=== PATIENT | female | born 1930 | race Caucasian/White ===

== ENCOUNTER 2016-05-21 10:40 | Inpatient (IN) | payer OTHER ==
--- NOTE | 2016-05-21 10:45 | PDOC ---
History of Present Illness <Sam Yarbrough - Last Filed: 05/21/16 15:16> - General History Source: Patient, Longterm Records, Old Records Exam Limitations: No Limitations - History of Present Illness Initial Comments: 05/21/16 11:40 The patient is a 86 year old female with a significant past medical history of Penny's syndrome, dementia, diabetes, congestive heart failure, atrial fibrillation, aortic stenosis, right BKA, anemia, COPD, who presents to the emergency department today from her [facility], for further evaluation of a distended abdomen. The patient states that she does not feel any abdominal pain with or without palpation. The HPI is limited due to the patient's dementia. <Mingo Whitney - Last Filed: 05/21/16 16:09> - General Chief Complaint: Pain Stated Complaint: ABD PAIN Time Seen by Provider: 05/21/16 10:44 Past History - Past Medical History Anemia: Yes Cardiac Disorders: Yes (a-fib, chf, aortic valve disorder) COPD: Yes CHF: Yes Dementia: Yes Diabetes: Yes GI Disorders: Yes (Penny Syndrome) Thyroid Disease: Yes (Hypothyroid) - Surgical History Orthopedic Surgery: Yes - Psycho/Social/Smoking Cessation Hx Anxiety: No Suicidal Ideation: No Smoking History: Unknown if ever smoked Hx Alcohol Use: No Drug/Substance Use Hx: No Substance Use Type: None <Sam Yarbrough - Last Filed: 05/21/16 15:16> <Mingo Whitney - Last Filed: 05/21/16 16:09> - Past Medical History Allergies/Adverse Reactions: Allergies Allergy/AdvReac Type Severity Reaction Status Date / Time gluten Allergy Severe Verified 09/24/15 18:33 Penicillins Allergy Verified 09/19/15 17:40 vancomycin Allergy Verified 09/19/15 17:40 Home Medications: Ambulatory Orders Aspirin [ASA -] 81 mg PO DAILY 09/19/15 Carvedilol 3.125 mg PO BID 09/19/15 Cholecalciferol (Vitamin D3) [Vitamin D3] 1,000 unit PO DAILY 09/19/15 Clopidogrel Bisulfate [Clopidogrel] 75 mg PO DAILY 09/19/15 Docusate Sodium [Colace -] 300 mg PO HS 09/19/15 Furosemide [Lasix -] 40 mg PO DAILY 09/19/15 Insulin Aspart [Novolog Flexpen] 0 unit SQ ASDIR 09/19/15 Insulin Glargine,Hum.rec.anlog [Lantus Solostar PEN -] 20 units SQ DAILY Levothyroxine [Synthroid -] 100 mcg PO DAILY 09/19/15 Magnesium Hydrox 2400MG/30Ml [Milk of Magnesia -] 30 ml PO Q2D 09/19/15 Multivitamins [Multivit ([facility] Formulary)] 1 tab PO DAILY 09/19/15 Polyethylene Glycol 3350 [Gavilax] 17 gm PO DAILY 09/19/15 Sennosides [Senna] 2 tab PO HS 09/19/15 Potassium Chloride [K-Dur -] 20 meq PO DAILY #30 tablet.er 09/24/15 Lactulose 20 gm PO ASDIR 05/21/16 Review of Systems - Review of Systems Able to Perform ROS?: No Comments:: 05/21/16 11:41 Limited due to patient's dementia. Dr. Lebron called and notes that he had the patient on Cipro and Flagyl with no alleviation of symptoms. He wants the patient admitted. Wants patient to receive a GI consult. <Mingo Whitney - Last Filed: 05/21/16 16:09> *Physical Exam - Vital Signs Last Vital Signs Temp Pulse Resp BP Pulse Ox 98.4 F 62 18 155/63 95 05/21/16 10:53 05/21/16 10:53 05/21/16 10:53 05/21/16 10:53 05/21/16 10:53 - Physical Exam Comments: 05/21/16 11:45 GENERAL: A&O x1 in no acute distress HEAD: No signs of trauma EYES: PERRLA, EOMI, sclera anicteric, conjunctiva clear ENT: Auricles normal inspection, hearing grossly normal, nares patent, oropharynx clear without exudates. Moist mucosa NECK: Normal ROM, supple, no lymphadenopathy, JVD, or masses LUNGS: Breath sounds equal, clear to auscultation bilaterally. No wheezes, and no crackles HEART: Regular rate and rhythm, normal S1 and S2, no murmurs, rubs or gallops ABDOMEN: (+) Distended taut abdomen nonpainful to palpation, Soft, nontender, normoactive bowel sounds. No guarding, no rebound. EXTREMITIES: (+) Right AKA amputation. Normal range of motion, no edema. No clubbing or cyanosis. No cords, erythema, or tenderness NEUROLOGICAL: Cranial nerves II through XII grossly intact. Normal speech, normal gait SKIN: Warm, Dry, normal turgor, no rashes or lesions noted. <Mingo Whitney - Last Filed: 05/21/16 16:09> Heart Score/ECG Review - ECG Impressions Comment:: 05/21/16 11:52 ECG Impression: Sinus bradycardia with occasional premature ventricular complexes. Nonspecific intraventricular block. Inferior infarct, age undetermined. Abnormal ECG. <Mingo Whitney - Last Filed: 05/21/16 16:09> ED Treatment Course - LABORATORY CBC & Chemistry Diagram: 05/21/16 11:30 05/21/16 11:30 <Sam Yarbrough - Last Filed: 05/21/16 15:16> - LABORATORY CBC & Chemistry Diagram: 05/21/16 11:30 05/21/16 11:30 <Mingo Whitney - Last Filed: 05/21/16 16:09> Medical Decision Making - Medical Decision Making 05/21/16 14:47 Dr. Katelin Whitaker was paged. 05/21/16 15:07 Dr. Sam Sullivan called back. Case discussed. Agreed to admit. <Mingo Whitney - Last Filed: 05/21/16 16:09> *DC/Admit/Observation/Transfer - Discharge Dispostion Admit: Yes - Attestations Physician Attestion: 05/21/16 10:45 I, Dr. Sam Yarbrough, attest that this document has been prepared under my direction and personally reviewed by me in its entirety. I further attest, that it accurately reflects all work, treatment, procedures and medical decision -making performed by me. <Sam Yarbrough - Last Filed: 05/21/16 15:16> - Attestations Scribe Attestion: 05/21/16 11:47 Documentation prepared by Mingo Whitney, acting as medical billing instructor for Sam Yarbrough MD. <Mingo Whitney - Last Filed: 05/21/16 16:09> Diagnosis at time of Disposition: Pseudoobstruction of colon CHF (congestive heart failure) Qualifiers: Congestive heart failure type: unspecified congestive heart failure type - Discharge Dispostion Condition at time of disposition: Improved
[2016-05-21 11:44] LABS: BASOPHIL 0.8 % (0-2.0); MCH 30.9 pg (25.7-33.7); MCHC 32.7 g/dl (32.0-36.0); MEAN CELL VOLUME 94.4 fl (80-96); MEAN PLT VOLUME 11.1 fl (7.5-11.1); PLATELET COUNT 160 K/MM3 (134-434); RDW 14.4 % (11.6-15.6); WHITE BLOOD COUNT 8.3 K/mm3 (4.0-10.0)
[2016-05-21 11:48] LABS: INR 1.12 (0.82-1.09); PROTHROMBIN TIME (PATIENT) 12.4 SEC (9.98-11.88)
[2016-05-21 12:05] LABS: URINE APPEARANCE CLEAR; URINE BILIRUBIN NEGATIVE (NEGATIVE); URINE BLOOD NEGATIVE (NEGATIVE); URINE COLOR STRAW; URINE GLUCOSE (UA) NEGATIVE (NEGATIVE); URINE KETONE NEGATIVE (NEGATIVE); URINE NITRITE POSITIVE (NEGATIVE); URINE PROTEIN NEGATIVE (NEGATIVE); URINE UROBILINOGEN NEGATIVE E.U./dl (0.2-1.0)
[2016-05-21 12:06] LABS: URINE LEUK ESTERASE TRACE (NEGATIVE)
[2016-05-21 12:06] LABS: ALBUMIN 3.3 g/dl (3.4-5.0); BILIRUBIN,TOTAL 0.3 mg/dL (0.2-1.0); CALCIUM 9.3 mg/dL (8.5-10.1); TOT PROT 6.7 g/dl (6.4-8.2)
[2016-05-21 12:09] LABS: TROPONIN I 0.02 ng/ml (0.00-0.05)
[2016-05-21 12:09] LABS: URINE BACTERIA MODERATE /hpf (NONE SEEN); URINE MUCUS RARE; URINE WBC 3 /hpf (3-5)
--- NOTE | 2016-05-21 12:27 | HP ---
Admitting History and Physical - Primary Care Physician PCP: Ebenezer Farris - Admission Chief Complaint: abd distension History of Present Illness: ER HISTORY - History of Present Illness Initial Comments: 05/21/16 11:40 The patient is a 86 year old female with a significant past medical history of Penny's syndrome, dementia, diabetes, congestive heart failure, atrial fibrillation, aortic stenosis, right BKA, anemia, COPD, who [facility] for further evaluation of a distended abdomen. The patient states that she does not feel any abdominal pain with or without palpation. The HPI is limited due to the patient's dementia. Pt seen by me in the ER Spoke to Dr Farris from [facility] who is her PMD there. For last week, her abdomen had worsening distension - no nausea, pain , vomiting or diarrhea or constipation. She was started on PO Cipro and Flagyl there in [place]-pt was frequently turned and rectal tubes ere placed in the past at the [place] as per PMD. 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) Endocrine: Yes: Diabetes Mellitus - Smoking History Smoking history: Never smoked - Alcohol/Substance Use Hx Alcohol Use: No - Social History ADL: Support Services History of Recent Travel: No Home Medications - Allergies Allergies/Adverse Reactions: Allergies Allergy/AdvReac Type Severity Reaction Status Date / Time gluten Allergy Severe Verified 09/24/15 18:33 Penicillins Allergy Verified 09/19/15 17:40 vancomycin Allergy Verified 09/19/15 17:40 - Home Medications Home Medications: Ambulatory Orders Aspirin [ASA -] 81 mg PO DAILY 09/19/15 Carvedilol 3.125 mg PO BID 09/19/15 Cholecalciferol (Vitamin D3) [Vitamin D3] 1,000 unit PO DAILY 09/19/15 Clopidogrel Bisulfate [Clopidogrel] 75 mg PO DAILY 09/19/15 Docusate Sodium [Colace -] 300 mg PO HS 09/19/15 Furosemide [Lasix -] 40 mg PO DAILY 09/19/15 Insulin Aspart [Novolog Flexpen] 0 unit SQ ASDIR 06/02/16 Insulin Glargine,Hum.rec.anlog [Lantus Solostar PEN -] 20 units SQ DAILY Levothyroxine [Synthroid -] 100 mcg PO DAILY 09/19/15 Magnesium Hydrox 2400MG/30Ml [Milk of Magnesia -] 30 ml PO Q2D 09/19/15 Multivitamins [Multivit ([facility] Formulary)] 1 tab PO DAILY 09/19/15 Polyethylene Glycol 3350 [Gavilax] 17 gm PO DAILY 09/19/15 Sennosides [Senna] 2 tab PO HS 09/19/15 Potassium Chloride [K-Dur -] 20 meq PO DAILY #30 tablet.er 09/24/15 Lactulose 20 gm PO ASDIR 05/21/16 Review of Systems - Review of Systems Constitutional: denies: Chills, Lethargy, Loss of Appetite, Weakness Cardiovascular: denies: Chest Pain, Edema, Palpitations, Shortness of Breath Respiratory: denies: Cough Gastrointestinal: denies: Abdominal Pain, Bloating, Constipation, Diarrhea, Dysphagia, Indigestion, Nausea, Vomiting Physical Examination Vital Signs: Vital Signs Temperature 98.4 F 05/21/16 10:53 Pulse Rate 62 05/21/16 10:53 Respiratory Rate 18 05/21/16 10:53 Blood Pressure 155/63 05/21/16 10:53 O2 Sat by Pulse Oximetry (%) 95 05/21/16 10:53 Constitutional: Yes: No Distress, Calm Cardiovascular: Yes: Regular Rate and Rhythm Respiratory: Yes: Diminished Gastrointestinal: Yes: Normal Bowel Sounds, Soft, Distention (largely distended abdomen, tympanic +). No: Tenderness Extremities: Yes: Other (right BKA) Edema: Yes Edema: LLE: 1+ Psychiatric: Yes: Alert Labs: CBC, BMP 05/21/16 11:30 05/21/16 11:30 Imaging - Results Chest X-ray: Image Reviewed (no infiltrate) Cat Scan: Pending EKG: Pending Problem List - Problems (1) Abdominal distention Code(s): R14.0 - ABDOMINAL DISTENSION (GASEOUS) (2) Adynamic ileus Code(s): K56.0 - PARALYTIC ILEUS (3) CAD (coronary artery disease) Code(s): I25.10 - ATHSCL HEART DISEASE OF [place] CORONARY ARTERY W/O ANG PCTRS Qualifiers: Coronary Disease-Associated Artery/Lesion type: [place] artery [place] vs. transplanted heart: [place] heart Associated angina: without angina Qualified Code(s): I25.10 - Atherosclerotic heart disease of [place] coronary artery without angina pectoris (4) Dementia Code(s): F03.90 - UNSPECIFIED DEMENTIA WITHOUT BEHAVIORAL DISTURBANCE Qualifiers: Dementia type: Alzheimer's disease Alzheimer's disease onset: late- onset Dementia behavioral disturbance: without behavioral disturbance Qualified Code(s): G30.1 - Alzheimer's disease with late onset; F02.81 - Dementia in other diseases classified elsewhere with behavioral disturbance (5) Afib Code(s): I48.91 - UNSPECIFIED ATRIAL FIBRILLATION Qualifiers: Atrial fibrillation type: paroxysmal Qualified Code(s): I48.0 - Paroxysmal atrial fibrillation (6) IDDM (insulin dependent diabetes mellitus) Code(s): E11.9 - TYPE 2 DIABETES MELLITUS WITHOUT COMPLICATIONS Z79.4 - LEACH TANK TENDER (CURRENT) USE OF INSULIN (7) [place]'s syndrome Code(s): K59.8 - OTHER SPECIFIED FUNCTIONAL INTESTINAL DISORDERS Assessment/Plan PLAN -- for Ct abd -- NPO -- IV fluids gentle -- GI evaluation - Dr Sullivan-- per Dr Farris's request -- will need rectal tube for decompression -- will resume PO if ok with GI
--- NOTE | 2016-05-21 15:18 | PN ---
Progress Note (short form) - Note Progress Note: called to evaluate patient however per Dr. Yarbrough, Dr. Farris specifically wanted Dr. Sullivan. He said that he would be calling Dr. Sullivan for consult and cancelling consult to my group
[2016-05-21] MEDS ORDERED: FUROSEMIDE 40 MG/4 ML INJECTABLE VIAL IVPUSH ONE (15:19)
[2016-05-21] MEDS ORDERED: FUROSEMIDE 40 MG/4 ML INJECTABLE VIAL ONE (15:39)
--- NOTE | 2016-05-21 17:06 | EKG ---
Test Reason : Blood Pressure : / mmHG Vent. Rate : 058 BPM Atrial Rate : 058 BPM P-R Int : 194 ms QRS Dur : 144 ms QT Int : 456 ms P-R-T Axes : 086 -17 075 degrees QTc Int : 447 ms SINUS BRADYCARDIA WITH OCCASIONAL PREMATURE VENTRICULAR COMPLEXES NON-SPECIFIC INTRA-VENTRICULAR CONDUCTION BLOCK INFERIOR INFARCT , AGE UNDETERMINED ABNORMAL ECG WHEN COMPARED WITH ECG OF 19-SEP-2015 17:39, NONSPECIFIC T WAVE ABNORMALITY NO LONGER EVIDENT IN ANTERIOR LEADS QT HAS SHORTENED Confirmed by ARUL BAUTISTA MD ([id number]) on 05/21/2016 5:06:30 PM Referred By: Confirmed By:RAUL BAUTISTA MD
[2016-05-21 19:00] VITALS: BMI 37.3
--- NOTE | 2016-05-21 19:18 | CON.GI ---
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) Hepatobiliary: No: Cirrhosis, Cholelithiasis, Cholecystitis, Choledocholithiasis , Hepatitis A, Hepatitis B, Hepatitis C, Other Renal/: No: Renal Failure, Renal Inusuff, BPH, Cancer, Hematuria, Hemodialysis , Neurogenic Bladder, Renal Calculi, UTI, Other Reproductive: No: Ectopic , Endometriosis, Fibroids, PID, Polycystic Ovary Syndrome, Postmenopausal, Other ...: No Infectious Disease: No: AIDS, C-Diff, Herpes Zoster, HIV, MRSA, STD's, Tuberculosis, VREF, Other Musculoskeletal: No: Bursitis, Chronic low back pain, Hemiparesis, Hemiplegia, Osteoarthritis, Paraplegia, Other Rheumatology: No: Fibromyalgia, Gout, Lupus, Rheumatoid Arthritis, Sarcoidosis, Vasculitis, Other Endocrine: Yes: Diabetes Mellitus Additional Medical History: peripheral vascular disease culminating in right AKA. morbid obesity - Alcohol/Substance Use Hx Alcohol Use: No - Smoking History Smoking history: Never smoked - Social History Usual Living Arrangement: Senior Living ADL: Support Services History of Recent Travel: No Home Medications - Allergies Allergies/Adverse Reactions: Allergies Allergy/AdvReac Type Severity Reaction Status Date / Time gluten Allergy Severe Verified 09/24/15 18:33 Penicillins Allergy Verified 09/19/15 17:40 vancomycin Allergy Verified 09/19/15 17:40 - Home Medications Home Medications: Ambulatory Orders Aspirin [ASA -] 81 mg PO DAILY 09/19/15 Carvedilol 3.125 mg PO BID 09/19/15 Cholecalciferol (Vitamin D3) [Vitamin D3] 1,000 unit PO DAILY 09/19/15 Clopidogrel Bisulfate [Clopidogrel] 75 mg PO DAILY 09/19/15 Docusate Sodium [Colace -] 300 mg PO HS 09/19/15 Furosemide [Lasix -] 40 mg PO DAILY 09/19/15 Insulin Aspart [Novolog Flexpen] 0 unit SQ ASDIR 09/19/15 Insulin Glargine,Hum.rec.anlog [Lantus Solostar PEN -] 20 units SQ DAILY Levothyroxine [Synthroid -] 100 mcg PO DAILY 09/19/15 Magnesium Hydrox 2400MG/30Ml [Milk of Magnesia -] 30 ml PO Q2D 09/19/15 Multivitamins [Multivit ([facility] Formulary)] 1 tab PO DAILY 09/19/15 Polyethylene Glycol 3350 [Gavilax] 17 gm PO DAILY 09/19/15 Sennosides [Senna] 2 tab PO HS 09/19/15 Potassium Chloride [K-Dur -] 20 meq PO DAILY #30 tablet.er 09/24/15 Lactulose 20 gm PO ASDIR 05/21/16 Family Disease History - Family Disease History Family History: Unable to Obtain Review of Systems - Review of Systems Constitutional: reports: No Symptoms Eyes: reports: No Symptoms HENT: reports: No Symptoms Neck: reports: No Symptoms Cardiovascular: reports: No Symptoms Gastrointestinal: reports: Abdominal Pain, Bloating, Constipation, Diarrhea, Other (ATR RESIDENTIAL WAS GETTING ENEMAS TWO TO THREE TIMES A WEEK) Genitourinary: reports: No Symptoms Musculoskeletal: reports: No Symptoms Neurological: reports: No Symptoms Physical Exam-GI Vital Signs: Vital Signs Temperature 97.7 F 05/21/16 18:48 Pulse Rate 64 05/21/16 18:48 Respiratory Rate 14 05/21/16 18:48 Blood Pressure 128/60 05/21/16 18:48 O2 Sat by Pulse Oximetry (%) 97 05/21/16 18:48 Constitutional: Yes: No Distress Eyes: Yes: Conjunctiva Clear HENT: Yes: Normocephalic Neck: Yes: Supple Cardiovascular: Yes: Regular Rate and Rhythm Respiratory: Yes: WNL Gastrointestinal Inspection: Yes: Distention ...Auscultate: Yes: Hyperactive Bowel Sounds, Other (HIGH PITCHED) ...Palpate: Yes: Other (NONTENDER FULL) ...Rectal Exam: Yes: Guaiac Negative, Other (MUDDY YELLOW STOOL) Extremities: Yes: Amputation Labs: INR, PTT INR 1.12 (0.82-1.09) 05/21/16 11:30 Laboratory Tests 05/21/16 05/21/16 05/21/16 11:30 11:30 11:30 WBC 8.3 RBC 4.12 Hgb 12.7 Hct 38.9 MCV 94.4 MCHC 32.7 RDW 14.4 Plt Count 160 MPV 11.1 Neutrophils % 70.0 Lymphocytes % 19.8 Monocytes % 7.4 Eosinophils % 2.0 Basophils % 0.8 INR 1.12 Sodium 140 Potassium 4.2 Chloride 105 Carbon Dioxide 25 Anion Gap 10 BUN 41 H D Creatinine 1.0 D Creat Clearance w eGFR 52.69 Random Glucose 184 H D Calcium 9.3 Total Bilirubin 0.3 D AST 9 L ALT 12 Alkaline Phosphatase 95 Creatine Kinase 46 B-Natriuretic Peptide 1963.79 H Total Protein 6.7 Albumin 3.3 L Lipase 104 Urine Nitrite Ur Leukocyte Esterase Urine WBC Urine Bacteria 05/21/16 11:43 WBC RBC Hgb Hct MCV MCHC RDW Plt Count MPV Neutrophils % Lymphocytes % Monocytes % Eosinophils % Basophils % INR Sodium Potassium Chloride Carbon Dioxide Anion Gap BUN Creatinine Creat Clearance w eGFR Random Glucose Calcium Total Bilirubin AST ALT Alkaline Phosphatase Creatine Kinase B-Natriuretic Peptide Total Protein Albumin Lipase Urine Nitrite Positive Ur Leukocyte Esterase Trace H Urine WBC 3 Urine Bacteria Moderate Imaging - Results Cat Scan: Image Reviewed Problem List - Problems (1) Penny's syndrome Assessment/Plan: PATIENT HAS A HISTORY OF A FEW ADMISSIONS FOR THE SAME. THE LAST TIME SHE DID WELL WITH RECTAL TUBE DECOMPRESSION. WITH THE FAMILY'S PERMISSION I INSERTED A RED RECTAL TUBE AND THIS PRODUCED A GUSH OF AIR AND STOOL AND IMMEDIATE RELIEF OF THE SEVERE DISTENSION. SHE CAN HAVE A FULL LIQUID DIET. I WILL KEEP THE TUBE IN AT LEAST OVERNIGHT IF NOT MORE. I WILL GIVE ONE EMEMA VIA THE RECTAL TUBE TONIGHT AND THEN LET IT DRAIN OVER NIGHT IN A KEANE BAG. I WILL EXAMINE HER TOMORROW. IF SHE STARTS GETTING DISTENDED AGAIN THE USE OF IV ERYTHROMICIN HAS BEEN SHOWN TO BE HELPFUL AND THE USE OF NEOSTIGMINE HAS BEEN THE STANDARD OF CARE BUT WITH HER CARDIAC ISSUE THIS MAY BE A PROBLEM. DESPITE THE ABOVE A FLEXIBLE SIGMOIDOSCOPY COULD BE DONE TO REMOVE AIR AND STOOL. SO FAR THE PASSAGE OF THE TUBE SEEMS TO HAVE MADE A BIG DIFFERENCE. WILL FOLLOW. Code(s): K59.8 - OTHER SPECIFIED FUNCTIONAL INTESTINAL DISORDERS (2) CHF (congestive heart failure) Code(s): I50.9 - HEART FAILURE, UNSPECIFIED Qualifiers: Congestive heart failure type: unspecified congestive heart failure type (3) CAD (coronary artery disease) Code(s): I25.10 - ATHSCL HEART DISEASE OF [place] CORONARY ARTERY W/O ANG PCTRS Qualifiers: Coronary Disease-Associated Artery/Lesion type: [place] artery [place] vs. transplanted heart: [place] heart Associated angina: without angina Qualified Code(s): I25.10 - Atherosclerotic heart disease of [place] coronary artery without angina pectoris (4) Chronic atrial fibrillation Code(s): I48.2 - CHRONIC ATRIAL FIBRILLATION (5) IDDM (insulin dependent diabetes mellitus) Code(s): E11.9 - TYPE 2 DIABETES MELLITUS WITHOUT COMPLICATIONS Z79.4 - ALF (CURRENT) USE OF INSULIN (6) Morbid obesity with BMI of 40.0-44.9, adult Code(s): Z68.41 - BODY MASS INDEX (BMI) 40.0-44.9, ADULT (7) Urinary tract infection Code(s): N39.0 - URINARY TRACT INFECTION, SITE NOT SPECIFIED
[2016-05-21] MEDS ORDERED: SODIUM PHOSPHATE/NA BIPHOS 133 ML ENEMA PR ONE (20:25)
[2016-05-21] MEDS: CARVEDILOL 3.125 MG TABLET (FP) PO SCH (22:31)
[2016-05-22] MEDS: INSULIN SLIDING SCALE (NOVOLOG) 1 VIAL SQ SCH ×3 (06:18→16:32)
[2016-05-22] MEDS: LEVOTHYROXINE NA 100 MCG TABLET (FP) PO SCH (06:18)
[2016-05-22] MEDS ORDERED: INSULIN (NOVOLOG) ASPART 100 UNITS/ML 10ML VIAL ONE ×3 (06:39→16:24)
[2016-05-22 07:45] LABS: BASOPHIL 0.9 % (0-2.0); EOSINOPHIL 2.6 % (0-4.5); MCH 31.5 pg (25.7-33.7); MEAN CELL VOLUME 95.5 fl (80-96); NEUTROPHILS 52.9 % (42.8-82.8); PLATELET COUNT 153 K/MM3 (134-434); RDW 14.3 % (11.6-15.6); WHITE BLOOD COUNT 6.8 K/mm3 (4.0-10.0)
[2016-05-22 08:04] LABS: CALCIUM 8.7 mg/dL (8.5-10.1)
[2016-05-22 08:06] LABS: BILIRUBIN,TOTAL 0.3 mg/dL (0.2-1.0); CREATININE 0.9 mg/dL (0.55-1.02); TOT PROT 5.8 g/dl (6.4-8.2)
[2016-05-22 08:26] LABS: THYROID STIMULATING HORMONE 2.79 uIU/ml (0.358-3.74)
--- NOTE | 2016-05-22 08:42 | PN ---
Progress Note (short form) - Note Progress Note: SUBJECTIVE: Patient seen and examined. Chart reviewed. Comfortable. Denies pain. OBJECTIVE: Vital Signs 05/22/16 06:51 Temperature 97.5 F L Pulse Rate 56 L Respiratory 16 Rate Blood Pressure 142/58 Intake & Output 05/21/16 05/22/16 05/22/16 23:59 07:59 15:59 Intake Total 300 Output Total 2300 700 Balance -2000 -700 Weight 101.786 kg 104.099 kg Intake: Oral 300 Output: Urine 2300 700 Hand 2300 700 Other: Voiding Method Indwelling Catheter Indwelling Catheter Bowel Movement No Height 5 ft 5 in Body Mass Index (BMI) 37.3 Weight Measurement Method Built in [facility] Active Medications Aspirin (Asa -) 81 mg PO DAILY [facility] Carvedilol (Coreg -) 3.125 mg PO BID [facility] Last Admin: 05/21/16 22:31 Dose: 3.125 mg Clopidogrel Bisulfate (Plavix -) 75 mg PO DAILY [facility] Furosemide (Lasix -) 40 mg PO DAILY [facility] Insulin Aspart (Novolog Vial Sliding Scale -) 1 vial SQ TIDAC [facility] PRN Reason: Protocol Last Admin: 05/22/16 06:18 Dose: Not Given Levothyroxine Sodium (Synthroid -) 100 mcg PO DAILY@0700 [facility] Last Admin: 05/22/16 06:18 Dose: 100 mcg Potassium Chloride (K-Dur -) 20 meq PO DAILY [facility] CBC, BMP 05/22/16 06:15 05/22/16 06:15 Laboratory Results - last 24 hr 05/21/16 05/21/16 05/21/16 11:30 11:30 11:30 WBC 8.3 RBC 4.12 Hgb 12.7 Hct 38.9 MCV 94.4 MCHC 32.7 RDW 14.4 Plt Count 160 MPV 11.1 Neutrophils % 70.0 Lymphocytes % 19.8 Monocytes % 7.4 Eosinophils % 2.0 Basophils % 0.8 INR 1.12 Sodium 140 Potassium 4.2 Chloride 105 Carbon Dioxide 25 Anion Gap 10 BUN 41 H D Creatinine 1.0 D Creat Clearance w eGFR 52.69 POC Glucometer Random Glucose 184 H D Calcium 9.3 Total Bilirubin 0.3 D AST 9 L ALT 12 Alkaline Phosphatase 95 Creatine Kinase 46 Troponin I 0.02 B-Natriuretic Peptide 1963.79 H Total Protein 6.7 Albumin 3.3 L Lipase 104 TSH Urine Color Urine Appearance Urine pH Ur Specific [place] Urine Protein Urine Glucose (UA) Urine Ketones Urine Blood Urine Nitrite Urine Bilirubin Urine Urobilinogen Ur Leukocyte Esterase Urine RBC Urine WBC Urine Bacteria Urine Mucus 05/21/16 05/22/16 05/22/16 11:43 06:14 06:15 WBC RBC Hgb Hct MCV MCHC RDW Plt Count MPV Neutrophils % Lymphocytes % Monocytes % Eosinophils % Basophils % INR Sodium 141 Potassium 4.5 Chloride 104 Carbon Dioxide 27 Anion Gap 10 BUN 44 H Creatinine 0.9 Creat Clearance w eGFR 59.51 POC Glucometer 110 Random Glucose 113 H D Calcium 8.7 Total Bilirubin 0.3 AST 6 L D ALT 9 L D Alkaline Phosphatase 75 D Creatine Kinase Troponin I B-Natriuretic Peptide Total Protein 5.8 L Albumin 3.0 L Lipase TSH 2.79 Urine Color Straw Urine Appearance Clear Urine pH 5.0 Ur Specific [place] 1.006 Urine Protein Negative Urine Glucose (UA) Negative Urine Ketones Negative Urine Blood Negative Urine Nitrite Positive Urine Bilirubin Negative Urine Urobilinogen Negative Ur Leukocyte Esterase Trace H Urine RBC None Urine WBC 3 Urine Bacteria Moderate Urine Mucus Rare 05/22/16 06:15 WBC 6.8 RBC 3.71 Hgb 11.7 Hct 35.4 MCV 95.5 MCHC 33.0 RDW 14.3 Plt Count 153 MPV 11.0 Neutrophils % 52.9 D Lymphocytes % 35.1 D Monocytes % 8.5 Eosinophils % 2.6 Basophils % 0.9 INR Sodium Potassium Chloride Carbon Dioxide Anion Gap BUN Creatinine Creat Clearance w eGFR POC Glucometer Random Glucose Calcium Total Bilirubin AST ALT Alkaline Phosphatase Creatine Kinase Troponin I B-Natriuretic Peptide Total Protein Albumin Lipase TSH Urine Color Urine Appearance Urine pH Ur Specific [place] Urine Protein Urine Glucose (UA) Urine Ketones Urine Blood Urine Nitrite Urine Bilirubin Urine Urobilinogen Ur Leukocyte Esterase Urine RBC Urine WBC Urine Bacteria Urine Mucus Microbiology 05/21/16 11:43 Urine Culture - Preliminary Urine - Urine Clean Catch Non Lactose Fermenting Gnb PHYSICAL EXAMINATION: Constitutional: Yes: No Distress, Calm Cardiovascular: Yes: Regular Rate and Rhythm Respiratory: Yes: Diminished Gastrointestinal: Yes: Normal Bowel Sounds, Soft No: Tenderness. Extremities: Yes: Other (right BKA) Edema: Yes Edema: LLE: 1+ Psychiatric: Yes: Alert. Rectal and Hand tube in place. ASSESSMENT & PLAN: - Much better with rectal tube. - Continue present care. - Urine culture showing gram negative bacili. - Patient denies any urinary burning. She is asymptomatic. - Will not treat. - Also she is recently treated with antibiotics in the [facility]. - Daily out of bed to chair. - GI to folllow. - Will follow. Problem List - Problems (1) Abdominal distention Code(s): R14.0 - ABDOMINAL DISTENSION (GASEOUS) (2) Adynamic ileus Code(s): K56.0 - PARALYTIC ILEUS (3) CAD (coronary artery disease) Code(s): I25.10 - ATHSCL HEART DISEASE OF [place] CORONARY ARTERY W/O ANG PCTRS Qualifiers: Coronary Disease-Associated Artery/Lesion type: [place] artery [place] vs. transplanted heart: [place] heart Associated angina: without angina Qualified Code(s): I25.10 - Atherosclerotic heart disease of [place] coronary artery without angina pectoris (4) Dementia Code(s): F03.90 - UNSPECIFIED DEMENTIA WITHOUT BEHAVIORAL DISTURBANCE Qualifiers: Dementia type: Alzheimer's disease Alzheimer's disease onset: late- onset Dementia behavioral disturbance: without behavioral disturbance Qualified Code(s): G30.1 - Alzheimer's disease with late onset; F02.81 - Dementia in other diseases classified elsewhere with behavioral disturbance (5) Afib Code(s): I48.91 - UNSPECIFIED ATRIAL FIBRILLATION Qualifiers: Atrial fibrillation type: paroxysmal Qualified Code(s): I48.0 - Paroxysmal atrial fibrillation (6) IDDM (insulin dependent diabetes mellitus) Code(s): E11.9 - TYPE 2 DIABETES MELLITUS WITHOUT COMPLICATIONS 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
[2016-05-22] MEDS: CARVEDILOL 3.125 MG TABLET (FP) PO SCH ×2 (10:04→22:01)
[2016-05-22] MEDS: ASPIRIN 81 MG CHEWABLE TABLETS PO SCH (10:04)
[2016-05-22] MEDS: CLOPIDOGREL BISULFATE 75 MG TABLET (FP) PO SCH (10:05)
[2016-05-22] MEDS: POTASSIUM CHLORIDE TABS 20 MEQ TABLET.ER (FP) PO SCH (10:05)
[2016-05-22] MEDS: FUROSEMIDE 40 MG TABLET (FP) PO SCH (10:05)
--- NOTE | 2016-05-22 16:56 | PN ---
GI Progress Note Subjective: GASTROENTEROLOGY TOLERATES DIET, RECTAL TUBE STILL IN PLACE , NO ABDOMINAL PAIN, MUCH LESS ABDOMINAL DISTENSION TODAY - Objective Vital Signs: Vital Signs Temperature 98.2 F 05/22/16 14:00 Pulse Rate 83 05/22/16 14:00 Respiratory Rate 18 05/22/16 14:00 Blood Pressure 125/63 05/22/16 14:00 O2 Sat by Pulse Oximetry (%) 97 05/21/16 21:00 Constitutional: No Distress Eyes: Yes: Conjunctiva Clear HENT: Yes: Normocephalic Cardiovascular: Yes: Regular Rate and Rhythm Respiratory: Yes: Regular Gastrointestinal Inspection: Yes: Other (OBESE, MUCH LESS DISTENSION TODAY) ...Auscultate: Yes: Normoactive Bowel Sounds ...Palpate: Yes: Soft Extremities: Yes: Amputation Labs: CBC, BMP 05/22/16 06:15 05/22/16 06:15 INR, PTT INR 1.12 (0.82-1.09) 05/21/16 11:30 Laboratory Tests 05/22/16 05/22/16 06:15 06:15 WBC 6.8 RBC 3.71 Hgb 11.7 Hct 35.4 MCV 95.5 MCHC 33.0 RDW 14.3 Plt Count 153 MPV 11.0 Neutrophils % 52.9 D Lymphocytes % 35.1 D Monocytes % 8.5 Eosinophils % 2.6 Basophils % 0.9 Sodium 141 Potassium 4.5 Chloride 104 Carbon Dioxide 27 Anion Gap 10 BUN 44 H Random Glucose 113 H D Calcium 8.7 Total Bilirubin 0.3 AST 6 L D ALT 9 L D Alkaline Phosphatase 75 D Total Protein 5.8 L Albumin 3.0 L TSH 2.79 Problem List - Problems (1) Penny's syndrome Assessment/Plan: GOOD IMPROVEMENT IN ABDOMINAL DISTENSION, RECTAL TUBE REMOVED, FLEET ENEMA WILL BE GIVEN, HIGH FIBER DIET, AXR IN AM, GENTLE HYDRATION. Code(s): K59.8 - OTHER SPECIFIED FUNCTIONAL INTESTINAL DISORDERS (2) CHF (congestive heart failure) Code(s): I50.9 - HEART FAILURE, UNSPECIFIED Qualifiers: Congestive heart failure type: unspecified congestive heart failure type (3) CAD (coronary artery disease) Code(s): I25.10 - ATHSCL HEART DISEASE OF [place] CORONARY ARTERY W/O ANG PCTRS Qualifiers: Coronary Disease-Associated Artery/Lesion type: [place] artery [place] vs. 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
[2016-05-22] MEDS ORDERED: SODIUM PHOSPHATE/NA BIPHOS 133 ML ENEMA PR ONE (16:57)
[2016-05-23] MEDS: LEVOTHYROXINE NA 100 MCG TABLET (FP) PO SCH (06:26)
[2016-05-23] MEDS: INSULIN SLIDING SCALE (NOVOLOG) 1 VIAL SQ SCH ×3 (06:26→18:01)
[2016-05-23] MEDS: ASPIRIN 81 MG CHEWABLE TABLETS PO SCH (10:35)
[2016-05-23] MEDS: CLOPIDOGREL BISULFATE 75 MG TABLET (FP) PO SCH (10:35)
[2016-05-23] MEDS: FUROSEMIDE 40 MG TABLET (FP) PO SCH (10:35)
[2016-05-23] MEDS: CARVEDILOL 3.125 MG TABLET (FP) PO SCH ×2 (10:36→21:12)
[2016-05-23] MEDS: POTASSIUM CHLORIDE TABS 20 MEQ TABLET.ER (FP) PO SCH (10:36)
--- NOTE | 2016-05-23 12:39 | PN ---
Progress Note, Physician Chief Complaint: no distress no abd pain tolerating diet - Current Medication List Current Medications: Active Medications Aspirin (Asa -) 81 mg PO DAILY [facility] Last Admin: 05/23/16 10:35 Dose: 81 mg Carvedilol (Coreg -) 3.125 mg PO BID [facility] Last Admin: 05/23/16 10:36 Dose: 3.125 mg Clopidogrel Bisulfate (Plavix -) 75 mg PO DAILY [facility] Last Admin: 05/23/16 10:35 Dose: 75 mg Furosemide (Lasix -) 40 mg PO DAILY [facility] Last Admin: 05/23/16 10:35 Dose: 40 mg Insulin Aspart (Novolog Vial Sliding Scale -) 1 vial SQ TIDAC [facility] PRN Reason: Protocol Last Admin: 05/23/16 12:37 Dose: Not Given Levothyroxine Sodium (Synthroid -) 100 mcg PO DAILY@0700 [facility] Last Admin: 05/23/16 06:26 Dose: 100 mcg Potassium Chloride (K-Dur -) 20 meq PO DAILY [facility] Last Admin: 05/23/16 10:36 Dose: 20 meq - Objective Vital Signs: Vital Signs Temperature 97.7 F 05/23/16 06:06 Pulse Rate 65 05/23/16 06:06 Respiratory Rate 18 05/23/16 06:06 Blood Pressure 107/46 05/23/16 06:06 O2 Sat by Pulse Oximetry (%) 97 05/22/16 21:00 Constitutional: Yes: No Distress Cardiovascular: Yes: Regular Rate and Rhythm Respiratory: Yes: CTA Bilaterally Gastrointestinal: Yes: Normal Bowel Sounds, Soft, Distention. No: Tenderness Edema: No Labs: CBC, BMP 05/22/16 06:15 05/22/16 06:15 INR, PTT INR 1.12 (0.82-1.09) 05/21/16 11:30 Problem List - Problems (1) Abdominal distention Code(s): R14.0 - ABDOMINAL DISTENSION (GASEOUS) (2) Adynamic ileus Code(s): K56.0 - PARALYTIC ILEUS (3) CAD (coronary artery disease) Code(s): I25.10 - ATHSCL HEART DISEASE OF [place] CORONARY ARTERY W/O ANG PCTRS Qualifiers: Coronary Disease-Associated Artery/Lesion type: [place] artery [place] vs. transplanted heart: [place] heart Associated angina: without angina Qualified Code(s): I25.10 - Atherosclerotic heart disease of [place] coronary artery without angina pectoris (4) Dementia Code(s): F03.90 - UNSPECIFIED DEMENTIA WITHOUT BEHAVIORAL DISTURBANCE Qualifiers: Dementia type: Alzheimer's disease Alzheimer's disease onset: late- onset Dementia behavioral disturbance: without behavioral disturbance Qualified Code(s): G30.1 - Alzheimer's disease with late onset; F02.81 - Dementia in other diseases classified elsewhere with behavioral disturbance (5) Afib Code(s): I48.91 - UNSPECIFIED ATRIAL FIBRILLATION Qualifiers: Atrial fibrillation type: paroxysmal Qualified Code(s): I48.0 - Paroxysmal atrial fibrillation (6) IDDM (insulin dependent diabetes mellitus) Code(s): E11.9 - TYPE 2 DIABETES MELLITUS WITHOUT COMPLICATIONS 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
--- NOTE | 2016-05-23 12:45 | PN ---
GI Progress Note Subjective: GI NOte( covering for Dr Sullivan) : Had large BM today. Eating solid food lunch. Denies abdominal pain or nausea. 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 FUA still pending. Continue Miralax
[2016-05-23] MEDS: POLYETHYLENE GLYCOL 3350 119 GM BTL PO SCH ×2 (15:00→21:12)
[2016-05-24] MEDS: INSULIN SLIDING SCALE (NOVOLOG) 1 VIAL SQ SCH ×3 (06:06→17:46)
[2016-05-24] MEDS: LEVOTHYROXINE NA 100 MCG TABLET (FP) PO SCH (06:07)
--- NOTE | 2016-05-24 09:19 | PN ---
Progress Note, Physician Chief Complaint: no distress no abd pain tolerating diet has bm - Current Medication List Current Medications: Active Medications Aspirin (Asa -) 81 mg PO DAILY [facility] Last Admin: 05/23/16 10:35 Dose: 81 mg Carvedilol (Coreg -) 3.125 mg PO BID [facility] Last Admin: 05/23/16 21:12 Dose: 3.125 mg Clopidogrel Bisulfate (Plavix -) 75 mg PO DAILY [facility] Last Admin: 05/23/16 10:35 Dose: 75 mg Furosemide (Lasix -) 40 mg PO DAILY [facility] Last Admin: 05/23/16 10:35 Dose: 40 mg Insulin Aspart (Novolog Vial Sliding Scale -) 1 vial SQ TIDAC [facility] PRN Reason: Protocol Last Admin: 05/24/16 06:06 Dose: Not Given Levothyroxine Sodium (Synthroid -) 100 mcg PO DAILY@0700 [facility] Last Admin: 05/24/16 06:07 Dose: 100 mcg Polyethylene Glycol (Miralax (For Daily Use) -) 17 gm PO BID [facility] Last Admin: 05/23/16 21:12 Dose: Not Given Potassium Chloride (K-Dur -) 20 meq PO DAILY [facility] Last Admin: 05/23/16 10:36 Dose: 20 meq - Objective Vital Signs: Vital Signs Temperature 97.6 F 05/24/16 06:54 Pulse Rate 66 05/24/16 06:54 Respiratory Rate 20 05/24/16 06:54 Blood Pressure 132/68 05/24/16 06:54 O2 Sat by Pulse Oximetry (%) 97 05/23/16 21:00 Constitutional: Yes: No Distress Cardiovascular: Yes: Regular Rate and Rhythm Respiratory: Yes: Diminished Gastrointestinal: Yes: Normal Bowel Sounds, Soft, Distention. No: Tenderness Edema: No Labs: CBC, BMP 05/22/16 06:15 05/22/16 06:15 INR, PTT INR 1.12 (0.82-1.09) 05/21/16 11:30 Problem List - Problems (1) Abdominal distention Code(s): R14.0 - ABDOMINAL DISTENSION (GASEOUS) (2) Adynamic ileus Code(s): K56.0 - PARALYTIC ILEUS (3) CAD (coronary artery disease) Code(s): I25.10 - ATHSCL HEART DISEASE OF [place] CORONARY ARTERY W/O ANG PCTRS Qualifiers: Coronary Disease-Associated Artery/Lesion type: [place] artery [place] vs. transplanted heart: [place] heart Associated angina: without angina Qualified Code(s): I25.10 - Atherosclerotic heart disease of [place] coronary artery without angina pectoris (4) Dementia Code(s): F03.90 - UNSPECIFIED DEMENTIA WITHOUT BEHAVIORAL DISTURBANCE Qualifiers: Dementia type: Alzheimer's disease Alzheimer's disease onset: late- onset Dementia behavioral disturbance: without behavioral disturbance Qualified Code(s): G30.1 - Alzheimer's disease with late onset; F02.81 - Dementia in other diseases classified elsewhere with behavioral disturbance (5) Afib Code(s): I48.91 - UNSPECIFIED ATRIAL FIBRILLATION Qualifiers: Atrial fibrillation type: paroxysmal Qualified Code(s): I48.0 - Paroxysmal atrial fibrillation (6) IDDM (insulin dependent diabetes mellitus) Code(s): E11.9 - TYPE 2 DIABETES MELLITUS WITHOUT COMPLICATIONS 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
[2016-05-24] MEDS: CLOPIDOGREL BISULFATE 75 MG TABLET (FP) PO SCH (10:11)
[2016-05-24] MEDS: CARVEDILOL 3.125 MG TABLET (FP) PO SCH ×2 (10:11→22:30)
[2016-05-24] MEDS: POTASSIUM CHLORIDE TABS 20 MEQ TABLET.ER (FP) PO SCH (10:12)
[2016-05-24] MEDS: POLYETHYLENE GLYCOL 3350 119 GM BTL PO SCH ×2 (10:12→22:31)
[2016-05-24] MEDS: FUROSEMIDE 40 MG TABLET (FP) PO SCH (10:12)
[2016-05-24] MEDS: ASPIRIN 81 MG CHEWABLE TABLETS PO SCH (10:12)
--- NOTE | 2016-05-24 15:19 | PN ---
GI Progress Note Subjective: GI NOte ( for Dr Sullivan): Had BM and passed a good amount of flatus when turned onto her right side to be cleaned today. Eating with vigor and denies abdominal pain. - Objective Vital Signs: Vital Signs Temperature 98.0 F 05/24/16 14:46 Pulse Rate 64 05/24/16 14:46 Respiratory Rate 18 05/24/16 14:46 Blood Pressure 125/55 05/24/16 14:46 O2 Sat by Pulse Oximetry (%) 97 05/24/16 09:00 CBC,CMP WBC 6.8 K/mm3 (4.0-10.0) 05/22/16 06:15 RBC 3.71 M/mm3 (3.60-5.2) 05/22/16 06:15 Hgb 11.7 GM/dL (10.7-15.3) 05/22/16 06:15 Hct 35.4 % (32.4-45.2) 05/22/16 06:15 MCV 95.5 fl (80-96) 05/22/16 06:15 MCHC 33.0 g/dl (32.0-36.0) 05/22/16 06:15 RDW 14.3 % (11.6-15.6) 05/22/16 06:15 Plt Count 153 K/MM3 (134-434) 05/22/16 06:15 MPV 11.0 fl (7.5-11.1) 05/22/16 06:15 Neutrophils % 52.9 % (42.8-82.8) D 05/22/16 06:15 Lymphocytes % 35.1 % (8-40) D 05/22/16 06:15 Monocytes % 8.5 % (3.8-10.2) 05/22/16 06:15 Eosinophils % 2.6 % (0-4.5) 05/22/16 06:15 Basophils % 0.9 % (0-2.0) 05/22/16 06:15 Sodium 141 mmol/L (136-145) 05/22/16 06:15 Potassium 4.5 mmol/L (3.5-5.1) 05/22/16 06:15 Chloride 104 mmol/L (98-107) 05/22/16 06:15 Carbon Dioxide 27 mmol/L (21-32) 05/22/16 06:15 Anion Gap 10 (8-16) 05/22/16 06:15 BUN 44 mg/dL (7-18) H 05/22/16 06:15 Creatinine 0.9 mg/dL (0.55-1.02) 05/22/16 06:15 Creat Clearance w eGFR 59.51 (>60) 05/22/16 06:15 POC Glucometer 231 UNITS (()) 05/24/16 11:36 Random Glucose 113 mg/dL (74-106) H D 05/22/16 06:15 Calcium 8.7 mg/dL (8.5-10.1) 05/22/16 06:15 Total Bilirubin 0.3 mg/dL (0.2-1.0) 05/22/16 06:15 AST 6 U/L (15-37) L D 05/22/16 06:15 ALT 9 U/L (12-78) L D 05/22/16 06:15 Alkaline Phosphatase 75 U/L (45-117) D 05/22/16 06:15 Creatine Kinase 46 IU/L (26-192) 05/21/16 11:30 Troponin I 0.02 ng/ml (0.00-0.05) 05/21/16 11:30 B-Natriuretic Peptide 1963.79 pg/ml (5-450) H 05/21/16 11:30 Total Protein 5.8 g/dl (6.4-8.2) L 05/22/16 06:15 Albumin 3.0 g/dl (3.4-5.0) L 05/22/16 06:15 Lipase 104 U/L (73-393) 05/21/16 11:30 TSH 2.79 uIU/ml (0.358-3.74) 05/22/16 06:15 Constitutional: Calm Gastrointestinal Inspection: Yes: Distention ...Auscultate: Yes: Normoactive Bowel Sounds (tinkles) ...Palpate: Yes: Soft, Other (nontender) ...Percussion: Yes: Tympanitic Labs: CBC, BMP 05/22/16 06:15 05/22/16 06:15 INR, PTT INR 1.12 (0.82-1.09) 05/21/16 11:30 Assessment/Plan 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 Continue Miralax. Dr Sullivan will return tomorrow
[2016-05-25] MEDS: NITROFURANTOIN MACROCRYSTAL 50 MG CAPSULE (FP) PO SCH ×3 (00:06→12:03)
[2016-05-25] MEDS: LEVOTHYROXINE NA 100 MCG TABLET (FP) PO SCH (06:21)
[2016-05-25] MEDS: INSULIN SLIDING SCALE (NOVOLOG) 1 VIAL SQ SCH ×2 (06:54→11:31)
--- NOTE | 2016-05-25 08:16 | PN ---
Progress Note (short form) - Note Progress Note: SUBJECTIVE: Patient seen and examined. Chart reviewed. Comfortable. Having bowel movements. Denies pain. OBJECTIVE: Vital Signs 05/25/16 04:49 Temperature 97.8 F Pulse Rate 60 Respiratory 20 Rate Blood Pressure 135/58 Intake & Output 05/24/16 05/25/16 05/25/16 23:59 07:59 15:59 Intake Total 300 Balance 300 Intake: Oral 300 Other: Voiding Method Incontinent # Unmeasured Voids Void 1 3 Bowel Movement Yes Yes # Bowel Movements 1 Active Medications Aspirin (Asa -) 81 mg PO DAILY [facility] Last Admin: 05/24/16 10:12 Dose: 81 mg Carvedilol (Coreg -) 3.125 mg PO BID [facility] Last Admin: 05/24/16 22:30 Dose: 3.125 mg Clopidogrel Bisulfate (Plavix -) 75 mg PO DAILY [facility] Last Admin: 05/24/16 10:11 Dose: 75 mg Furosemide (Lasix -) 40 mg PO DAILY [facility] Last Admin: 05/24/16 10:12 Dose: 40 mg Insulin Aspart (Novolog Vial Sliding Scale -) 1 vial SQ TIDAC [facility] PRN Reason: Protocol Last Admin: 05/25/16 06:54 Dose: Not Given Levothyroxine Sodium (Synthroid -) 100 mcg PO DAILY@0700 [facility] Last Admin: 05/25/16 06:21 Dose: 100 mcg Nitrofurantoin Macrocrystals (Macrodantin -) 50 mg PO Q6HPO [facility] Last Admin: 05/25/16 06:22 Dose: 50 mg Polyethylene Glycol (Miralax (For Daily Use) -) 17 gm PO BID [facility] Last Admin: 05/24/16 22:31 Dose: Not Given Potassium Chloride (K-Dur -) 20 meq PO DAILY [facility] Last Admin: 05/24/16 10:12 Dose: 20 meq CBC, BMP 05/22/16 06:15 05/22/16 06:15 Laboratory Results - last 24 hr 05/24/16 05/24/16 05/25/16 11:36 17:43 05:52 POC Glucometer 231 156 143 Microbiology 05/21/16 11:43 Urine Culture - Final Urine - Urine Clean Catch Escherichia Coli 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 Edema: No ASSESSMENT & PLAN: - Clinically much better. - Resolving pseudo-obstruction. - Rectal tube out. - GI to follow. - Discharge planning. - Likely today if cleared by GI. Problem List - Problems (1) Abdominal distention Code(s): R14.0 - ABDOMINAL DISTENSION (GASEOUS) (2) Adynamic ileus Code(s): K56.0 - PARALYTIC ILEUS (3) CAD (coronary artery disease) Code(s): I25.10 - ATHSCL HEART DISEASE OF [place] CORONARY ARTERY W/O ANG PCTRS Qualifiers: Coronary Disease-Associated Artery/Lesion type: [place] artery [place] vs. transplanted heart: [place] heart Associated angina: without angina Qualified Code(s): I25.10 - Atherosclerotic heart disease of [place] coronary artery without angina pectoris (4) Dementia Code(s): F03.90 - UNSPECIFIED DEMENTIA WITHOUT BEHAVIORAL DISTURBANCE Qualifiers: Dementia type: Alzheimer's disease Alzheimer's disease onset: late- onset Dementia behavioral disturbance: without behavioral disturbance Qualified Code(s): G30.1 - Alzheimer's disease with late onset; F02.81 - Dementia in other diseases classified elsewhere with behavioral disturbance (5) Afib Code(s): I48.91 - UNSPECIFIED ATRIAL FIBRILLATION Qualifiers: Atrial fibrillation type: paroxysmal Qualified Code(s): I48.0 - Paroxysmal atrial fibrillation (6) IDDM (insulin dependent diabetes mellitus) Code(s): E11.9 - TYPE 2 DIABETES MELLITUS WITHOUT COMPLICATIONS 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
[2016-05-25] MEDS: CLOPIDOGREL BISULFATE 75 MG TABLET (FP) PO SCH (10:12)
[2016-05-25] MEDS: CARVEDILOL 3.125 MG TABLET (FP) PO SCH (10:12)
[2016-05-25] MEDS: FUROSEMIDE 40 MG TABLET (FP) PO SCH (10:12)
[2016-05-25] MEDS: ASPIRIN 81 MG CHEWABLE TABLETS PO SCH (10:12)
[2016-05-25] MEDS: POLYETHYLENE GLYCOL 3350 119 GM BTL PO SCH (10:13)
[2016-05-25] MEDS: POTASSIUM CHLORIDE TABS 20 MEQ TABLET.ER (FP) PO SCH (10:13)
[2016-05-25 10:50] VITALS: TEMP 98.2
[2016-05-25] MEDS ORDERED: INSULIN (NOVOLOG) ASPART 100 UNITS/ML 10ML VIAL ONE (11:28)
--- NOTE | 2016-05-25 12:33 | DS ---
Physical Examination Vital Signs: Vital Signs Temperature 98.2 F 05/25/16 09:00 Pulse Rate 60 05/25/16 09:00 Respiratory Rate 18 05/25/16 09:00 Blood Pressure 116/62 05/25/16 09:00 O2 Sat by Pulse Oximetry (%) 97 05/25/16 09:00 Findings/Remarks: see today progress note Labs: CBC, BMP 05/22/16 06:15 05/22/16 06:15 Discharge Summary Reason For Visit: CHF; ABDOMINAL DISTENTION; DEMENTIA Current Active Problems CHF (congestive heart failure) (Acute) Pseudoobstruction of colon (Acute) Hospital Course: admitted for sbo Pt has pseudo obs. Resolved with Rectal tube GI followed pt also has e coli - esbl in urine - being treated with Macrobid Stable for d/c meds updated/ reconciled Need frequent change of positioning. Discussed with nursing staff. Condition: Improved - Instructions Disposition: LONG-TERM FACILITY - Home Medications Comprehensive Discharge Medication List: Ambulatory Orders Aspirin [ASA -] 81 mg PO DAILY 09/19/15 Carvedilol 3.125 mg PO BID 09/19/15 Cholecalciferol (Vitamin D3) [Vitamin D3] 1,000 unit PO DAILY 09/19/15 Clopidogrel Bisulfate [Clopidogrel] 75 mg PO DAILY 09/19/15 Docusate Sodium [Colace -] 300 mg PO HS 09/19/15 Furosemide [Lasix -] 40 mg PO DAILY 09/19/15 Insulin Aspart [Novolog Flexpen] 0 unit SQ ASDIR 09/19/15 Insulin Glargine,Hum.rec.anlog [Lantus Solostar PEN -] 20 units SQ DAILY Levothyroxine [Synthroid -] 100 mcg PO DAILY 09/19/15 Magnesium Hydrox 2400MG/30Ml [Milk of Magnesia -] 30 ml PO Q2D 09/19/15 Multivitamins [Multivit ([facility] Formulary)] 1 tab PO DAILY 09/19/15 Polyethylene Glycol 3350 [Gavilax] 17 gm PO DAILY 09/19/15 Sennosides [Senna] 2 tab PO HS 09/19/15 Potassium Chloride [K-Dur -] 20 meq PO DAILY #30 tablet.er 09/24/15 Lactulose 20 gm PO ASDIR 05/21/16 Nitrofurantoin Macrocrystal [Macrodantin -] 50 mg PO Q6HPO #24 capsule 05/25/16
[2016-05-25 15:01] VITALS: BP 100/60; PULSE 59
== END 2016-05-25 15:58 | DRG 392 ==
LOC: JER 10:40 → JERBED 15:24 → J8W 16:59
PROVIDERS: ADMIT Internal Medicine; ATTEND Internal Medicine
DX: K59.8 Other specified functional intestinal disorders (principal); K56.0 Paralytic ileus; N39.0 Urinary tract infection, site not specified; F03.90 Unspecified dementia, unspecified severity, without behavioral disturbance, psychotic disturbance, mood disturbance, and anxiety; I48.91 Unspecified atrial fibrillation; I35.0 Nonrheumatic aortic (valve) stenosis; Z89.511 Acquired absence of right leg below knee; D64.9 Anemia, unspecified; J44.9 Chronic obstructive pulmonary disease, unspecified; E11.40 Type 2 diabetes mellitus with diabetic neuropathy, unspecified; Z79.4 Long term (current) use of insulin; I25.10 Atherosclerotic heart disease of native coronary artery without angina pectoris; I48.0 Paroxysmal atrial fibrillation; E66.01 Morbid (severe) obesity due to excess calories; Z68.38 Body mass index [BMI] 38.0-38.9, adult; B96.20 Unspecified Escherichia coli [E. coli] as the cause of diseases classified elsewhere
CPT/HCPCS: 36415; 71010-TC; 74000-TC; 74176-TC; 80053; 81003; 81015; 82550; 83690; 83880; 84443; 84484; 85025; 85610; 87086; 87186; 93005; 93010; 99283-25

== ENCOUNTER 2016-10-14 23:26 | Inpatient (IN) | payer OTHER ==
[2016-10-15] MEDS ORDERED: SODIUM CHLORIDE 1,000 ML IV STA (00:26)
--- NOTE | 2016-10-15 00:30 | PDOC ---
History of Present Illness - General History Source: Detention Records Exam Limitations: Dementia - History of Present Illness Initial Comments: 10/15/16 00:39 The patient is a 86 year old female with significant past medical history of [place]'s syndrome, dementia, diabetes, hypertension, congestive heart failure, afib, aortic stenosis, right BKA, anemia, COPD who presents to the ED BIBA from [facility] for abnormal labs. Pt is a DNR as per [place] records. According to [place] notes, patient had her labs drawn on 10/13 and was noted that her BUN increasing , Hgb is 7.6, BNP 97, and creatine 1. Allergies: penicillin, vancomycin, gluten Social History: No alcohol, tobacco, or drug use reported. Past Surgical History: s/p right BKA PCP: Dr. Ebenezer Farris <Jazmine Morales - Last Filed: 10/15/16 02:52> - General History Source: Patient <Ghassan Miranda - Last Filed: 10/15/16 02:54> - General Chief Complaint: Revisit, Lab Variance Stated Complaint: ABNORMAL LABS Time Seen by Provider: 10/14/16 23:50 Past History <Jazmine Morales - Last Filed: 10/15/16 02:52> - Past Medical History Anemia: Yes Cardiac Disorders: Yes (a-fib, chf, aortic valve disorder) COPD: Yes CHF: Yes Dementia: Yes Diabetes: Yes GI Disorders: Yes ([place] Syndrome) Thyroid Disease: Yes (Hypothyroid) - Surgical History Orthopedic Surgery: Yes (RT BKA) - Psycho/Social/Smoking Cessation Hx Anxiety: No Suicidal Ideation: No Smoking History: Never smoked Have you smoked in the past 12 months: No Information on smoking cessation initiated: No Hx Alcohol Use: No Drug/Substance Use Hx: No Substance Use Type: None Hx Substance Use Treatment: No <Ghassan Miranda - Last Filed: 10/15/16 02:54> - Past Medical History Allergies/Adverse Reactions: Allergies Allergy/AdvReac Type Severity Reaction Status Date / Time gluten Allergy Severe Verified 09/24/15 18:33 Penicillins Allergy Verified 09/19/15 17:40 vancomycin Allergy Verified 09/19/15 17:40 Home Medications: Ambulatory Orders Aspirin [ASA -] 81 mg PO DAILY 09/19/15 Carvedilol 3.125 mg PO BID 09/19/15 Cholecalciferol (Vitamin D3) [Vitamin D3] 1,000 unit PO DAILY 09/19/15 Clopidogrel Bisulfate [Clopidogrel] 75 mg PO DAILY 09/19/15 Docusate Sodium [Colace -] 300 mg PO HS 09/19/15 Furosemide [Lasix -] 40 mg PO DAILY 09/19/15 Insulin Aspart [Novolog Flexpen] 0 unit SQ ASDIR 09/19/15 Insulin Glargine,Hum.rec.anlog [Lantus Solostar PEN -] 20 units SQ DAILY Levothyroxine [Synthroid -] 100 mcg PO DAILY 09/19/15 Magnesium Hydrox 2400MG/30Ml [Milk of Magnesia -] 30 ml PO Q2D 09/19/15 Multivitamins [Multivit ([facility] Formulary)] 1 tab PO DAILY 09/19/15 Polyethylene Glycol 3350 [Gavilax] 17 gm PO DAILY 09/19/15 Sennosides [Senna] 2 tab PO HS 09/19/15 Potassium Chloride [K-Dur -] 20 meq PO DAILY #30 tablet.er 09/24/15 Lactulose 20 gm PO ASDIR 05/21/16 Nitrofurantoin Macrocrystal [Macrodantin -] 50 mg PO Q6HPO #24 capsule 05/25/16 Review of Systems - Review of Systems Able to Perform ROS?: No Comments:: 10/15/16 00:39 Unable to obtain due to clinical condition <Jazmine Morales - Last Filed: 10/15/16 02:52> *Physical Exam - Vital Signs Last Vital Signs Temp Pulse Resp BP Pulse Ox 97.6 F 63 14 123/54 100 10/14/16 23:46 10/14/16 23:46 10/14/16 23:46 10/14/16 23:46 10/14/16 23:46 - Physical Exam Comments: 10/15/16 00:39 GENERAL: Groaning. Well developed, well nourished. No acute distress. HEENT: Normocephalic, atraumatic. PERRLA, EOMI. No conjunctival pallor. Sclera are non- icteric. Moist mucous membranes. Oropharynx is clear. NECK: Supple. Full ROM. No JVD. Carotid pulses 2+ and symmetric, without bruits. No thyromegaly. No lymphadenopathy. CARDIOVASCULAR: Regular rate and rhythm. No murmurs, rubs, or gallops. Distal pulses are 2+ and symmetric. PULMONARY: No evidence of respiratory distress. Lungs clear to auscultation bilaterally. No wheezing, rales or rhonchi. ABDOMINAL: Soft. Moderately distended. No rebound or guarding. Normoactive bowel sounds. MUSCULOSKELETAL Normal range of motion at all joints. No bony deformities. EXTREMITIES: Right BKA. No cyanosis. No clubbing. No edema.. SKIN: Warm and dry. Normal capillary refill. No rashes. No jaundice. NEUROLOGICAL: Pt has dementia as per baseline <Jazmine Morales - Last Filed: 10/15/16 02:52> - Vital Signs Last Vital Signs Temp Pulse Resp BP Pulse Ox 97.6 F 63 14 123/54 100 10/14/16 23:46 10/14/16 23:46 10/14/16 23:46 10/14/16 23:46 10/14/16 23:46 <Ghassan Miranda - Last Filed: 10/15/16 02:54> Heart Score/ECG Review - ECG Impressions Comment:: 10/15/16 00:45 Sinus rhythm with premature atrial complexes @62bpm LBBB Abnormal ECG <Jazmine Morales - Last Filed: 10/15/16 02:52> ED Treatment Course - LABORATORY CBC & Chemistry Diagram: 10/15/16 00:40 10/15/16 00:40 - RADIOLOGY Radiograph Interpretation: 10/15/16 02:18 EXAM: CT abdomen and pelvis without contrast Reviewed by Imaging tongue carrier: FINDINGS: Lung bases are clear. The visualized cardiac chambers are normal size and configuration. No change in small pericardial effusion. No change in 15 mm splenic hypodensity, likely a solid lesion which can be followed up with CT or MRI. Gallbladder sludge is noted without pericholecystic inflammation. Normal unenhanced liver, pancreas, adrenal glands and kidneys. There is no change in diffuse severe colonic distention, with air and liquid stool with the sigmoid colon measuring up to 12.1 cm. This extends to the distal rectum is suspicious for toxic megacolon. Patient is at risk for bowel perforation. No pneumatosis or free air. There is no aortic aneurysm. There is no significant retroperitoneal lymphadenopathy. There is no evidence of appendicitis although the appendix is not clearly visualized. The uterus is atrophic or removed. Urinary bladder is unremarkable. There is no pelvic free fluid. No discrete pelvic lymphadenopathy is identified. IMPRESSION: Persistent or repeat massive colonic distention suspicious for toxic megacolon, placing the patient at risk for bowel perforation. No change small pericardial effusion. No change in probable small solid slightly atypical for urgent CT or MRI as clinically indicated. <Jazmine Morales - Last Filed: 10/15/16 02:52> - LABORATORY CBC & Chemistry Diagram: 10/15/16 00:40 10/15/16 00:40 - RADIOLOGY Radiology Studies Ordered: Category Date Time Status CHEST X-RAY PORTABLE* [RAD] Stat Radiology 10/15/16 00:26 Ordered <Ghassan Miranda - Last Filed: 10/15/16 02:54> Medical Decision Making - Medical Decision Making 10/15/16 02:[address] Marianna Franks (via answering service) Awaiting call back 10/15/16 02:48 Second call placed to Dr. Franks (via answering service) Awaiting call back 10/15/16 02:51 Patient's case discussed with Dr. Franks <Jazmine Morales - Last Filed: 10/15/16 02:52> - Medical Decision Making 10/15/16 02:21 Dr. Miranda: The scribe's documentation has been prepared under my direction and personally reviewed by me in its entirery. I confirm that the note above accurately reflects all work, treatment, procedures, and medical decision making performed by me. <Ghassan Miranda - Last Filed: 10/15/16 02:54> *DC/Admit/Observation/Transfer - Attestations Scribe Attestion: 10/15/16 00:40 Documentation prepared by Jazmine Morales, acting as medical pathology teacher for Ghassan Miranda MD/. <Jazmine Morales - Last Filed: 10/15/16 02:52> - Discharge Dispostion Admit: Yes <Ghassan Miranda - Last Filed: 10/15/16 02:54> Diagnosis at time of Disposition: Toxic megacolon Anemia Qualifiers: Anemia type: unspecified type Qualified Code(s): D64.9 - Anemia, unspecified - Discharge Dispostion Condition at time of disposition: Stable - Referrals Referrals: Ebenezer Farris MD [Primary Care Provider] -
[2016-10-15 00:50] LABS: MCH 31.3 pg (25.7-33.7); MCHC 32.1 g/dl (32.0-36.0); MEAN CELL VOLUME 97.4 fl (80-96); MEAN PLT VOLUME 10.3 fl (7.5-11.1); PLATELET COUNT 204 K/MM3 (134-434); RDW 13.6 % (11.6-15.6)
[2016-10-15 01:53] LABS: ACETONE SERUM NEGATIVE (NEGATIVE)
[2016-10-15 01:59] LABS: ALBUMIN 2.8 g/dl (3.4-5.0); ANION GAP 10 (8-16); BILIRUBIN,TOTAL 0.2 mg/dL (0.2-1.0); CALCIUM 8.4 mg/dL (8.5-10.1); CO2 28 mmol/L (21-32); CREATININE 0.9 mg/dL (0.55-1.02); GLUCOSE,RANDOM 138 mg/dL (74-106); MAGNESIUM 2.2 mg/dL (1.8-2.4); SGOT/AST 11 U/L (15-37); SGPT/ALT 13 U/L (12-78); TOT PROT 5.6 g/dl (6.4-8.2)
[2016-10-15 02:14] LABS: ALK PHOS 79 U/L (45-117)
[2016-10-15 02:16] LABS: TROPONIN I 1.49 ng/ml (0.00-0.05)
[2016-10-15 02:33] LABS: PLATELET ESTIMATE ADEQUATE (NORMAL)
[2016-10-15] MEDS ORDERED: DEXTROSE 5%-0.45% SALINE 1,000 ML IV SCH (03:00)
[2016-10-15 07:52] VITALS: BMI 37.3
--- NOTE | 2016-10-15 10:26 | HP ---
Admitting History and Physical - Primary Care Physician PCP: Ebenezer Farris - Admission Chief Complaint: anemia History of Present Illness: ER history - History of Present Illness Initial Comments: 10/15/16 00:39 The patient is a 86 year old female with significant past medical history of [place]'s syndrome, dementia, diabetes, hypertension, congestive heart failure, afib, aortic stenosis, right BKA, anemia, COPD who presents to the ED BIBA from [facility] for abnormal labs. Pt is a DNR as per [place] records. According to [place] notes, patient had her labs drawn on 10/13 and was noted that her BUN increasing , Hgb is 7.6, BNP 97, and creatine 1. Allergies: penicillin, vancomycin, gluten Social History: No alcohol, tobacco, or drug use reported. Past Surgical History: s/p right BKA PCP: Dr. Ebenezer Farris Pt examined by me on the floors Spoke with GI and Cardiology Pt decompressed by GI, no distress No SOB , chest pain , abdominal pain Spoke with her PMD at [place]- Dr Garzon-- in [place] , nurses turn her and roll her constantly to decompress her. She never c/o pain . 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) Endocrine: Yes: Diabetes Mellitus - Advance Directives Advance Directives: Yes: DNR - Smoking History Smoking history: Never smoked Have you smoked in the past 12 months: No - Alcohol/Substance Use Hx Alcohol Use: No - Social History ADL: Support Services History of Recent Travel: No Home Medications - Allergies Allergies/Adverse Reactions: Allergies Allergy/AdvReac Type Severity Reaction Status Date / Time gluten Allergy Severe Verified 09/24/15 18:33 Penicillins Allergy Verified 09/19/15 17:40 vancomycin Allergy Verified 09/19/15 17:40 - Home Medications Home Medications: Ambulatory Orders Aspirin [ASA -] 81 mg PO DAILY 09/19/15 Carvedilol 3.125 mg PO BID 09/19/15 Cholecalciferol (Vitamin D3) [Vitamin D3] 1,000 unit PO DAILY 09/19/15 Clopidogrel Bisulfate [Clopidogrel] 75 mg PO DAILY 09/19/15 Docusate Sodium [Colace -] 300 mg PO HS 09/19/15 Furosemide [Lasix -] 40 mg PO DAILY 09/19/15 Insulin Aspart [Novolog Flexpen] 0 unit SQ ASDIR 09/19/15 Insulin Glargine,Hum.rec.anlog [Lantus Solostar PEN -] 20 units SQ DAILY Levothyroxine [Synthroid -] 100 mcg PO DAILY 09/19/15 Magnesium Hydrox 2400MG/30Ml [Milk of Magnesia -] 30 ml PO Q2D 09/19/15 Multivitamins [Multivit ([facility] Formulary)] 1 tab PO DAILY 09/19/15 Polyethylene Glycol 3350 [Gavilax] 17 gm PO DAILY 09/19/15 Sennosides [Senna] 2 tab PO HS 09/19/15 Potassium Chloride [K-Dur -] 20 meq PO DAILY #30 tablet.er 09/24/15 Lactulose 20 gm PO ASDIR 05/21/16 Nitrofurantoin Macrocrystal [Macrodantin -] 50 mg PO Q6HPO #24 capsule 05/25/16 Review of Systems - Review of Systems Constitutional: denies: Chills, Fever, Unintentional Wgt. Loss Cardiovascular: denies: Chest Pain, Edema, Palpitations, Shortness of Breath Respiratory: denies: SOB Gastrointestinal: denies: Abdominal Pain, Constipation, Rectal Bleeding Physical Examination Vital Signs: Vital Signs Temperature 97.5 F L 10/15/16 07:35 Pulse Rate 72 10/15/16 07:35 Respiratory Rate 18 10/15/16 07:35 Blood Pressure 142/63 10/15/16 07:35 O2 Sat by Pulse Oximetry (%) 96 10/15/16 07:35 Constitutional: Yes: No Distress, Calm Cardiovascular: Yes: Regular Rate and Rhythm Respiratory: Yes: Diminished, Rhonchi Gastrointestinal: Yes: Normal Bowel Sounds, Soft, Abdomen, Obese, Distention. No: Tenderness Edema: No Imaging - Results Cat Scan: Report Reviewed EKG: Image Reviewed (sinus, LBBB) Problem List - Problems (1) Anemia Code(s): D64.9 - ANEMIA, UNSPECIFIED Qualifiers: Anemia type: unspecified type Qualified Code(s): D64.9 - Anemia, unspecified (2) Abdominal distention Code(s): R14.0 - ABDOMINAL DISTENSION (GASEOUS) (3) Adynamic ileus Code(s): K56.0 - PARALYTIC ILEUS (4) Afib Code(s): I48.91 - UNSPECIFIED ATRIAL FIBRILLATION Qualifiers: Atrial fibrillation type: paroxysmal Qualified Code(s): I48.0 - Paroxysmal atrial fibrillation (5) CAD (coronary artery disease) Code(s): I25.10 - ATHSCL HEART DISEASE OF [place] CORONARY ARTERY W/O ANG PCTRS Qualifiers: Coronary Disease-Associated Artery/Lesion type: [place] artery [place] vs. transplanted heart: [place] heart Associated angina: without angina Qualified Code(s): I25.10 - Atherosclerotic heart disease of [place] coronary artery without angina pectoris (6) CHF (congestive heart failure) Code(s): I50.9 - HEART FAILURE, UNSPECIFIED Qualifiers: Congestive heart failure type: diastolic Congestive heart failure chronicity: chronic Qualified Code(s): I50.32 - Chronic diastolic ( congestive) heart failure (7) NSTEMI (non-ST elevated myocardial infarction) Code(s): I21.4 - NON-ST ELEVATION (NSTEMI) MYOCARDIAL INFARCTION Assessment/Plan PLAN Transfuse two units total and check CBC afterwards Check second set cardiac enzyme Cardiology eval Will order Echo Pt does not wish for colectomy- had previous conversations with her check stool guaic Protonix clear liquids hold off ASA and Plavix-- spoke with Dr garzon, she was on this for h/o NSTEMI that occurred many years ago . No known h/o stent placement. VTE-- SCD for left leg , Rt BKA Time spent 30 min
[2016-10-15] MEDS ORDERED: PANTOPRAZOLE SODIUM 40 MG in SODIUM CHLORIDE 100 ML IVPB ONE (10:28)
[2016-10-15] MEDS ORDERED: FUROSEMIDE 40 MG/4 ML INJECTABLE VIAL IVPB ONE (10:35)
--- NOTE | 2016-10-15 10:54 | PN ---
Progress Note (short form) - Note Progress Note: Consult dictated: 1. Anemia: Guaiac + on exam maintained on dual antiplatelet therapy. elevated BUN out of proportion to Cr. ? UGIB. Discused with her daughter. Discussed upper endoscopy to exclude upper GI pathology such as PUD once cleared by cardiology. Discussed risks/benefits. She would like to discuss things with her family. Hold Antiplatelets for now. Clear liquids, Protonix, cardio evaluation, echo, cardiac profile ordered, repeat EKG performed. ? lateral ischemia ? need for continued dial antiplateley therapy as an outpatient Should be maintained on GI prophylaxis as an outpatient 2. 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
--- NOTE | 2016-10-15 11:04 | EKG ---
Test Reason : Blood Pressure : / mmHG Vent. Rate : 077 BPM Atrial Rate : 077 BPM P-R Int : 192 ms QRS Dur : 110 ms QT Int : 414 ms P-R-T Axes : 075 -17 102 degrees QTc Int : 468 ms SINUS RHYTHM WITH OCCASIONAL PREMATURE VENTRICULAR COMPLEXES LOW VOLTAGE QRS LEFT BUNDLE BRANCH BLOCK ABNORMAL ECG Confirmed by LILY BARTON, RALU ([id number]) on 10/15/2016 11:04:21 AM Referred By: LEISA FRANK Confirmed By:RAUL BAUTISTA MD
--- NOTE | 2016-10-15 11:08 | EKG ---
Test Reason : Blood Pressure : / mmHG Vent. Rate : 062 BPM Atrial Rate : 062 BPM P-R Int : 172 ms QRS Dur : 146 ms QT Int : 452 ms P-R-T Axes : 088 -11 110 degrees QTc Int : 458 ms SINUS RHYTHM WITH PREMATURE ATRIAL COMPLEXES LEFT BUNDLE BRANCH BLOCK ABNORMAL ECG WHEN COMPARED WITH ECG OF 21-MAY-2016 11:44, PREMATURE VENTRICULAR COMPLEXES ARE NO LONGER PRESENT PREMATURE ATRIAL COMPLEXES ARE NOW PRESENT CRITERIA FOR INFERIOR INFARCT ARE NO LONGER PRESENT Confirmed by RAUL BAUTISTA MD ([id number]) on 10/15/2016 11:07:53 AM Referred By: Confirmed By:RAUL BAUTISTA MD
--- NOTE | 2016-10-15 11:14 | CON.CARD ---
Consult Consult Specialty:: Cardiology Referred by:: Dr. Ochoa/Dr. Ramos Reason for Consultation:: NSTEMI - History of Present Illness Chief Complaint: Anemia History of Present Illness: 86 year old woman with a history of HTN, HLD, DMII, PAD h/o RLE amputation, CAD with h/o reported NSTEMI years ago in [place] that was treated medically, h /o Pafib not on full AC, h/o mild aortic stenosis, chronic colonic pseudoobstruction, admitted for severe anemia and elevated BUN, incidentally noted to have an elevated troponin level. Pt. was seen and examined today in [facility]. currently receiving [facility]'s. She denies any current complaints. No chest pain, sob, palpitations, pnd, orthopnea, or LE edema. 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 morbid obesity - Alcohol/Substance Use Hx Alcohol Use: No - Smoking History Smoking history: Never smoked Have you smoked in the past 12 months: No - Social History Usual Living Arrangement: Retirement ADL: Support Services History of Recent Travel: No Home Medications - Allergies Allergies/Adverse Reactions: Allergies Allergy/AdvReac Type Severity Reaction Status Date / Time gluten Allergy Severe Verified 09/24/15 18:33 Penicillins Allergy Verified 09/19/15 17:40 vancomycin Allergy Verified 09/19/15 17:40 - Home Medications Home Medications: Ambulatory Orders Aspirin [ASA -] 81 mg PO DAILY 09/19/15 Carvedilol 3.125 mg PO BID 09/19/15 Cholecalciferol (Vitamin D3) [Vitamin D3] 1,000 unit PO DAILY 09/19/15 Clopidogrel Bisulfate [Clopidogrel] 75 mg PO DAILY 09/19/15 Docusate Sodium [Colace -] 300 mg PO HS 09/19/15 Furosemide [Lasix -] 40 mg PO DAILY 09/19/15 Insulin Aspart [Novolog Flexpen] 0 unit SQ ASDIR 09/19/15 Insulin Glargine,Hum.rec.anlog [Lantus Solostar PEN -] 20 units SQ DAILY Levothyroxine [Synthroid -] 100 mcg PO DAILY 09/19/15 Magnesium Hydrox 2400MG/30Ml [Milk of Magnesia -] 30 ml PO Q2D 09/19/15 Multivitamins [Multivit ([facility] Formulary)] 1 tab PO DAILY 09/19/15 Polyethylene Glycol 3350 [Gavilax] 17 gm PO DAILY 09/19/15 Sennosides [Senna] 2 tab PO HS 09/19/15 Potassium Chloride [K-Dur -] 20 meq PO DAILY #30 tablet.er 09/24/15 Lactulose 20 gm PO ASDIR 05/21/16 Nitrofurantoin Macrocrystal [Macrodantin -] 50 mg PO Q6HPO #24 capsule 05/25/16 Family Disease History - Family Disease History Family History: Denies Review of Systems - Review of Systems Constitutional: reports: Malaise, Weakness. denies: No Symptoms, Chills, Diaphoresis, Fever, Lethargy, Loss of Appetite, Night Sweats, Unintentional Wgt. Loss, Other Eyes: denies: No Symptoms, Blind Spots, Blurred Vision, Double Vision, Eye Pain , Floaters, Photophobia, Recent Change in Vision, Other HENT: denies: No Symptoms, Difficult Swallowing, Ear Discharge, Ear Pain, Epistaxis, Gingival Bleeding, Hearing Loss, Mouth Swelling, Nasal Congestion, Ocular Prosthesis, Throat Pain, Toothache, Ringing in Ears, Other Neck: denies: No Symptoms, Decreased ROM, Lumps, Pain on Movement, Stiffness, Swollen Glands, Tenderness, Other Cardiovascular: denies: No Symptoms, Chest Pain, Edema, Palpitations, Shortness of Breath, Other Respiratory: denies: No Symptoms, Cough, Exercise Intolerance, Hemoptysis, Orthopnea, PND, Snoring, SOB, SOB on Exertion, Wheezing, Other Gastrointestinal: reports: Bloating. denies: No Symptoms, Abdominal Pain, Constipation, Diarrhea, Dysphagia, Indigestion, Melena, Nausea, Rectal Bleeding , Vomiting, Vomiting Blood, Other Genitourinary: denies: No Symptoms, Burning, Discharge, Dysuria, Flank Pain, Frequency, Hematuria, Incontinence, Lesions, Menses, Pain, Testicular Mass, Testicular Pain, Testicular Swelling, Urgency, Vaginal Bleeding, Other Breasts: denies: No Symptoms Reported, See HPI, Breast Implants, Discharge from Nipple, Lumps, Pain, Skin Changes, Other Musculoskeletal: denies: No Symptoms, Back Pain, Crepitus, Decreased ROM, Extremity Pain, Joint Pain, Joint Swelling, Muscle Pain, Muscle Cramps, Muscle Weakness, Other Integumentary: denies: No Symptoms, Blister, Bruising, Change in Color, Eczema, Erythema, Incision, Lesions, Lump, Pallor, Pruritis, Rash, Wound, Other Neurological: denies: No Symptoms, Change in LOC, Change in Speech, Confusion, Dizziness, Headache, Incoordination, Numbness, Parasthesia, Pre-Existing Deficit , Seizure, Syncope, Tremors, Unsteady Gait, Weakness, Other Endocrine: denies: No Symptoms, Excessive Sweating, Flushing, Increased Hunger, Increased Thirst, Intolerance to Cold, Intolerance to Heat, Unexplained Weight Gain, Unexplained Weight Loss, Other Hematology/Lymphatic: denies: No Symptoms, Easily Bruised, Excessive Bleeding, Swollen Glands, Other Psychiatric: denies: No Symptoms, Altered Sleep Pattern, Anxiety, Depression, Hallucinations, Panic, Paranoia, Suicidal, Other - Risk Factors Known Risk Factors: Yes: Age, Hypercholesterolemia, Hypertension, Prior ME /Emb Stroke Vital Signs: Vital Signs Temperature 97.5 F L 10/15/16 07:35 Pulse Rate 72 10/15/16 07:35 Respiratory Rate 18 10/15/16 07:35 Blood Pressure 142/63 10/15/16 07:35 O2 Sat by Pulse Oximetry (%) 96 10/15/16 07:35 Constitutional: Yes: No Distress, Calm, Obese Eyes: Yes: WNL, Conjunctiva Clear, EOM Intact, PERRL HENT: Yes: WNL, Atraumatic, Normocephalic Neck: Yes: WNL, Supple, Trachea Midline Respiratory: Yes: WNL, Regular, CTA Bilaterally. No: Rales, Rhonchi, Wheezes Gastrointestinal: Yes: Normal Bowel Sounds, Distention. No: Tenderness Renal/: Yes: WNL Cardiovascular: Yes: Regular Rate and Rhythm. No: Bradycardia, Tachycardia, Pulse Irregular, Gallop, Rub, Varicosities JVD: No Carotid Bruit: No PMI: Non-Displaced Heart Sounds: Yes: S1, S2. No: Split S2, S3, S4, Clicks, Gallop, Rub, Bruit Murmur: Yes: Systolic Murmur. No: Diastolic Murmur Musculoskeletal: Yes: Muscle Weakness Extremities: Yes: WNL Edema: No Peripheral Pulses WNL: Yes Peripheral Pulses: 2+ Left Doralis Pedis, 2+ Right Dorsalis Pedis Integumentary: Yes: WNL Neurological: Yes: Alert, Oriented Psychiatric: Yes: Alert, Oriented - Other Data Labs, Other Data: INR, PTT INR 1.00 (0.82-1.09) 10/15/16 00:40 ekg-nsr 77bpm, incomplete LBBB, PVC, st depression V5, V6, I aVL, possible lateral ischemia Echo: Report Reviewed Imaging - Results Chest X-ray: Report Reviewed, Image Reviewed EKG: Report Reviewed, Image Reviewed Other: Report Reviewed, Image Reviewed Assessment/Plan 86 year old woman with a history of HTN, HLD, DMII, PAD h/o RLE amputation, CAD with h/o reported NSTEMI [place] ago in [place] that was treated medically, h /o Pafib not on full AC, h/o mild aortic stenosis, chronic colonic pseudoobstruction, admitted for severe anemia and elevated BUN, incidentally noted to have an elevated troponin level. Elevated troponin-NSTEMI likely type II ME, possible lateral ischemia on ekg, pt is asymptomatic -pt likely has underlying CAD given h/o NSTEMI treated medically in the past, presume her current elevated troponin with normal ck and mild ekg abnormalities is secondary to demand ischemia secondary to anemia -troponin trended down today -transfer to telemetry for observation -check echo to evaluate LV function -serial ekgs -d/w pt and her daughter, given pts overall condition, including advanced age, multiple co-morbidities, GI bleed, they would prefer to avoid invasive procedures for further evaluation of CAD -agree that it is likely best to proceed with conservative measures./medical management of CAD -hold ASA and plavix in setting of GI bleed, plan to resume ASA alone when safe to do so -cont Coreg -start statin if no contraindication Preop for endoscopy -given pts underlying CAD pt would be at least an intermediate to high risk for procedures -would not recc cardiac cath in this patient given gi bleed and anemia and she will be unlikely to tolerate the required dual anti-platelet therapy if a stent is placed -stress testing could be considered for further risk stratification before endoscopy but this would be unlikely to change coordinator as cardiac cath is not planned -would recc to follow with pt and family regarding their wishes for procedures and if they wish to pursue endoscopy would either proceed with knowledge of her risk or will consider stress testing preop further Aortic stenosis-mild to moderate in the past, exam more c/w moderate currently -f/up echo results today Pafib -NSR on admission -monitor on tele
--- NOTE | 2016-10-15 11:31 | CONS ---
GASTROENTEROLOGY CONSULTATION DATE OF CONSULTATION: 10/15/2016 REQUESTING PHYSICIAN: Katelin Ochoa MD The patient is an 86-year-old woman sent from the [facility] for evaluation of abdominal distention and anemia. She has a history of chronic colonic pseudo-obstruction, and she gets admitted multiple times for decompression of her colon via a rectal tube. Her daughter has, on multiple occasions, refused surgical option as part of treatment for this, and the patient has refused repeat colonoscopy. It is unclear if she has ever had a colonoscopy, but she has remotely had a colonoscopy; no cancer was detected at that time. It appears as though she was last admitted in September 2015, last evaluated by GI in May 2016. At that time, she was evaluated by Dr. Sam Sullivan for abdominal distention, and rectal tube had been placed with decompression. There has been no gross overt bleeding noted. Hemoglobin on admission was 6.8. She is being transfused 2 units of red blood cells and completed her first unit. She denies any abdominal pain or chest pain. Of note, troponins as well. PAST MEDICAL HISTORY: Includes diabetes mellitus, type 1; CHF; atrial fibrillation; aortic stenosis; status post right BKA; anemia; history of COPD (she is apparently on BiPAP at night per previous chart); dementia; history of chronic colon pseudo-obstruction. PAST SURGICAL HISTORY: Includes right BKA, and as above, her daughter believes that her mother also had a colonoscopy that was unremarkable in the past. SOCIAL HISTORY: She is a snf resident. No history of EtOH, tobacco, intravenous drug abuse, or illicit drugs. She was born in [facility]. ALLERGIES: She has a GLUTEN allergy as well as PENICILLIN and VANCOMYCIN per the chart. MEDICATIONS PRIOR TO ADMISSION: Include aspirin, Plavix, MiraLAX, Lantus, senna, Colace, lactulose, Lasix, and magnesium hydroxide. REVIEW OF SYSTEMS: She currently denies any chest pain. No shortness of breath. There has been no reported overt rectal bleeding or melena. PHYSICAL EXAMINATION: General: Patient is found lying comfortably in her hospital bed. She appeared to be in no apparent distress. Vital Signs: Temperature was 97.5, pulse 72, blood pressure 142/63. Eyes: Sclerae are anicteric. Neck: Supple. Heart: Regular rate and rhythm. She did have a 2/6 systolic ejection murmur heard best at the right sternal border. Lungs: Examination of the lungs revealed decreased breath sounds at the bases bilaterally. Abdomen: The abdomen was protuberant, and there were tympani. She had normoactive bowel sounds that were higher pitched. The abdomen was soft, and there was no tenderness elicited. Extremities: Examination of the lower extremities revealed a right BKA. Digital Rectal Examination: There was dark-brown stool in the rectal vault, which was trace guaiac positive. A rectal tube was inserted. It was flushed, and a significant amount of flatus was expelled through the tube with improvement of the abdominal distention. The patient was turned on her right side when I performed this. Then, she was turned on her left side with more flatus expelled via the rectal tube as well. LABORATORY EVALUATION: White blood count 11, hemoglobin 6.8, hematocrit 21.2, platelets of 204. INR of 1.00. Sodium 141, potassium 3.7, chloride 103, bicarbonate 28, BUN of 65, creatinine 0.9, glucose of 138. AST of 11, ALT of 13, alkaline phosphatase of 79, total bilirubin of 0.2, with an albumin of 2.8. Troponins of 1.49. Echocardiogram from July 2015, revealed normal size left ventricle, normal systolic LV function. No aortic regurgitation was noted, and there was mild aortic sclerosis. IMPRESSION: This is an 86-year-old, multiple medical problems on dual antiplatelet therapy with 2 current issues. One is her anemia which, in review of the [facility], is new from May 2016. Hemoglobin was 11.7. At least, in review of her home medication list provided, it does not appear that she is on gastrointestinal prophylaxis. I called the patient's daughter and discussed possible sources of bleeding such as peptic ulcer disease, bleeding blood vessels of the upper intestinal tract and explained upper endoscopy could be performed for further evaluation if they were willing to allow her mother to undergo this and if the patient herself was willing to undergo the procedure. Her daughter did ask the risks of the procedure, and I explained that there were risks like, but not limited to, bleeding, perforation requiring surgery to repair, infection, and sedation medication effects; all of which could be potentially life threatening. I also did explain that it appears as though there may have been some injury to the heart, possibly from the anemia. However, a factory worker will be evaluating her. She stated that she would like the factory worker to evaluate her and then make a decision with her family regarding the possibility of an upper endoscopy. I have started the patient on Protonix 40 mg p.o. b.i.d. for now, first dose to be given now and would maintain her n.p.o. except medications. I did explain that if they did want her mother to proceed with upper endoscopy and it was unrevealing, then the possibility of performing colonoscopy would then arise and that this should be discussed with her family as well. She stated that she would do so. She has finished her first unit of packed red blood cells and is to receive her second unit. Her hemoglobin and hematocrit are being monitored, and given the elevation of troponins, I advised her nurse to transfer her to a monitored setting, obtain a cardiology consultation. I ordered an echocardiogram and repeat EKG, and repeat troponins have been ordered as well. Her second issue is her chronic colonic pseudo-obstruction that is a persistent problem. She seems to decompress well with rectal tube decompression, and this can be performed at the snf as well if feasible. If not, then the possibility of a more definitive therapy would need to be considered from a surgical standpoint. This has been discussed in the past and will need to be discussed again with the patient's family. She has decompressed well with rectal tube and monitor clinically. Other recommendation pending the patient's clinical course. I thank you for this consultative opportunity. JANA FRANK DO [id number]
[2016-10-15 11:45] LABS: TROPONIN I 0.9 ng/ml (0.00-0.05)
[2016-10-15] MEDS: FUROSEMIDE 40 MG TABLET (FP) PO SCH (12:57)
[2016-10-15] MEDS: LEVOTHYROXINE NA 100 MCG TABLET (FP) PO SCH (12:57)
[2016-10-15] MEDS: CARVEDILOL 3.125 MG TABLET (FP) PO SCH ×2 (12:57→21:00)
[2016-10-15] MEDS: PANTOPRAZOLE 40 MG TABLET (FP) PO SCH ×2 (12:57→21:00)
[2016-10-15] MEDS: ALBUTEROL SO4 0.083% IH SOL 2.5 MG/3 ML VIAL.NEB. NEB PRN ×2 (13:20→21:05)
[2016-10-15] MEDS ORDERED: FUROSEMIDE 40 MG/4 ML INJECTABLE VIAL ONE (14:55)
[2016-10-15 16:43] LABS: MCHC 33.8 g/dl (32.0-36.0); MEAN CELL VOLUME 91.6 fl (80-96); MEAN PLT VOLUME 10.3 fl (7.5-11.1); PLATELET COUNT 202 K/MM3 (134-434); RDW 16.4 % (11.6-15.6); WHITE BLOOD COUNT 10.8 K/mm3 (4.0-10.0)
[2016-10-15] MEDS: ATORVASTATIN CA 40 MG TABLET (FP) PO SCH (21:00)
[2016-10-16] MEDS: LEVOTHYROXINE NA 100 MCG TABLET (FP) PO SCH (06:20)
[2016-10-16 06:45] LABS: BASOPHIL 0.7 % (0-2.0); MCH 31.6 pg (25.7-33.7); MCHC 34.9 g/dl (32.0-36.0); MEAN CELL VOLUME 90.6 fl (80-96); MEAN PLT VOLUME 9.9 fl (7.5-11.1); NEUTROPHILS 68.8 % (42.8-82.8); PLATELET COUNT 217 K/MM3 (134-434); RDW 16.5 % (11.6-15.6); WHITE BLOOD COUNT 10.6 K/mm3 (4.0-10.0)
[2016-10-16 07:47] LABS: ANION GAP 10 (8-16); CALCIUM 8.5 mg/dL (8.5-10.1); CO2 32 mmol/L (21-32); CREATININE 0.8 mg/dL (0.55-1.02); GLUCOSE,RANDOM 140 mg/dL (74-106)
--- NOTE | 2016-10-16 07:55 | PN ---
Progress Note (short form) - Note Progress Note: SUBJECTIVE: Patient seen and examined. Chart reviewed. Comfortable. Denies pain. OBJECTIVE: Vital Signs 10/16/16 10/16/16 02:00 06:00 Temperature 97.6 F 97.9 F Pulse Rate 66 73 Respiratory 20 18 Rate Blood Pressure 111/65 120/68 Intake & Output 10/15/16 10/16/16 10/16/16 23:59 07:59 15:59 Intake Total 10 Balance 10 Intake: IV 10 RH 20 10/15/2016 10 Other: Voiding Method Incontinent # Unmeasured Voids Void 3 2 Bowel Movement No Active Medications Albuterol Sulfate (Ventolin 0.083% Nebulizer Soln -) 1 amp NEB Q4H PRN PRN Reason: SHORT OF BREATH/WHEEZING Last Admin: 10/15/16 21:05 Dose: 1 amp Atorvastatin Calcium (Lipitor -) 40 mg PO HS [facility] Last Admin: 10/15/16 21:00 Dose: 40 mg Carvedilol (Coreg -) 3.125 mg PO BID [facility] Last Admin: 10/16/16 09:04 Dose: 3.125 mg Furosemide (Lasix -) 40 mg PO DAILY [facility] Last Admin: 10/16/16 09:04 Dose: 40 mg Levothyroxine Sodium (Synthroid -) 100 mcg PO DAILY@0700 [facility] Last Admin: 10/16/16 06:20 Dose: 100 mcg Pantoprazole Sodium (Protonix -) 40 mg PO BID [facility] Last Admin: 10/16/16 09:04 Dose: 40 mg CBC, BMP 10/16/16 05:58 10/16/16 05:58 Laboratory Results - last 24 hr 10/15/16 10/15/16 10/15/16 00:40 10:45 15:20 WBC 10.8 H RBC 3.28 L D Hgb 10.2 L D Hct 30.0 L D MCV 91.6 MCHC 33.8 RDW 16.4 H D Plt Count 202 MPV 10.3 Neutrophils % Lymphocytes % Monocytes % Eosinophils % Basophils % Sodium Potassium Chloride Carbon Dioxide Anion Gap BUN Creatinine Random Glucose Calcium Creatine Kinase 55 Troponin I 0.90 H* Blood Type AB POSITIVE Antibody Screen Negative Crossmatch See Detail 10/16/16 10/16/16 05:58 05:58 WBC 10.6 H RBC 3.45 L Hgb 10.9 Hct 31.2 L MCV 90.6 MCHC 34.9 RDW 16.5 H Plt Count 217 MPV 9.9 Neutrophils % 68.8 Lymphocytes % 20.6 D Monocytes % 6.9 Eosinophils % 3.0 Basophils % 0.7 Sodium 143 Potassium 3.6 Chloride 101 Carbon Dioxide 32 Anion Gap 10 BUN 38 H D Creatinine 0.8 Random Glucose 140 H Calcium 8.5 Creatine Kinase Troponin I Blood Type Antibody Screen Crossmatch Microbiology 10/15/16 00:40 Blood Culture - Preliminary Blood - Peripheral Venous NO GROWTH OBTAINED AFTER 24 HOURS, INCUBATION TO CONTINUE FOR 4 DAYS. 10/15/16 00:40 Blood Culture - Preliminary Blood - Peripheral Venous NO GROWTH OBTAINED AFTER 24 HOURS, INCUBATION TO CONTINUE FOR 4 DAYS. PHYSICAL EXAMINATION: Constitutional: Yes: No Distress, Calm Cardiovascular: Yes: Regular Rate and Rhythm Respiratory: Yes: Diminished at bases. Gastrointestinal: Yes: Normal Bowel Sounds, Soft, Abdomen, Obese, Distention. No: Tenderness Edema: No Problem List - Problems (1) Anemia Code(s): D64.9 - ANEMIA, UNSPECIFIED Qualifiers: Anemia type: unspecified type Qualified Code(s): D64.9 - Anemia, unspecified (2) Abdominal distention Code(s): R14.0 - ABDOMINAL DISTENSION (GASEOUS) (3) Adynamic ileus Code(s): K56.0 - PARALYTIC ILEUS (4) Afib Code(s): I48.91 - UNSPECIFIED ATRIAL FIBRILLATION Qualifiers: Atrial fibrillation type: paroxysmal Qualified Code(s): I48.0 - Paroxysmal atrial fibrillation (5) CAD (coronary artery disease) Code(s): I25.10 - ATHSCL HEART DISEASE OF [place] CORONARY ARTERY W/O ANG PCTRS Qualifiers: Coronary Disease-Associated Artery/Lesion type: [place] artery [place] vs. transplanted heart: [place] heart Associated angina: without angina Qualified Code(s): I25.10 - Atherosclerotic heart disease of [place] coronary artery without angina pectoris (6) CHF (congestive heart failure) Code(s): I50.9 - HEART FAILURE, UNSPECIFIED Qualifiers: Congestive heart failure type: diastolic Congestive heart failure chronicity: chronic Qualified Code(s): I50.32 - Chronic diastolic ( congestive) heart failure (7) NSTEMI (non-ST elevated myocardial infarction) Code(s): I21.4 - NON-ST ELEVATION (NSTEMI) MYOCARDIAL INFARCTION ASSESSMENT & PLAN: - Stable. - H/H stable. - No bleeding noted. - Monitor CBC. - Continue other medications. - No GI procedure planned for this time. - Echocardiogram noted. - If stable, [facility]. Documentation prepared by Belen Snell, acting as a director medical science for Marianna Franks MD.
[2016-10-16] MEDS: FUROSEMIDE 40 MG TABLET (FP) PO SCH (09:04)
[2016-10-16] MEDS: CARVEDILOL 3.125 MG TABLET (FP) PO SCH ×2 (09:04→21:49)
[2016-10-16] MEDS: PANTOPRAZOLE 40 MG TABLET (FP) PO SCH ×2 (09:04→21:49)
--- NOTE | 2016-10-16 09:13 | PN ---
Progress Note, Physician History of Present Illness: seen and examined today in [facility]. no overnight events. no new complaints. - Current Medication List Current Medications: Active Medications Albuterol Sulfate (Ventolin 0.083% Nebulizer Soln -) 1 amp NEB Q4H PRN PRN Reason: SHORT OF BREATH/WHEEZING Last Admin: 10/15/16 21:05 Dose: 1 amp Atorvastatin Calcium (Lipitor -) 40 mg PO HS [facility] Last Admin: 10/15/16 21:00 Dose: 40 mg Carvedilol (Coreg -) 3.125 mg PO BID [facility] Last Admin: 10/16/16 09:04 Dose: 3.125 mg Furosemide (Lasix -) 40 mg PO DAILY [facility] Last Admin: 10/16/16 09:04 Dose: 40 mg Levothyroxine Sodium (Synthroid -) 100 mcg PO DAILY@0700 [facility] Last Admin: 10/16/16 06:20 Dose: 100 mcg Pantoprazole Sodium (Protonix -) 40 mg PO BID [facility] Last Admin: 10/16/16 09:04 Dose: 40 mg - Objective Vital Signs: Vital Signs Temperature 97.9 F 10/16/16 06:00 Pulse Rate 73 10/16/16 06:00 Respiratory Rate 18 10/16/16 06:00 Blood Pressure 120/68 10/16/16 06:00 O2 Sat by Pulse Oximetry (%) 95 10/15/16 21:00 Constitutional: Yes: No Distress, Calm, Obese Eyes: Yes: Conjunctiva Clear, EOM Intact, PERRL HENT: Yes: Atraumatic, Normocephalic Neck: Yes: Supple, Trachea Midline Cardiovascular: Yes: Regular Rate and Rhythm, Murmur, S1, S2. No: Bradycardia, Tachycardia, Pulse Irregular, Bruit, JVD, Gallop, Rub, S3, S4, Varicosities Respiratory: Yes: Regular, Diminished. No: Rales, Rhonchi, SOB, Wheezes Gastrointestinal: Yes: Normal Bowel Sounds, Distention. No: Tenderness Musculoskeletal: Yes: Muscle Weakness Extremities: Yes: Amputation Edema: No Peripheral Pulses WNL: No Neurological: Yes: Alert, Oriented Psychiatric: Yes: Alert, Oriented Labs: CBC, BMP 10/16/16 05:58 10/16/16 05:58 INR, PTT INR 1.00 (0.82-1.09) 10/15/16 00:40 - ....Imaging Chest X-ray: Report Reviewed, Image Reviewed EKG: Report Reviewed, Image Reviewed Other: Report Reviewed, Image Reviewed (tele-nsr, frequent pvcs, ventricular couplets, no afib, no sig arrhythmia) Assessment/Plan 86 year old woman with a history of HTN, HLD, DMII, PAD h/o RLE amputation, CAD with h/o reported NSTEMI years ago in [place] that was treated medically, h /o Pafib not on full AC, h/o mild aortic stenosis, chronic colonic pseudoobstruction, admitted for severe anemia and elevated BUN, incidentally noted to have an elevated troponin level. Elevated troponin-NSTEMI likely type II [place], possible lateral ischemia on ekg, pt is asymptomatic -H/H improved appropriately s/p PRBCs -pt likely has underlying CAD given h/o NSTEMI treated medically in the past, presume her current elevated troponin with normal ck and mild ekg abnormalities is secondary to demand ischemia secondary to anemia -troponin trended down -telemetry showed no sig arrhythmias -echo showed normal LV systolic function, no sig , small to mod pericardial effusion that is stable -plan to continue with conservative/medical management of presumed underlying CAD -would prefer to start at least 1 anti-platelet, will discuss with GI if Plavix is preferable over ASA -cont Coreg -cont statin -no additional planned inpatient cardiac work up at this time, pt is acceptable from a cardiac standpoint for discharge Preop for endoscopy -as per staff pts family has opted against procedures Aortic stenosis-mild to moderate in the past -echo reported as no hemodynamic sig only aortic sclerosis -no further work up needed at this point Pafib -NSR on admission -has remained in nsr on tele
--- NOTE | 2016-10-16 10:43 | PN ---
GI Progress Note Subjective: No acute events No overt bleeding States feeling well and wants to go back to [place] - Objective Vital Signs: Vital Signs Temperature 97.9 F 10/16/16 06:00 Pulse Rate 73 10/16/16 06:00 Respiratory Rate 18 10/16/16 06:00 Blood Pressure 120/68 10/16/16 06:00 O2 Sat by Pulse Oximetry (%) 95 10/15/16 21:00 Constitutional: Calm Eyes: No: Sclera Icterus Cardiovascular: Yes: Regular Rate and Rhythm Respiratory: Yes: Diminished (at bases b/l) Gastrointestinal Inspection: Yes: Distention (soft, non tender + BS) ...Auscultate: Yes: Normoactive Bowel Sounds Labs: CBC, BMP 10/16/16 05:58 10/16/16 05:58 INR, PTT INR 1.00 (0.82-1.09) 10/15/16 00:40 Problem List - Problems (1) Anemia Assessment/Plan: H/H stable and BUN normalizing. ? if upper GI source I did ask patient regarding having upper endoscopy performed and she said no and spoke with family about this yesterday Would continue protonix 40mg PO BID for 1 week followed by once daily if she needs to remain of dual antiplatelet therapy and since endoscopic evaluation has not been performed Code(s): D64.9 - ANEMIA, UNSPECIFIED Qualifiers: Anemia type: unspecified type Qualified Code(s): D64.9 - Anemia, unspecified (2) Pseudoobstruction of colon Assessment/Plan: Needs frequent rectal tube decompression as surgery has not been agreed upon Avoid lactulose as part of bowel movement as this can help potentiate gaseous distention Code(s): K59.8 - OTHER SPECIFIED FUNCTIONAL INTESTINAL DISORDERS
[2016-10-16 14:26] LABS: URINE APPEARANCE CLEAR; URINE BILIRUBIN NEGATIVE (NEGATIVE); URINE BLOOD NEGATIVE (NEGATIVE); URINE COLOR LTYELLOW; URINE GLUCOSE (UA) NEGATIVE (NEGATIVE); URINE KETONE NEGATIVE (NEGATIVE); URINE NITRITE NEGATIVE (NEGATIVE); URINE PROTEIN NEGATIVE (NEGATIVE); URINE UROBILINOGEN NEGATIVE E.U./dl (0.2-1.0)
[2016-10-16 14:58] LABS: URINE LEUK ESTERASE 1+ (NEGATIVE)
[2016-10-16 15:07] LABS: URINE BACTERIA RARE /hpf (NONE SEEN); URINE HYALINE CAST 4 /lpf; URINE MUCUS RARE; URINE RBC <1 /hpf (0-3); URINE WBC 10 /hpf (3-5)
[2016-10-16] MEDS: ATORVASTATIN CA 40 MG TABLET (FP) PO SCH (21:49)
[2016-10-17] MEDS: LEVOTHYROXINE NA 100 MCG TABLET (FP) PO SCH (06:19)
[2016-10-17 07:57] LABS: BASOPHIL 0.6 % (0-2.0); EOSINOPHIL 2.6 % (0-4.5); MCHC 34.7 g/dl (32.0-36.0); MEAN CELL VOLUME 92.3 fl (80-96); NEUTROPHILS 62.7 % (42.8-82.8); PLATELET COUNT 227 K/MM3 (134-434); RDW 15.7 % (11.6-15.6); WHITE BLOOD COUNT 9.2 K/mm3 (4.0-10.0)
[2016-10-17] MEDS: PANTOPRAZOLE 40 MG TABLET (FP) PO SCH (10:57)
[2016-10-17] MEDS: CARVEDILOL 3.125 MG TABLET (FP) PO SCH (10:57)
[2016-10-17] MEDS: FUROSEMIDE 40 MG TABLET (FP) PO SCH (10:57)
--- NOTE | 2016-10-17 10:57 | DS ---
Physical Examination Vital Signs: Vital Signs Temperature 97.8 F 10/17/16 06:00 Pulse Rate 77 10/17/16 06:00 Respiratory Rate 18 10/17/16 06:00 Blood Pressure 127/69 10/17/16 06:00 O2 Sat by Pulse Oximetry (%) 96 10/16/16 21:00 Constitutional: Yes: No Distress, Calm Cardiovascular: Yes: Regular Rate and Rhythm Respiratory: Yes: Diminished Gastrointestinal: Yes: Normal Bowel Sounds, Soft, Abdomen, Obese, Distention. No: Tenderness Edema: No Labs: CBC, BMP 10/17/16 06:40 10/16/16 05:58 Discharge Summary Reason For Visit: TOXIC MEGACOLON ANEMIA Current Active Problems Anemia (Acute) NSTEMI (non-ST elevated myocardial infarction) (Acute) Toxic megacolon (Acute) Hospital Course: Admitted for anemia, NSTEMI found to have UTI seen by GI and Cardiology transfused 2 units PRBC ASA and Plavix discontinued Pt on Protonix BID She and her daughter does not want further interventions-- she is stable for dc to [place]-- recheck HCT - if no drop, may need to restart Plavix only. No ASA. Also Protonix 40mg BID x 7days and then decrease to once daily afterwards. pt is DNR Condition: Stable - Instructions Diet, Activity, Other Instructions: Protonix 40mg BID x 1 week and daily onwards. May start Plavix 75mg daily after one week after checking if HCT is stable. Do not start ASA Referrals: Ebenezer Farris MD [Primary Care Provider] - Disposition: [facility] - Home Medications Comprehensive Discharge Medication List: Ambulatory Orders Carvedilol 3.125 mg PO BID 09/19/15 Cholecalciferol (Vitamin D3) [Vitamin D3] 1,000 unit PO DAILY 09/19/15 Docusate Sodium [Colace -] 300 mg PO HS 09/19/15 Furosemide [Lasix -] 40 mg PO DAILY 09/19/15 Insulin Aspart [Novolog Flexpen] 0 unit SQ ASDIR 09/19/15 Insulin Glargine,Hum.rec.anlog [Lantus Solostar PEN -] 20 units SQ DAILY Levothyroxine [Synthroid -] 100 mcg PO DAILY 09/19/15 Magnesium Hydrox 2400MG/30Ml [Milk of Magnesia -] 30 ml PO Q2D 09/19/15 Multivitamins [Multivit ([facility] Formulary)] 1 tab PO DAILY 09/19/15 Polyethylene Glycol 3350 [Gavilax] 17 gm PO DAILY 09/19/15 Sennosides [Senna] 2 tab PO HS 09/19/15 Potassium Chloride [K-Dur -] 20 meq PO DAILY #30 tablet.er 09/24/15 Lactulose 20 gm PO ASDIR 05/21/16 Pantoprazole Sodium [Protonix -] 40 mg PO BID #60 tab 10/16/16
--- NOTE | 2016-10-17 11:09 | PN ---
Progress Note, Physician - Current Medication List Current Medications: Active Medications Albuterol Sulfate (Ventolin 0.083% Nebulizer Soln -) 1 amp NEB Q4H PRN PRN Reason: SHORT OF BREATH/WHEEZING Last Admin: 10/15/16 21:05 Dose: 1 amp Atorvastatin Calcium (Lipitor -) 40 mg PO HS [facility] Last Admin: 10/16/16 21:49 Dose: 40 mg Carvedilol (Coreg -) 3.125 mg PO BID [facility] Last Admin: 10/17/16 10:57 Dose: 3.125 mg Furosemide (Lasix -) 40 mg PO DAILY [facility] Last Admin: 10/17/16 10:57 Dose: 40 mg Levothyroxine Sodium (Synthroid -) 100 mcg PO DAILY@0700 [facility] Last Admin: 10/17/16 06:19 Dose: 100 mcg Pantoprazole Sodium (Protonix -) 40 mg PO BID [facility] Last Admin: 10/17/16 10:57 Dose: 40 mg - Objective Vital Signs: Vital Signs Temperature 97.8 F 10/17/16 06:00 Pulse Rate 77 10/17/16 06:00 Respiratory Rate 18 10/17/16 06:00 Blood Pressure 127/69 10/17/16 06:00 O2 Sat by Pulse Oximetry (%) 96 10/16/16 21:00 Eyes: Yes: WNL, Conjunctiva Clear, EOM Intact HENT: Yes: WNL, Atraumatic, Normocephalic Neck: Yes: WNL, Supple, Trachea Midline Cardiovascular: Yes: WNL, Regular Rate and Rhythm Respiratory: Yes: WNL, Regular, CTA Bilaterally Gastrointestinal: Yes: WNL, Normal Bowel Sounds Genitourinary: Yes: WNL Musculoskeletal: Yes: WNL Extremities: Yes: WNL Edema: No Integumentary: Yes: WNL Neurological: Yes: WNL, Alert, Oriented ...Motor Strength: WNL Psychiatric: Yes: WNL Labs: CBC, BMP 10/17/16 06:40 10/16/16 05:58 INR, PTT INR 1.00 (0.82-1.09) 10/15/16 00:40 Assessment/Plan 86 year old woman with a history of HTN, HLD, DMII, PAD h/o RLE amputation, CAD with h/o reported NSTEMI years ago in [place] that was treated medically, h /o Pafib not on full AC, h/o mild aortic stenosis, chronic colonic pseudoobstruction, admitted for severe anemia and elevated BUN, incidentally noted to have an elevated troponin level. Elevated troponin-NSTEMI likely type II [place], possible lateral ischemia on ekg, pt is asymptomatic -H/H improved appropriately s/p PRBCs -pt likely has underlying CAD given h/o NSTEMI treated medically in the past, presume her current elevated troponin with normal ck and mild ekg abnormalities is secondary to demand ischemia secondary to anemia -troponin trended down -telemetry showed no sig arrhythmias -echo showed normal LV systolic function, no sig , small to mod pericardial effusion that is stable -plan to continue with conservative/medical management of presumed underlying CAD -would prefer to start at least 1 anti-platelet, will discuss with GI if Plavix is preferable over ASA -cont Coreg -cont statin -no additional planned inpatient cardiac work up at this time, pt is acceptable from a cardiac standpoint for discharge Preop for endoscopy -as per staff pts family has opted against procedures Aortic stenosis-mild to moderate in the past -echo reported as no hemodynamic sig only aortic sclerosis -no further work up needed at this point Pafib -NSR on admission -has remained in nsr on tele
[2016-10-17] MEDS ORDERED: LEVOFLOXACIN 500 MG TABLET (FP) PO ONE (11:53)
[2016-10-17 13:46] VITALS: BP 107/56; PULSE 63; TEMP 98.2
== END 2016-10-17 15:35 | DRG 811 ==
LOC: JER 23:26 → JERBED 10-15 02:54 → UNDOADMIN 10-15 03:11 → JERBED 10-15 03:11 → J8W 10-15 06:13 → J4S 10-15 12:24
PROVIDERS: ADMIT Internal Medicine; ATTEND Internal Medicine
PROC: 30233N1 Transfusion of Nonautologous Red Blood Cells into Peripheral Vein, Percutaneous Approach (ICD-10-PCS; principal; 2016-10-15)
DX: D64.9 Anemia, unspecified (principal); I21.4 Non-ST elevation (NSTEMI) myocardial infarction; K59.31 Toxic megacolon; N39.0 Urinary tract infection, site not specified; I50.32 Chronic diastolic (congestive) heart failure; K56.0 Paralytic ileus; F03.90 Unspecified dementia, unspecified severity, without behavioral disturbance, psychotic disturbance, mood disturbance, and anxiety; J44.9 Chronic obstructive pulmonary disease, unspecified; I35.0 Nonrheumatic aortic (valve) stenosis; I11.0 Hypertensive heart disease with heart failure; E11.40 Type 2 diabetes mellitus with diabetic neuropathy, unspecified; I25.10 Atherosclerotic heart disease of native coronary artery without angina pectoris; I73.89 Other specified peripheral vascular diseases; E66.01 Morbid (severe) obesity due to excess calories; Z68.37 Body mass index [BMI] 37.0-37.9, adult; I48.0 Paroxysmal atrial fibrillation; K59.8 Other specified functional intestinal disorders; B96.20 Unspecified Escherichia coli [E. coli] as the cause of diseases classified elsewhere; Z66 Do not resuscitate; Z88.0 Allergy status to penicillin; Z89.511 Acquired absence of right leg below knee
CPT/HCPCS: 36415; 36430; 71010-TC; 74176-TC; 80048; 80053; 81003; 81015; 82009; 82272; 82550; 83605; 83690; 83735; 84484; 85025; 85027; 85610; 86850; 86900; 86901; 86922; 87040; 87086; 87186; 93005; 93010; 93306-TC; 94640; 99283-25; P9038; P9058

== ENCOUNTER 2016-11-10 19:00 | Inpatient (IN) | payer OTHER ==
--- NOTE | 2016-11-10 20:18 | PDOC ---
History of Present Illness - History of Present Illness Initial Comments: 11/10/16 20:30 Patient is a 86 year old female with significant medical hx of Willard's syndrome, DM, HTN, CHF, AFib, dementia, aortic stenosis, right BKA, anemia, and COPD , coming from [facility], who is presenting to the ED with chronic colonic pseudo obstruction. Patient was recently discharged on 10/17 after admission for the same complaint. The patient is supposed to be controlled at the [place] with rectal tube. She was evaluated by Dr. Sullivan and Dr. Benítez at the end of September when the patient was decompressed with rectal tube. Family did not want surgery at that time. The patient is presenting to the ED today with a significantly distended abdomen; [place] papers state the patient complains of abdominal discomfort and nausea. Her last BM was 10/17. Denies fever, chills, vomiting, or pain. Allergies: penicillin, vancomycin, gluten Social Hx: Denies alcohol, tobacco, or drug use. Surgical Hx: s/p right BKA PCP: Ebenezer Farris MD <Rola Kemp - Last Filed: 11/10/16 20:45> <Soraida De La Garza - Last Filed: 11/10/16 23:13> - General Chief Complaint: Pain Stated Complaint: ABDOMINAL PAIN Time Seen by Provider: 11/10/16 19:03 Past History <Rola Kemp - Last Filed: 11/10/16 20:45> - Past Medical History Anemia: Yes Cardiac Disorders: Yes (a-fib, chf, aortic valve disorder) COPD: Yes CHF: Yes Dementia: Yes Diabetes: Yes GI Disorders: Yes (Penny Syndrome) Thyroid Disease: Yes (Hypothyroid) - Surgical History Orthopedic Surgery: Yes (RT BKA) - Psycho/Social/Smoking Cessation Hx Anxiety: No Suicidal Ideation: No Smoking History: Former smoker Have you smoked in the past 12 months: No If you are a former smoker, when did you quit?: 30yrs Information on smoking cessation initiated: No Hx Alcohol Use: No Drug/Substance Use Hx: No Substance Use Type: None Hx Substance Use Treatment: No <Soraida De La Garza - Last Filed: 11/10/16 23:13> - Past Medical History Allergies/Adverse Reactions: Allergies Allergy/AdvReac Type Severity Reaction Status Date / Time gluten Allergy Severe Verified 11/10/16 19:15 Penicillins Allergy Verified 11/10/16 19:15 vancomycin Allergy Verified 11/10/16 19:15 Home Medications: Ambulatory Orders Carvedilol 3.125 mg PO BID 09/19/15 Cholecalciferol (Vitamin D3) [Vitamin D3] 1,000 unit PO DAILY 09/19/15 Docusate Sodium [Colace -] 300 mg PO HS 09/19/15 Furosemide [Lasix -] 40 mg PO DAILY 09/19/15 Insulin Aspart [Novolog Flexpen] 0 unit SQ ASDIR 09/19/15 Insulin Glargine,Hum.rec.anlog [Lantus Solostar PEN -] 20 units SQ DAILY Levothyroxine [Synthroid -] 100 mcg PO DAILY 09/19/15 Magnesium Hydrox 2400MG/30Ml [Milk of Magnesia -] 30 ml PO Q2D 09/19/15 Multivitamins [Multivit ([facility] Formulary)] 1 tab PO DAILY 09/19/15 Polyethylene Glycol 3350 [Gavilax] 17 gm PO DAILY 09/19/15 Sennosides [Senna] 2 tab PO HS 09/19/15 Potassium Chloride [K-Dur -] 20 meq PO DAILY #30 tablet.er 09/24/15 Lactulose 20 gm PO ASDIR 05/21/16 Pantoprazole Sodium [Protonix -] 40 mg PO BID #60 tab 10/16/16 Levofloxacin [Levaquin -] 500 mg PO DAILY #7 tablet 10/17/16 Review of Systems - Review of Systems Comments:: 11/10/16 20:40 CONSTITUTIONAL: Absent: fever, chills, diaphoresis, generalized weakness, malaise, loss of appetite HEENT: Absent: rhinorrhea, nasal congestion, throat pain, throat swelling, difficulty swallowing, mouth swelling, ear pain, eye pain, visual changes CARDIOVASCULAR: Absent: chest pain, syncope, palpitations, irregular heart rate, lightheadedness , peripheral edema RESPIRATORY: Absent: cough, shortness of breath, dyspnea with exertion, orthopnea, wheezing, stridor, hemoptysis GASTROINTESTINAL: Present: abdominal discomfort, nausea, abdominal distention, constipation Absent: vomiting, diarrhea, melena, hematochezia GENITOURINARY: Absent: dysuria, frequency, urgency, hesitancy, hematuria, flank pain, genital pain MUSCULOSKELETAL: Absent: myalgia, arthralgia, joint swelling SKIN: Absent: rash, itching, pallor HEMATOLOGIC/IMMUNOLOGIC: Absent: easy bleeding, easy bruising, lymphadenopathy, frequent infections ENDOCRINE: Absent: unexplained weight gain, unexplained weight loss, heat intolerance, cold intolerance NEUROLOGIC: Absent: headache, focal weakness or paresthesia, dizziness, unsteady gait, seizure, mental status changes, bladder or bowel incontinence. PSYCHIATRIC: Absent: anxiety, depression, suicidal or homicidal ideation, hallucinations <Rola Kemp - Last Filed: 11/10/16 20:45> *Physical Exam - Vital Signs Last Vital Signs Temp Pulse Resp BP Pulse Ox 98 F 78 16 138/83 97 11/10/16 19:09 11/10/16 19:09 11/10/16 19:09 11/10/16 19:09 11/10/16 19:09 - Physical Exam Comments: 11/10/16 20:42 GENERAL: Well developed, well nourished. Awake and alert. No acute distress. HEENT: Normocephalic, atraumatic. PERRLA, EOMI. No conjunctival pallor. Sclera are non- icteric. Moist mucous membranes. Oropharynx is clear. NECK: Supple. Full ROM. No JVD. Carotid pulses 2+ and symmetric, without bruits. No thyromegaly. No lymphadenopathy. CARDIOVASCULAR: Regular rate and rhythm. No murmurs, rubs, or gallops. Distal pulses are 2+ and symmetric. PULMONARY: No evidence of respiratory distress. Lungs clear to auscultation bilaterally. No wheezing, rales or rhonchi. ABDOMINAL: Soft. Non-tender. Severely distended abdomen. No rebound or guarding. No organomegaly. Normoactive bowel sounds. MUSCULOSKELETAL: Normal range of motion at all joints. No bony deformities or tenderness. No CVA tenderness. EXTREMITIES: Right BKA. No cyanosis. No clubbing. No edema. No calf tenderness. SKIN: Warm and dry. Normal capillary refill. No rashes. No jaundice. NEUROLOGICAL: Alert, awake, conversant. Cranial nerves 2-12 intact. Normal speech. PSYCHIATRIC: Cooperative. Good eye contact. Appropriate mood and affect. <Rola Kemp - Last Filed: 11/10/16 20:45> - Vital Signs Last Vital Signs Temp Pulse Resp BP Pulse Ox 98 F 78 16 138/83 97 11/10/16 19:09 11/10/16 19:09 11/10/16 19:09 11/10/16 19:09 11/10/16 19:09 <Soraida De La Garza - Last Filed: 11/10/16 23:13> ED Treatment Course - LABORATORY CBC & Chemistry Diagram: 11/10/16 21:26 11/10/16 21:26 <Soraida De La Garza - Last Filed: 11/10/16 23:13> *DC/Admit/Observation/Transfer - Attestations Scribe Attestion: 11/10/16 20:44 Documentation prepared by Rola Kemp, acting as registered medical transcriptionist for Soraida De La Garza MD. <Rola Kemp - Last Filed: 11/10/16 20:45> - Discharge Dispostion Admit: Yes <Soraida De La Garza - Last Filed: 11/10/16 23:13> Diagnosis at time of Disposition: Morbid obesity with BMI of 40.0-44.9, adult, Pseudoobstruction of colon - Discharge Dispostion Condition at time of disposition: Good - Referrals Referrals: Ebenezer Farris MD [Primary Care Provider] -
--- NOTE | 2016-11-10 21:32 | PDOC ---
History of Present Illness - General History Source: Patient - History of Present Illness Travel History: No Initial Comments: 11/10/16 22:55 86F with pmh of Penny's syndrome, DM, HTN, CHF, AFib, dementia, aortic stenosis, right BKA, anemia, and COPD , coming from [facility], presenting to the ED with chronic colonic pseudo obstruction. Patient was discharged on 10/17 after admission for UTI and same complaint. The patient is supposed to be controlled at the [place] with rectal tube. She was evaluated by Dr. Sullivan and Dr. Benítez October 15 when the patient was decompressed with rectal tube by GI team. PAtient and daugter refused Surgery. PAtient DNR. The patient is presenting to the ED today with a significantly distended abdomen but non painful ; [place] papers state the patient complains of abdominal discomfort and nausea. Her last BM was 10/17 when decrompressed by GI. . Denies fever, chills, vomiting, or pain. <Collin Kessler - Last Filed: 11/10/16 22:55> <Soraida De La Garza - Last Filed: 11/10/16 23:10> - General Chief Complaint: Pain Stated Complaint: ABDOMINAL PAIN Time Seen by Provider: 11/10/16 19:03 Past History - Past Medical History Anemia: Yes Cardiac Disorders: Yes (a-fib, chf, aortic valve disorder) COPD: Yes CHF: Yes Dementia: Yes Diabetes: Yes GI Disorders: Yes ([place] Syndrome) Thyroid Disease: Yes (Hypothyroid) - Surgical History Orthopedic Surgery: Yes (RT BKA) - Psycho/Social/Smoking Cessation Hx Anxiety: No Suicidal Ideation: No Smoking History: Former smoker Have you smoked in the past 12 months: No If you are a former smoker, when did you quit?: 30yrs Information on smoking cessation initiated: No Hx Alcohol Use: No Drug/Substance Use Hx: No Substance Use Type: None Hx Substance Use Treatment: No <Collin Kessler - Last Filed: 11/10/16 22:55> <Soraida De La Garza - Last Filed: 11/10/16 23:10> - Past Medical History Allergies/Adverse Reactions: Allergies Allergy/AdvReac Type Severity Reaction Status Date / Time gluten Allergy Severe Verified 11/10/16 19:15 Penicillins Allergy Verified 11/10/16 19:15 vancomycin Allergy Verified 11/10/16 19:15 Home Medications: Ambulatory Orders Carvedilol 3.125 mg PO BID 09/19/15 Cholecalciferol (Vitamin D3) [Vitamin D3] 1,000 unit PO DAILY 09/19/15 Docusate Sodium [Colace -] 300 mg PO HS 09/19/15 Furosemide [Lasix -] 40 mg PO DAILY 09/19/15 Insulin Aspart [Novolog Flexpen] 0 unit SQ ASDIR 09/19/15 Insulin Glargine,Hum.rec.anlog [Lantus Solostar PEN -] 20 units SQ DAILY Levothyroxine [Synthroid -] 100 mcg PO DAILY 09/19/15 Magnesium Hydrox 2400MG/30Ml [Milk of Magnesia -] 30 ml PO Q2D 09/19/15 Multivitamins [Multivit ([facility] Formul[facility])] 1 tab PO DAILY 09/19/15 Polyethylene Glycol 3350 [Gavilax] 17 gm PO DAILY 09/19/15 Sennosides [Senna] 2 tab PO HS 09/19/15 Potassium Chloride [K-Dur -] 20 meq PO DAILY #30 tablet.er 09/24/15 Lactulose 20 gm PO ASDIR 05/21/16 Pantoprazole Sodium [Protonix -] 40 mg PO BID #60 tab 10/16/16 Levofloxacin [Levaquin -] 500 mg PO DAILY #7 tablet 10/17/16 Review of Systems - Review of Systems Constitutional: No: Symptoms Reported HEENTM: No: Symptoms Reported Respiratory: No: Symptoms reported Cardiac (ROS): No: Symptoms Reported ABD/GI: Yes: See HPI : No: Symptoms Reported Musculoskeletal: No: Symptoms Reported Integumentary: No: Symptoms Reported Neurological: No: Symptoms reported <Collin Kessler - Last Filed: 11/10/16 22:55> *Physical Exam - Vital Signs Last Vital Signs Temp Pulse Resp BP Pulse Ox 98 F 78 16 138/83 97 11/10/16 19:09 11/10/16 19:09 11/10/16 19:09 11/10/16 19:09 11/10/16 19:09 - Physical Exam General Appearance: Yes: Nourished, Obese HEENT: positive: EOMI, SOUTH Respiratory/Chest: positive: Normal Breath Sounds. negative: Respiratory Distress Cardiovascular: positive: Regular Rhythm, Regular Rate, S1, S2 Gastrointestinal/Abdominal: positive: Increased Bowel Sounds, Protuberent, Distended. negative: Tender, Soft, Guarding, Rebound, Tenderness Musculoskeletal: positive: Other (Right leg amputation below knee) Extremity: positive: Normal Capillary Refill <Collin Kessler - Last Filed: 11/10/16 22:55> - Vital Signs Last Vital Signs Temp Pulse Resp BP Pulse Ox 98 F 78 16 138/83 97 11/10/16 19:09 11/10/16 19:09 11/10/16 19:09 11/10/16 19:09 11/10/16 19:09 <Soraida De La Garza - Last Filed: 11/10/16 23:10> ED Treatment Course - LABORATORY CBC & Chemistry Diagram: 11/10/16 21:26 11/10/16 21:26 <Collin Kessler - Last Filed: 11/10/16 22:55> - LABORATORY CBC & Chemistry Diagram: 11/10/16 21:26 11/10/16 21:26 - ADDITIONAL ORDERS Additional order review: Laboratory Results 11/10/16 21:26 Sodium 137 Potassium 4.6 D Chloride 101 Carbon Dioxide 28 Anion Gap 8 BUN 37 H Creatinine 0.8 Creat Clearance w eGFR > 60 Random Glucose 174 H D Calcium 9.4 Total Bilirubin < 0.1 L D AST 16 D ALT 9 L D Alkaline Phosphatase 111 D Total Protein 6.4 Albumin 3.2 L 11/10/16 21:26 RBC 3.67 MCV 94.7 MCHC 32.8 RDW 14.7 MPV 10.8 Neutrophils % 76.6 D Lymphocytes % 14.4 D Monocytes % 6.4 Eosinophils % 1.7 Basophils % 0.9 <Soraida De La Garza - Last Filed: 11/10/16 23:10> *DC/Admit/Observation/Transfer <Collin Kessler - Last Filed: 11/10/16 22:55> - Discharge Dispostion Admit: Yes <Soraida De La Garza - Last Filed: 11/10/16 23:10> Diagnosis at time of Disposition: Morbid obesity with BMI of 40.0-44.9, adult, Pseudoobstruction of colon - Discharge Dispostion Condition at time of disposition: Good - Referrals Referrals: Ebenezer Farris MD [Primary Care Provider] - - Patient Instructions - Post Discharge Activity
[2016-11-10 21:43] LABS: BASOPHIL 0.9 % (0-2.0); EOSINOPHIL 1.7 % (0-4.5); MCH 31.1 pg (25.7-33.7); MCHC 32.8 g/dl (32.0-36.0); MEAN CELL VOLUME 94.7 fl (80-96); MEAN PLT VOLUME 10.8 fl (7.5-11.1); NEUTROPHILS 76.6 % (42.8-82.8); PLATELET COUNT 185 K/MM3 (134-434); RDW 14.7 % (11.6-15.6); WHITE BLOOD COUNT 9.8 K/mm3 (4.0-10.0)
[2016-11-10 22:03] LABS: ALBUMIN 3.2 g/dl (3.4-5.0); ALK PHOS 111 U/L (45-117); ANION GAP 8 (8-16); CALCIUM 9.4 mg/dL (8.5-10.1); CO2 28 mmol/L (21-32); CREATININE 0.8 mg/dL (0.55-1.02); GLUCOSE,RANDOM 174 mg/dL (74-106); SGPT/ALT 9 U/L (12-78); TOT PROT 6.4 g/dl (6.4-8.2)
[2016-11-10 22:09] LABS: BILIRUBIN,TOTAL < 0.1 mg/dL (0.2-1.0); SGOT/AST 16 U/L (15-37)
[2016-11-11 03:49] VITALS: BMI 38.2
[2016-11-11] MEDS ORDERED: ASPIRIN COATED 81 MG TABLET.EC PO SCH (10:00)
[2016-11-11] MEDS ORDERED: PANTOPRAZOLE 40 MG TABLET (FP) PO SCH (10:00)
[2016-11-11] MEDS ORDERED: PT OWN MED DRAWER 7, Y5N ONE (10:31)
[2016-11-11] MEDS: POTASSIUM CHLORIDE TABS 20 MEQ TABLET.ER (FP) PO SCH (10:38)
[2016-11-11] MEDS: MULTIVITAMINS (DAILY MVI) TABLET (FP) PO SCH (10:38)
[2016-11-11] MEDS: MAGNESIUM HYDROX 2400MG/30ML ORAL SUSPENSION 30 ML CUP PO SCH (10:38)
[2016-11-11] MEDS: CARVEDILOL 3.125 MG TABLET (FP) PO SCH ×2 (10:39→21:47)
[2016-11-11] MEDS: CLOPIDOGREL BISULFATE 75 MG TABLET (FP) PO SCH (10:39)
[2016-11-11] MEDS: LEVOTHYROXINE NA 100 MCG TABLET (FP) PO SCH (10:39)
[2016-11-11] MEDS: FUROSEMIDE 40 MG TABLET (FP) PO SCH (10:39)
[2016-11-11] MEDS: INSULIN (NOVOLOG) ASPART 100 UNITS/ML 10ML VIAL SQ SCH ×2 (11:31→18:32)
--- NOTE | 2016-11-11 11:37 | HP ---
Admitting History and Physical - Primary Care Physician PCP: Ebenezer Farris - Admission Chief Complaint: abd distension History of Present Illness: ER HISTORY - History of Present Illness Initial Comments: 11/10/16 20:30 Patient is a 86 year old female with significant medical hx of Penny's syndrome, DM, HTN, CHF, AFib, dementia, aortic stenosis, right BKA, anemia, and COPD , coming from [facility], who is presenting to the ED with chronic colonic pseudo obstruction. Patient was recently discharged on 10/17 after admission for the same complaint. The patient is supposed to be controlled at the [place] with rectal tube. She was evaluated by Dr. Sullivan and Dr. Benítez at the end of September when the patient was decompressed with rectal tube. Family did not want surgery at that time. The patient is presenting to the ED today with a significantly distended abdomen; [place] papers state the patient complains of abdominal discomfort and nausea. Her last BM was 10/17. Denies fever, chills, vomiting, or pain. Allergies: penicillin, vancomycin, gluten Social Hx: Denies alcohol, tobacco, or drug use. Surgical Hx: s/p right BKA PCP: Ebenezer Farris MD Pt examined by me in the floors She is well known to me from previous admissions. History from [place] notes, pt is a poor historian. She was sent here to hospital for evaluation of abdominal pain , distension. She has a small bm yesterday . Pt was c/o nausea and abd pain when her daughter came to visit her yesterday. Daughter requested that pt be sent to the hospital. Unable to contact [place] - PMD-- DR Ramos as he is in [facility] currently.Pt is supposed to have intermittent rectal tube placement at the [place] as well as frequent turning to decompress her bowel. She was recently admitted here for GI bleed, anemia, NSTEMI-- restarted on Plavix. 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 Cardiovascular: Yes: AFIB, Aortic Stenosis, CAD, CHF (left ventricular end diastolic dysfunction), HTN Pulmonary: Yes: COPD Gastrointestinal: Yes: Other (pseudoobstruction due to diabetic neuropathy) Endocrine: Yes: Diabetes Mellitus - Advance Directives Advance Directives: Yes: DNR - Smoking History Smoking history: Former smoker Have you smoked in the past 12 months: No If you are a former smoker, when did you quit?: 30yrs - Alcohol/Substance Use Hx Alcohol Use: No - Social History ADL: Support Services History of Recent Travel: No Home Medications - Allergies Allergies/Adverse Reactions: Allergies Allergy/AdvReac Type Severity Reaction Status Date / Time gluten Allergy Severe Verified 11/10/16 19:15 Penicillins Allergy Verified 11/10/16 19:15 vancomycin Allergy Verified 11/10/16 19:15 - Home Medications Home Medications: Ambulatory Orders Carvedilol 3.125 mg PO BID 09/19/15 Cholecalciferol (Vitamin D3) [Vitamin D3] 1,000 unit PO DAILY 09/19/15 Docusate Sodium [Colace -] 300 mg PO HS 09/19/15 Furosemide [Lasix -] 40 mg PO DAILY 09/19/15 Insulin Aspart [Novolog Flexpen] 0 unit SQ ASDIR 09/19/15 Insulin Glargine,Hum.rec.anlog [Lantus Solostar PEN -] 20 units SQ DAILY Levothyroxine [Synthroid -] 100 mcg PO DAILY 09/19/15 Magnesium Hydrox 2400MG/30Ml [Milk of Magnesia -] 30 ml PO Q2D 09/19/15 Multivitamins [Multivit ([facility] Formulary)] 1 tab PO DAILY 09/19/15 Sennosides [Senna] 2 tab PO HS 09/19/15 Potassium Chloride [K-Dur -] 20 meq PO DAILY #30 tablet.er 09/24/15 Lactulose 20 gm PO ASDIR 05/21/16 Pantoprazole Sodium [Protonix -] 40 mg PO BID #60 tab 10/16/16 Aspirin [Aspirin EC] 81 mg PO DAILY 11/11/16 Clopidogrel Bisulfate [Clopidogrel] 75 mg PO DAILY 11/11/16 Review of Systems - Review of Systems Constitutional: denies: Chills, Fever Gastrointestinal: denies: Abdominal Pain, Bloating, Constipation, Nausea Physical Examination Vital Signs: Vital Signs Temperature 97.0 F L 11/11/16 09:01 Pulse Rate 65 11/11/16 09:01 Respiratory Rate 18 11/11/16 09:01 Blood Pressure 134/47 11/11/16 09:01 O2 Sat by Pulse Oximetry (%) 100 07/26/17 02:51 Constitutional: Yes: No Distress, Moderate Distress Cardiovascular: Yes: Regular Rate and Rhythm Respiratory: Yes: CTA Bilaterally Gastrointestinal: Yes: Normal Bowel Sounds, Soft, Abdomen, Obese, Distention. No: Tenderness Edema: Yes Edema: LLE: 1+, RLE: 1+ Psychiatric: Yes: Alert Labs: Laboratory Results - last 24 hr 11/10/16 11/10/16 11/11/16 21:26 21:26 11:27 WBC 9.8 RBC 3.67 Hgb 11.4 Hct 34.8 D MCV 94.7 MCH 31.1 MCHC 32.8 RDW 14.7 Plt Count 185 MPV 10.8 Neutrophils % 76.6 D Lymphocytes % 14.4 D Monocytes % 6.4 Eosinophils % 1.7 Basophils % 0.9 Sodium 137 Potassium 4.6 D Chloride 101 Carbon Dioxide 28 Anion Gap 8 BUN 37 H Creatinine 0.8 Creat Clearance w eGFR > 60 POC Glucometer 97 Random Glucose 174 H D Calcium 9.4 Total Bilirubin < 0.1 L D AST 16 D ALT 9 L D Alkaline Phosphatase 111 D Total Protein 6.4 Albumin 3.2 L Imaging - Results Chest X-ray: Image Reviewed (no infiltrate) X-ray: Report Reviewed EKG: Image Reviewed (sinus) Problem List - Problems (1) Morbid obesity with BMI of 40.0-44.9, adult Code(s): Z68.41 - BODY MASS INDEX (BMI) 40.0-44.9, ADULT (2) Pseudoobstruction of colon Code(s): K59.8 - OTHER SPECIFIED FUNCTIONAL INTESTINAL DISORDERS (3) Abdominal distention Code(s): R14.0 - ABDOMINAL DISTENSION (GASEOUS) (4) Adynamic ileus Code(s): K56.0 - PARALYTIC ILEUS (5) CAD (coronary artery disease) Code(s): I25.10 - ATHSCL HEART DISEASE OF [place] CORONARY ARTERY W/O ANG PCTRS Qualifiers: Coronary Disease-Associated Artery/Lesion type: [place] artery [place] vs. transplanted heart: [place] heart Associated angina: without angina Qualified Code(s): I25.10 - Atherosclerotic heart disease of [place] coronary artery without angina pectoris (6) Dementia Code(s): F03.90 - UNSPECIFIED DEMENTIA WITHOUT BEHAVIORAL DISTURBANCE Qualifiers: Dementia type: Alzheimer's disease Alzheimer's disease onset: late- onset Dementia behavioral disturbance: without behavioral disturbance Qualified Code(s): G30.1 - Alzheimer's disease with late onset; F02.81 - Dementia in other diseases classified elsewhere with behavioral disturbance Assessment/Plan PLAN continue with plavix, H/HCT stable No signs of GI bleeding GI eval for decompression FUA noted-- no obstruction continue with meds Full liquid diet Protonix PO frequent turning DVT prophylaxis-- SCD Needs frequent rectal tube placements for decompression, will need to stress the NH for placing rectal tube.
--- NOTE | 2016-11-11 12:57 | EKG ---
Test Reason : Blood Pressure : / mmHG Vent. Rate : 073 BPM Atrial Rate : 073 BPM P-R Int : 200 ms QRS Dur : 136 ms QT Int : 460 ms P-R-T Axes : 083 -39 086 degrees QTc Int : 506 ms SINUS RHYTHM WITH OCCASIONAL PREMATURE VENTRICULAR COMPLEXES LEFT AXIS DEVIATION NON-SPECIFIC INTRA-VENTRICULAR CONDUCTION BLOCK INFERIOR INFARCT , AGE UNDETERMINED ABNORMAL ECG WHEN COMPARED WITH ECG OF 15-OCT-2016 09:54, NON-SPECIFIC INTRA-VENTRICULAR CONDUCTION BLOCK HAS REPLACED INCOMPLETE LEFT BUNDLE BRANCH BLOCK Confirmed by CHRISTOPHER BARTON, DILLON ([id number]) on 11/11/2016 12:56:42 PM Referred By: Confirmed By:DILLON WHITE MD
[2016-11-11] MEDS ORDERED: LACTULOSE 20 GM/30 ML UDC (FOR ORAL USE ONLY) PO SCH (14:00)
--- NOTE | 2016-11-11 15:13 | CON.GI ---
Consult Consult Specialty:: GI Referred by:: Dr. Katelin Whitaker Reason for Consultation:: Distended abdomen for rectal tube placement - History of Present Illness Chief Complaint: Marked gaseous distension and abdominal discomfort History of Present Illness: Patient is an 86 year old woman from [place] admitted through ER for evaluation of abdominal distention. She has history of chronic colonic pseudoobstruction that has been treated conservatively (patient and family has refused colonoscopy / surgical intervention consisting of possible venting colostomy) via rectal tube decompression on multiple occasions. There is no associated abdominal pain, nausea or vomiting, no fever or chills. Her last bowel movement was a day earlier. 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 As above , she presented in the ER yesterday for the abdominal distension. Her last admission was about 3 weeks ago for a similar presentation. She was also noted to have dark guaiac positive stool, was more anemic, was transfused and family/ patient refused upper endoscopy. 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 morbid obesity - Past Surgical History Past Surgical History: Yes: Amputation (right BKA), Hysterectomy - Alcohol/Substance Use Hx Alcohol Use: No - Smoking History Smoking history: Former smoker Have you smoked in the past 12 months: No If you are a former smoker, when did you quit?: 30yrs - Social History Usual Living Arrangement: Correction ADL: Support Services Place of : Other ([facility]) History of Recent Travel: No Home Medications - Allergies Allergies/Adverse Reactions: Allergies Allergy/AdvReac Type Severity Reaction Status Date / Time gluten Allergy Severe Verified 11/10/16 19:15 Penicillins Allergy Verified 11/10/16 19:15 vancomycin Allergy Verified 11/10/16 19:15 - Home Medications Home Medications: Ambulatory Orders Carvedilol 3.125 mg PO BID 09/19/15 Cholecalciferol (Vitamin D3) [Vitamin D3] 1,000 unit PO DAILY 09/19/15 Docusate Sodium [Colace -] 300 mg PO HS 09/19/15 Furosemide [Lasix -] 40 mg PO DAILY 09/19/15 Insulin Aspart [Novolog Flexpen] 0 unit SQ ASDIR 09/19/15 Insulin Glargine,Hum.rec.anlog [Lantus Solostar PEN -] 20 units SQ DAILY Levothyroxine [Synthroid -] 100 mcg PO DAILY 09/19/15 Magnesium Hydrox 2400MG/30Ml [Milk of Magnesia -] 30 ml PO Q2D 09/19/15 Multivitamins [Multivit ([facility] Formulary)] 1 tab PO DAILY 09/19/15 Sennosides [Senna] 2 tab PO HS 09/19/15 Potassium Chloride [K-Dur -] 20 meq PO DAILY #30 tablet.er 09/24/15 Lactulose 20 gm PO ASDIR 05/21/16 Pantoprazole Sodium [Protonix -] 40 mg PO BID #60 tab 10/16/16 Aspirin [Aspirin EC] 81 mg PO DAILY 11/11/16 Clopidogrel Bisulfate [Clopidogrel] 75 mg PO DAILY 11/11/16 Review of Systems - Review of Systems Gastrointestinal: reports: Bloating, Constipation. denies: Abdominal Pain, Diarrhea, Melena, Rectal Bleeding, Vomiting Physical Exam-GI Vital Signs: Vital Signs Temperature 97.0 F L 11/11/16 09:01 Pulse Rate 65 11/11/16 09:01 Respiratory Rate 18 11/11/16 09:01 Blood Pressure 134/47 11/11/16 09:01 O2 Sat by Pulse Oximetry (%) 90 L 11/11/16 09:00 Constitutional: Yes: Calm Eyes: No: Sclera Icterus Cardiovascular: Yes: Regular Rate and Rhythm, Murmur (2/6 systolic murmur at the RSB) Respiratory: Yes: Diminished (at bases b/l. poor inspiratory effort) Gastrointestinal Inspection: Yes: Distention ...Auscultate: Yes: Normoactive Bowel Sounds (higher pitched) ...Palpate: Yes: Firm/Rigid. No: Guarding, Hepatomegaly, Splenomegaly, Tenderness, Tenderness, Rebound ...Percussion: Yes: Tympanitic ...Rectal Exam: Yes: Other (brown ssoft sttol, no melena/gross blood. 24Fr. rectal tube placed without difficulty by Dr. Rocha, lavaged with 1 L NS. Large air somers noted with marked decompression of abdominal distention. Patient turned from left to right lateral decubitus position with continued passage of air and liquid stool) Extremities: Yes: Amputation Labs: CBC WBC 9.8 K/mm3 (4.0-10.0) 11/10/16 21: RBC 3.67 M/mm3 (3.60-5.2) 11/10/16 21: Hgb 11.4 GM/dL (10.7-15.3) 11/10/16 21: Hct 34.8 % (32.4-45.2) D 11/10/16 21: MCV 94.7 fl (80-96) 11/10/16 21: MCH 31.1 pg (25.7-33.7) 11/10/16: MCHC 32.8 g/dl (32.0-36.0) 11/10/16 21: RDW 14.7 % (11.6-15.6) 11/10/16 21: Plt Count 185 K/MM3 (134-434) 11/10/16 21: MPV 10.8 fl (7.5-11.1) 11/10/16 21: Neutrophils % 76.6 % (42.8-82.8) D 11/10/16 21: Lymphocytes % 14.4 % (8-40) D 11/10/16 21: Monocytes % 6.4 % (3.8-10.2) 11/10/16 21: Eosinophils % 1.7 % (0-4.5) 11/10/16 21: Basophils % 0.9 % (0-2.0) 11/10/16 21: CMP Sodium 137 mmol/L (136-145) 11/10/16 21: Potassium 4.6 mmol/L (3.5-5.1) D 11/10/16 21: Chloride 101 mmol/L (98-107) 11/10/16 21: Carbon Dioxide 28 mmol/L (21-32) 11/10/16 21: Anion Gap 8 (8-16) 11/10/16 21: BUN 37 mg/dL (7-18) H 11/10/16 21: Creatinine 0.8 mg/dL (0.55-1.02) 11/10/16 21: Creat Clearance w eGFR > 60 (>60) 11/10/16 21:26 POC Glucometer 97 UNITS (()) 11/11/16 11:27 Random Glucose 174 mg/dL (74-106) H D 11/10/16 21: Calcium 9.4 mg/dL (8.5-10.1) 11/10/16 21: Total Bilirubin < 0.1 mg/dL (0.2-1.0) L D 11/10/16 21: AST 16 U/L (15-37) D 11/10/16 21: ALT 9 U/L (12-78) L D 11/10/16 21: Alkaline Phosphatase 111 U/L (45-117) D 11/10/16 21: Total Protein 6.4 g/dl (6.4-8.2) 11/10/16 21: Albumin 3.2 g/dl (3.4-5.0) L 11/10/16 21:26 Problem List - Problems (1) Pseudoobstruction of colon Assessment/Plan: Assessment: Chronic in nature and patient decompresses markedly with placement of rectal tube. Conservative measures have been opted for by Ms. renae and her family Plan: Rectal tube kept in place. Advised nurse to flush rectal tube with water q 6 hours, rotate patient from left to right lateral decubitus position q 2 hours. Should have rectal tube placement in the halfway as needed with monitoring of abdominal exam Consider elimination of lactulose as part of her bowel regimen as this can contribute to gaseous distention of bowel Unclear need for continued BID PPI. Consider lowering dose to protonix 20mg daily for maintenance as previous history of ? melena/anemia remains unevaluated. Also she remains on dual antiplatelet therapy. She had been evaluated by cardiology on last admission and suggestede single agent therapy with plavix. This may need to be reevaluated. AXR in AM (ordered) Monitor abdominal exam ATTENDING PHYSICIAN STATEMENT I saw and evaluated the patient. I reviewed the resident's note and wrote it directly with her. Case was discussed with Dr. Rocha. I agree with the resident's findings and plan as documented. SUBJECTIVE: See above as the consult was directly written with the resident OBJECTIVE: See above as the consult was directly written with the resident ASSESSMENT AND PLAN: See above Leodan Benítez D.O. Code(s): K59.8 - OTHER SPECIFIED FUNCTIONAL INTESTINAL DISORDERS
[2016-11-11] MEDS: SENNOSIDES 8.6MG TABLET (FP) PO SCH (21:46)
[2016-11-11] MEDS: INSULIN DETEMIR 100 UNITS/ML MDV SQ SCH (21:47)
[2016-11-11] MEDS: DOCUSATE SODIUM 100 MG CAPSULE (FP) PO SCH (21:47)
[2016-11-11] MEDS ORDERED: HEPARIN NA (PORCINE) 5,000 UNITS/ML 1ML VIAL SQ SCH (22:00)
[2016-11-12] MEDS: LEVOTHYROXINE NA 100 MCG TABLET (FP) PO SCH (06:36)
[2016-11-12] MEDS: INSULIN (NOVOLOG) ASPART 100 UNITS/ML 10ML VIAL SQ SCH ×3 (06:37→16:16)
[2016-11-12] MEDS ORDERED: INSULIN DETEMIR 100 UNITS/ML MDV SQ ONE (08:29)
[2016-11-12] MEDS ORDERED: INSULIN (NOVOLOG) ASPART 100 UNITS/ML 10ML VIAL ONE (08:29)
[2016-11-12 08:59] LABS: ALBUMIN 2.8 g/dl (3.4-5.0); ANION GAP 8 (8-16); CALCIUM 8.8 mg/dL (8.5-10.1); CO2 28 mmol/L (21-32); GLUCOSE,RANDOM 56 mg/dL (74-106)
[2016-11-12 09:03] LABS: ALK PHOS 91 U/L (45-117); BILIRUBIN,TOTAL 0.1 mg/dL (0.2-1.0); CREATININE 0.7 mg/dL (0.55-1.02); SGOT/AST 12 U/L (15-37); SGPT/ALT 8 U/L (12-78); TOT PROT 5.7 g/dl (6.4-8.2)
[2016-11-12] MEDS: CARVEDILOL 3.125 MG TABLET (FP) PO SCH ×2 (09:17→22:09)
[2016-11-12] MEDS: PANTOPRAZOLE 20 MG TABLET (FP) PO SCH (09:17)
[2016-11-12] MEDS: MULTIVITAMINS (DAILY MVI) TABLET (FP) PO SCH (09:17)
[2016-11-12] MEDS: FUROSEMIDE 40 MG TABLET (FP) PO SCH (09:17)
[2016-11-12] MEDS: POLYETHYLENE GLYCOL 3350 119 GM BTL PO SCH (09:18)
[2016-11-12] MEDS: POTASSIUM CHLORIDE TABS 20 MEQ TABLET.ER (FP) PO SCH (09:18)
[2016-11-12] MEDS: CLOPIDOGREL BISULFATE 75 MG TABLET (FP) PO SCH (09:18)
[2016-11-12 09:42] LABS: MCH 31.4 pg (25.7-33.7); MCHC 32.9 g/dl (32.0-36.0); MEAN CELL VOLUME 95.6 fl (80-96); MEAN PLT VOLUME 10.2 fl (7.5-11.1); PLATELET COUNT 183 K/MM3 (134-434); RDW 15.1 % (11.6-15.6); WHITE BLOOD COUNT 9.4 K/mm3 (4.0-10.0)
--- NOTE | 2016-11-12 12:57 | PN ---
Progress Note, Physician Chief Complaint: pt examined No complaints feels hungry - Current Medication List Current Medications: Active Medications Carvedilol (Coreg -) 3.125 mg PO BID [facility] Last Admin: 11/12/16 09:17 Dose: 3.125 mg Clopidogrel Bisulfate (Plavix -) 75 mg PO DAILY [facility] Last Admin: 11/12/16 09:18 Dose: 75 mg Docusate Sodium (Colace -) 300 mg PO HS [facility] Last Admin: 11/11/16 21:47 Dose: 300 mg Furosemide (Lasix -) 40 mg PO DAILY [facility] Last Admin: 11/12/16 09:17 Dose: 40 mg Insulin Aspart (Novolog Vial) 1 units SQ TIDAC [facility] PRN Reason: Protocol Last Admin: 11/12/16 12:04 Dose: Not Given Insulin Detemir (Levemir Vial) 10 units SQ [facility] Last Admin: 11/11/16 21:47 Dose: 10 unit Levothyroxine Sodium (Synthroid -) 100 mcg PO ACBK [facility] Last Admin: 11/12/16 06:36 Dose: 100 mcg Magnesium Hydroxide (Milk Of Magnesia -) 30 ml PO Q2D@1000 [facility] Last Admin: 11/11/16 10:38 Dose: 30 ml Multivitamins/Minerals/Vitamin C (Tab-A-Vit -) 1 tab PO DAILY [facility] Last Admin: 11/12/16 09:17 Dose: 1 tab Pantoprazole Sodium (Protonix -) 20 mg PO DAILY [facility] Last Admin: 11/12/16 09:17 Dose: 20 mg Polyethylene Glycol (Miralax (For Daily Use) -) 17 gm PO DAILY [facility] Last Admin: 11/12/16 09:18 Dose: 17 gm Potassium Chloride (K-Dur -) 20 meq PO DAILY [facility] Last Admin: 11/12/16 09:18 Dose: 20 meq Senna (Senna -) 2 tab PO HS [facility] Last Admin: 11/11/16 21:46 Dose: 2 tab - Objective Vital Signs: Vital Signs Temperature 97.5 F L 11/12/16 06:43 Pulse Rate 64 11/12/16 06:43 Respiratory Rate 20 11/12/16 06:43 Blood Pressure 114/72 11/12/16 06:43 O2 Sat by Pulse Oximetry (%) 90 L 11/11/16 09:00 Constitutional: Yes: No Distress, Calm Cardiovascular: Yes: Regular Rate and Rhythm Respiratory: Yes: Diminished Gastrointestinal: Yes: Normal Bowel Sounds, Soft, Distention (decreased). No: Tenderness Edema: Yes Labs: CBC, BMP 11/12/16 06:00 11/12/16 06:00 Problem List - Problems (1) Morbid obesity with BMI of 40.0-44.9, adult Code(s): Z68.41 - BODY MASS INDEX (BMI) 40.0-44.9, ADULT (2) Pseudoobstruction of colon Code(s): K59.8 - OTHER SPECIFIED FUNCTIONAL INTESTINAL DISORDERS (3) Abdominal distention Code(s): R14.0 - ABDOMINAL DISTENSION (GASEOUS) (4) Adynamic ileus Code(s): K56.0 - PARALYTIC ILEUS (5) CAD (coronary artery disease) Code(s): I25.10 - ATHSCL HEART DISEASE OF [place] CORONARY ARTERY W/O ANG PCTRS Qualifiers: Coronary Disease-Associated Artery/Lesion type: [place] artery [place] vs. transplanted heart: [place] heart Associated angina: without angina Qualified Code(s): I25.10 - Atherosclerotic heart disease of [place] coronary artery without angina pectoris (6) Dementia Code(s): F03.90 - UNSPECIFIED DEMENTIA WITHOUT BEHAVIORAL DISTURBANCE Qualifiers: Dementia type: Alzheimer's disease Alzheimer's disease onset: late- onset Dementia behavioral disturbance: without behavioral disturbance Qualified Code(s): G30.1 - Alzheimer's disease with late onset; F02.81 - Dementia in other diseases classified elsewhere with behavioral disturbance Assessment/Plan PLAN continue with plavix, H/HCT stable No signs of GI bleeding GI eval for decompression-- appreciated rectal tube in place FUA noted-- no obstruction continue with meds advance diet Protonix PO frequent turning DVT prophylaxis-- SCD dc in AM , human services case manager to inquire if NH would be able to place rectal tubes or not
--- NOTE | 2016-11-12 14:13 | PN ---
GI Progress Note Subjective: Ms. Beckman without complaints AXR revealed distended transverse colon as well as rectosigmoid - Objective Vital Signs: Vital Signs Temperature 97.5 F L 11/12/16 06:43 Pulse Rate 64 11/12/16 06:43 Respiratory Rate 20 11/12/16 06:43 Blood Pressure 114/72 11/12/16 06:43 O2 Sat by Pulse Oximetry (%) 90 L 11/11/16 09:00 Constitutional: Calm Cardiovascular: Yes: Regular Rate and Rhythm, Murmur Respiratory: Yes: Diminished (at bases b/l) Gastrointestinal Inspection: Yes: Distention ...Auscultate: Yes: Normoactive Bowel Sounds ...Palpate: Yes: Soft ...Rectal Exam: Yes: Other (Rectal tube remains in place, patient turned to Left lateral decubitus position, flushed with [address] of water, liquid stool and copious air exprelled. Abdomen sft) Extremities: Yes: Amputation Labs: CBC, BMP 11/12/16 06:00 11/12/16 06:00 Problem List - Problems (1) Pseudoobstruction of colon Assessment/Plan: Chronic in nature with episodes of acute worsening Colonoscopic decompression been deferred and high likelihoof of recurrence For more terminal carman treatment, consider evaluation by surgeon to discuss options. This has been deferred by the patient and her family in the past as well. Otherwise, continue rectal tube decompression. This would likely need to be done periodically with the rectal tube being flushed as outlined in yesterday's notes. CT scan of the abdomen / pelvis without contrast Code(s): K59.8 - OTHER SPECIFIED FUNCTIONAL INTESTINAL DISORDERS
[2016-11-12] MEDS: SENNOSIDES 8.6MG TABLET (FP) PO SCH (22:08)
[2016-11-12] MEDS: DOCUSATE SODIUM 100 MG CAPSULE (FP) PO SCH (22:08)
[2016-11-12] MEDS: INSULIN DETEMIR 100 UNITS/ML MDV SQ SCH (22:09)
[2016-11-13 06:15] VITALS: TEMP 97.5
[2016-11-13] MEDS ORDERED: INSULIN DETEMIR 100 UNITS/ML MDV SQ ONE (06:38)
[2016-11-13] MEDS: LEVOTHYROXINE NA 100 MCG TABLET (FP) PO SCH (06:40)
[2016-11-13] MEDS: INSULIN (NOVOLOG) ASPART 100 UNITS/ML 10ML VIAL SQ SCH ×2 (06:41→11:47)
--- NOTE | 2016-11-13 10:25 | PN ---
GI Progress Note Subjective: No acute events No abdominal pain. States being hungry CT scan revealed decompressed distal colon - Objective Vital Signs: Vital Signs Temperature 97.5 F L 11/13/16 06:14 Pulse Rate 58 L 11/13/16 06:14 Respiratory Rate 20 11/13/16 06:14 Blood Pressure 142/72 11/13/16 06:14 O2 Sat by Pulse Oximetry (%) 90 L 11/12/16 21:00 Constitutional: Calm Cardiovascular: Yes: Regular Rate and Rhythm, Murmur Gastrointestinal Inspection: Yes: Distention ...Auscultate: Yes: Normoactive Bowel Sounds ...Palpate: Yes: Soft. No: Tenderness ...Percussion: Yes: Tympanitic ...Rectal Exam: Yes: Other (Rectal tube in place. It seemed as though there was stool in the tube. the tube was flushed with saline using bulb syringe. Stool was cleared and air expelled. Abdomen soft) Labs: CBC, BMP 11/12/16 06:00 11/12/16 06:00 - ....Imaging Cat Scan: Report Reviewed, Image Reviewed Problem List - Problems (1) Pseudoobstruction of colon Assessment/Plan: This is a chronic and recurrent problem Conservative measures have been opted for as she has responded to rectal tube decompression. Surgical options have been discussed in the past and declined by patient and her family. If they are willing to discuss this again consider surgical evaluation to discuss ? venting colostomy If rectal tube placement is feasible at the [place], then placement of rectal tube every other day with position change and flushing of the rectal tube to clear stool / allow for decompression could be performed for conservative measures. refer to previous notes regarding flusing and positioning of the patient. Avoid Lactulose as this can be gas forming and add to abdominal distention Miralax 17g daily Senna 2 tabs daily Advised nurse to take rectal tube out today as it has been in from wednesday Code(s): K59.8 - OTHER SPECIFIED FUNCTIONAL INTESTINAL DISORDERS
[2016-11-13] MEDS: POLYETHYLENE GLYCOL 3350 119 GM BTL PO SCH (10:41)
[2016-11-13] MEDS: CLOPIDOGREL BISULFATE 75 MG TABLET (FP) PO SCH (10:41)
[2016-11-13] MEDS: FUROSEMIDE 40 MG TABLET (FP) PO SCH (10:41)
[2016-11-13] MEDS: MULTIVITAMINS (DAILY MVI) TABLET (FP) PO SCH (10:41)
[2016-11-13] MEDS: MAGNESIUM HYDROX 2400MG/30ML ORAL SUSPENSION 30 ML CUP PO SCH (10:41)
[2016-11-13] MEDS: CARVEDILOL 3.125 MG TABLET (FP) PO SCH (10:41)
[2016-11-13] MEDS: POTASSIUM CHLORIDE TABS 20 MEQ TABLET.ER (FP) PO SCH (10:41)
[2016-11-13] MEDS: PANTOPRAZOLE 20 MG TABLET (FP) PO SCH (10:41)
--- NOTE | 2016-11-13 10:41 | DS ---
Physical Examination Vital Signs: Vital Signs Temperature 97.5 F L 11/13/16 06:14 Pulse Rate 58 L 11/13/16 06:14 Respiratory Rate 20 11/13/16 06:14 Blood Pressure 142/72 11/13/16 06:14 O2 Sat by Pulse Oximetry (%) 90 L 11/12/16 21:00 Findings/Remarks: pt seen/ examined. chart reviewed. comfortable no complains Constitutional: Yes: No Distress, Calm Neck: Yes: Supple Cardiovascular: Yes: Regular Rate and Rhythm Respiratory: Yes: CTA Bilaterally Gastrointestinal: Yes: Soft, Abdomen, Obese ...Rectal Exam: Yes: Other (rectal tube +) Edema: No Neurological: Yes: Alert Labs: CBC, BMP 11/12/16 06:00 11/12/16 06:00 Discharge Summary Reason For Visit: PSEUDOOBSTRUCTION OF COLON Current Active Problems Morbid obesity with BMI of 40.0-44.9, adult (Acute) Pseudoobstruction of colon (Acute) Hospital Course: admitted for psuudo - obstruction of colon. rectal tube placed better gi followed GI made following recommendations--Dr. Nunes--Discussed with him. (1) Pseudoobstruction of colon Assessment/Plan: This is a chronic and recurrent problem Conservative measures have been opted for as she has responded to rectal tube decompression. Surgical options have been discussed in the past and declined by patient and her family. If they are willing to discuss this again consider surgical evaluation to discuss ? venting colostomy If rectal tube placement is feasible at the [place], then placement of rectal tube every other day with position change and flushing of the rectal tube to clear stool / allow for decompression could be performed for conservative measures. refer to previous notes regarding flushing and positioning of the patient. Avoid Lactulose as this can be gas forming and add to abdominal distention Miralax 17g daily Senna 2 tabs daily Discussed with nursing staff. Meds reconciled will d/c to skilled nursing today D/c time 35 min in exam/ documenting and coordinating care. Condition: Good - Instructions Referrals: Ebenezer Farris MD [Primary Care Provider] - - Home Medications Comprehensive Discharge Medication List: Ambulatory Orders Carvedilol 3.125 mg PO BID 09/19/15 Cholecalciferol (Vitamin D3) [Vitamin D3] 1,000 unit PO DAILY 09/19/15 Docusate Sodium [Colace -] 300 mg PO HS 09/19/15 Furosemide [Lasix -] 40 mg PO DAILY 09/19/15 Insulin Aspart [Novolog Flexpen] 0 unit SQ ASDIR 09/19/15 Insulin Glargine,Hum.rec.anlog [Lantus Solostar PEN -] 20 units SQ DAILY Levothyroxine [Synthroid -] 100 mcg PO DAILY 09/19/15 Magnesium Hydrox 2400MG/30Ml [Milk of Magnesia -] 30 ml PO Q2D 09/19/15 Multivitamins [Multivit ([facility] Formulary)] 1 tab PO DAILY 09/19/15 Sennosides [Senna] 2 tab PO HS 09/19/15 Potassium Chloride [K-Dur -] 20 meq PO DAILY #30 tablet.er 09/24/15 Pantoprazole Sodium [Protonix -] 40 mg PO BID #60 tab 10/16/16 Aspirin [Aspirin EC] 81 mg PO DAILY 11/11/16 Clopidogrel Bisulfate [Clopidogrel] 75 mg PO DAILY 11/11/16 Heparin - 5,000 unit SQ BID vial 11/13/16 Polyethylene Glycol 3350 [Miralax 119 gm Btl -] 17 gm PO DAILY bottle 11/13/16
[2016-11-13 11:54] VITALS: BP 135/68; PULSE 60
[2016-11-13] MEDS ORDERED: INSULIN SLIDING SCALE (NOVOLOG) 1 VIAL SQ SCH (12:10)
== END 2016-11-13 14:17 | DRG 392 ==
LOC: JER 19:00 → JERBED 23:10 → J8W 11-11 02:30
PROVIDERS: ADMIT Internal Medicine; ATTEND Internal Medicine
DX: K59.8 Other specified functional intestinal disorders (principal); I50.32 Chronic diastolic (congestive) heart failure; I25.10 Atherosclerotic heart disease of native coronary artery without angina pectoris; F03.90 Unspecified dementia, unspecified severity, without behavioral disturbance, psychotic disturbance, mood disturbance, and anxiety; E66.01 Morbid (severe) obesity due to excess calories; Z68.38 Body mass index [BMI] 38.0-38.9, adult
CPT/HCPCS: 36415; 71010-TC; 74000-TC; 74176-TC; 80053; 85025; 85027; 93005; 93010; 99283-25

== ENCOUNTER 2017-03-13 17:09 | Inpatient (IN) | payer OTHER ==
[2017-03-13 18:29] VITALS: BMI 42.9
[2017-03-13] MEDS ORDERED: ONDANSETRON 4 MG/2 ML VIAL IVPB ONE (19:52)
[2017-03-13] MEDS ORDERED: SODIUM CHLORIDE 500 ML IV STA (19:52)
[2017-03-13] MEDS ORDERED: ONDANSETRON 4 MG/2 ML VIAL ONE (20:07)
[2017-03-13 20:41] LABS: BASOPHIL 0.8 % (0-2.0); EOSINOPHIL 1.2 % (0-4.5); MCH 31.7 pg (25.7-33.7); MEAN CELL VOLUME 95.8 fl (80-96); NEUTROPHILS 79.1 % (42.8-82.8); PLATELET COUNT 187 K/MM3 (134-434); RDW 14.2 % (11.6-15.6); WHITE BLOOD COUNT 10.7 K/mm3 (4.0-10.0)
[2017-03-13 20:53] LABS: INR 1.1 (0.82-1.09); PROTHROMBIN TIME (PATIENT) 12.4 SEC (9.98-11.88)
--- NOTE | 2017-03-13 21:09 | PDOC ---
History of Present Illness <Jazmín Jj - Last Filed: 03/14/17 01:56> - History of Present Illness Initial Comments: 03/13/17 21:06 "The patient is an 86 year old female with history of Penny's syndrome, hypertension, hyperlipidemia, DM, atrial fibrillation, CAD, R BKA, and dementia sent from [facility] for approximately 3 days of progressively worsening abdominal distention and LLQ pain. Her LLQ pain is sharp and intermittent, non- radiating. Pt currently denies any pain. Per the patient's daughter at bedside, the patient's abdomen was noted to be slighly distended 3 days ago, but it was still soft. Today her abdominal distention and abdominal pain were noted to be significantly worse, prompting the patient's ED visit. Pt endorses nausea with one episode of vomiting earlier today. She does not have normal bowel movements and requires enemas to pass stool. Her last enema was yesterday, and she reports passing a large amount of stool. 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 PCP: Dr. Ramos GI: Dr. Benítez" <Lewis Little - Last Filed: 03/14/17 03:56> - General Chief Complaint: Pain Stated Complaint: ABDOMINAL DISTENTION Time Seen by Provider: 03/13/17 19:15 Past History <Jazmín Jj - Last Filed: 03/14/17 01:56> - Past Medical History Anemia: Yes Cardiac Disorders: Yes (a-fib, chf, aortic valve disorder) COPD: No CHF: Yes Dementia: Yes Diabetes: Yes GI Disorders: Yes ([place] Syndrome) Thyroid Disease: Yes (Hypothyroid) - Surgical History Orthopedic Surgery: Yes (RT BKA) - Suicide/Smoking/Psychosocial Hx Smoking History: Never smoked Have you smoked in the past 12 months: No If you are a former smoker, when did you quit?: 30yrs Information on smoking cessation initiated: No Hx Alcohol Use: No Drug/Substance Use Hx: No Substance Use Type: None Hx Substance Use Treatment: No <Lewis Little - Last Filed: 03/14/17 03:56> - Past Medical History Allergies/Adverse Reactions: Allergies Allergy/AdvReac Type Severity Reaction Status Date / Time gluten Allergy Severe Verified 11/10/16 19:15 Penicillins Allergy Verified 11/10/16 19:15 vancomycin Allergy Verified 11/10/16 19:15 Home Medications: Ambulatory Orders Carvedilol 3.125 mg PO BID 09/19/15 Cholecalciferol (Vitamin D3) [Vitamin D3] 1,000 unit PO DAILY 09/19/15 Docusate Sodium [Colace -] 300 mg PO HS 09/19/15 Furosemide [Lasix -] 40 mg PO DAILY 09/19/15 Insulin Aspart [Novolog Flexpen] 0 unit SQ ASDIR 09/19/15 Insulin Glargine,Hum.rec.anlog [Lantus Solostar PEN -] 20 units SQ DAILY Levothyroxine [Synthroid -] 100 mcg PO DAILY 09/19/15 Magnesium Hydrox 2400MG/30Ml [Milk of Magnesia -] 30 ml PO Q2D 09/19/15 Multivitamins [Multivit ([facility] Formulary)] 1 tab PO DAILY 09/19/15 Sennosides [Senna] 2 tab PO HS 09/19/15 Potassium Chloride [K-Dur -] 20 meq PO DAILY #30 tablet.er 09/24/15 Pantoprazole Sodium [Protonix -] 40 mg PO BID #60 tab 10/16/16 Aspirin [Aspirin EC] 81 mg PO DAILY 11/11/16 Clopidogrel Bisulfate [Clopidogrel] 75 mg PO DAILY 11/11/16 Heparin - 5,000 unit SQ BID vial 11/13/16 Polyethylene Glycol 3350 [Miralax 119 gm Btl -] 17 gm PO DAILY bottle 11/13/16 Review of Systems - Review of Systems Comments:: 03/13/17 21:07 "GENERAL/CONSTITUTIONAL: No fever or chills. No weakness. HEAD, EYES, EARS, NOSE AND THROAT: No change in vision. No ear pain or discharge. No sore throat. CARDIOVASCULAR: No chest pain or shortness of breath. RESPIRATORY: No cough, wheezing, or hemoptysis. GASTROINTESTINAL: +nausea, abdominal distention, no abdominal pain GENITOURINARY: No dysuria, frequency, or change in urination. MUSCULOSKELETAL: No joint or muscle swelling or pain. No neck or back pain. SKIN: No rash NEUROLOGIC: No headache, vertigo, loss of consciousness, or change in strength/ sensation. ENDOCRINE: No increased thirst. No abnormal weight change. HEMATOLOGIC/LYMPHATIC: No anemia, easy bleeding, or history of blood clots. ALLERGIC/IMMUNOLOGIC: No hives or skin allergy. " <Lewis Little - Last Filed: 03/14/17 03:56> *Physical Exam - Vital Signs Last Vital Signs Temp Pulse Resp BP Pulse Ox 98.7 F 75 17 119/65 96 03/13/17 17:15 03/13/17 17:15 03/13/17 17:15 03/13/17 17:15 03/13/17 17:15 <Jazmín Jj - Last Filed: 03/14/17 01:56> - Vital Signs Last Vital Signs Temp Pulse Resp BP Pulse Ox 98.7 F 75 17 119/65 96 03/13/17 17:15 03/13/17 17:15 03/13/17 17:15 03/13/17 17:15 03/13/17 17:15 - Physical Exam Comments: 03/13/17 21:08 "GENERAL: Awake, alert. Oriented to self, but not time and place. No acute distress. HEAD: No signs of trauma EYES: PERRLA, EOMI, sclera anicteric, conjunctiva clear ENT: Auricles normal inspection, hearing grossly normal, nares patent, oropharynx clear without exudates. +Dry oral mucosa. NECK: Nontender, no stepoffs, Normal ROM, supple, no lymphadenopathy, JVD, or masses LUNGS: CTAB HEART: Regular rate and rhythm, normal S1 and S2, no murmurs, rubs or gallops ABDOMEN: +Abdomen is distended, firm, tympanic to percussion. No abdominal tenderness to palpation. No suprapubic tenderness to palpation. No CVA tenderness to palpation. EXTREMITIES: +R BKA All other extremities: Full ROM, no clubbing or cyanosis. No erythema or tenderness. NEUROLOGICAL: Cranial nerves II through XII intact. 5/5 strength and sensation in all extremities, Normal speech, gait deferred. SKIN: Warm, Dry, normal turgor, no rashes or lesions noted. " <Lewis Little - Last Filed: 03/14/17 03:56> ED Treatment Course - LABORATORY CBC & Chemistry Diagram: 03/13/17 20:30 03/13/17 21:14 - ADDITIONAL ORDERS Additional order review: Laboratory Results 03/13/17 03/13/17 03/13/17 Unknown 21:14 20:30 PT with INR INR PTT (Actin FS) Sodium 137 Potassium 4.4 Chloride 103 Carbon Dioxide 24 Anion Gap 10 BUN 41 H D Creatinine 1.2 H D Creat Clearance w eGFR 42.70 Random Glucose 184 H D Lactic Acid Calcium 9.0 Total Bilirubin 0.3 D AST 23 D ALT 48 D Alkaline Phosphatase 179 H D Total Protein 7.0 D Albumin 3.4 D Lipase 239 Stool Occult Blood Negative Blood Type AB POSITIVE Antibody Screen Negative 03/13/17 03/13/17 03/13/17 20:30 20:30 20:30 PT with INR 12.40 H INR 1.10 PTT (Actin FS) 33.2 Sodium Cancelled Potassium Cancelled Chloride Cancelled Carbon Dioxide Cancelled Anion Gap Cancelled BUN Cancelled Creatinine Cancelled Creat Clearance w eGFR Cancelled Random Glucose Cancelled Lactic Acid Calcium Cancelled Total Bilirubin Cancelled AST Cancelled ALT Cancelled Alkaline Phosphatase Cancelled Total Protein Cancelled Albumin Cancelled Lipase Cancelled Stool Occult Blood Blood Type Antibody Screen 03/13/17 20:24 PT with INR INR PTT (Actin FS) Sodium Potassium Chloride Carbon Dioxide Anion Gap BUN Creatinine Creat Clearance w eGFR Random Glucose Lactic Acid 1.0 Calcium Total Bilirubin AST ALT Alkaline Phosphatase Total Protein Albumin Lipase Stool Occult Blood Blood Type Antibody Screen 03/13/17 20:30 RBC 4.08 MCV 95.8 MCHC 33.0 RDW 14.2 MPV 11.0 Neutrophils % 79.1 Lymphocytes % 13.1 Monocytes % 5.8 Eosinophils % 1.2 Basophils % 0.8 - RADIOLOGY Radiograph Interpretation: 03/14/17 01:12 CT of abdomen and pelvis with contrast, reviewed and interpreted by Imaging Shearing Machine Operator. 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 The patient is at risk for colonic perforation. Bilateral adrenal nodule may be followed up with nonemergent MRI. Multiple splenic lesions maybe secondary to infection, granulomatous disease or metastasis. 12 mm thick pericardial effusion. Mild bilateral renal scarring without hydronephrosis. - Medications Given in the ED: ED Medications Discontinued Medications Generic Name Dose Route Start Last Admin Trade Name Freq PRN Reason Stop Dose Admin Sodium Chloride 500 mls @ 1,000 mls/hr 03/13/17 19:52 03/13/17 20:26 Normal Saline - IV 03/13/17 20:21 1,000 mls/hr ASDIR STA Administration Ondansetron HCl 4 mg 03/13/17 19:52 03/13/17 20:27 Zofran Injection IVPB 03/13/17 19:53 4 mg ONCE ONE Administration <Jazmín Jj - Last Filed: 03/14/17 01:56> - LABORATORY CBC & Chemistry Diagram: 03/13/17 20:30 03/13/17 21:14 - ADDITIONAL ORDERS Additional order review: Laboratory Results 03/13/17 20:24 Lactic Acid 1.0 03/13/17 20:30 RBC 4.08 MCV 95.8 MCHC 33.0 RDW 14.2 MPV 11.0 Neutrophils % 79.1 Lymphocytes % 13.1 Monocytes % 5.8 Eosinophils % 1.2 Basophils % 0.8 - RADIOLOGY Radiology Studies Ordered: Category Date Time Status ABDOMEN & PELVIS CT WITH CONTR [CT] Stat CT Scan 03/13/17 19:51 Ordered ABDOMEN [id number] [RAD] Stat Radiology 03/13/17 19:51 Ordered - Medications Given in the ED: ED Medications Discontinued Medications Generic Name Dose Route Start Last Admin Trade Name Freq PRN Reason Stop Dose Admin Sodium Chloride 500 mls @ 1,000 mls/hr 03/13/17 19:52 03/13/17 20:26 Normal Saline - IV 03/13/17 20:21 1,000 mls/hr ASDIR STA Administration Ondansetron HCl 4 mg 03/13/17 19:52 03/13/17 20:27 Zofran Injection IVPB 03/13/17 19:53 4 mg ONCE ONE Administration <Lewis Little - Last Filed: 03/14/17 03:56> Medical Decision Making - Medical Decision Making 03/14/17 01:14 Placed call to answering service of patient's PCP, Dr. Rachel Farris, at . Awaiting callback from covering physician, Dr. Franks. 03/14/17 01:[address] Farris's answering service at 1:57. Awaiting call back. <Jazmín Jj - Last Filed: 03/14/17 01:56> - Medical Decision Making 03/13/17 21:08 86 F with abdominal distention, concerning for obstruction vs pseudo- obstruction. - Labs - XR, CTAP - GI consult 03/14/17 01:09 CTAP shows air and liquid stool distention of entire colon. Spoke with GI senior market intelligence consultant, Dr. Neves, who recommends administration of 2 fleets enemas, followed by rectal tube placement. Given distention of colon to 14cm and increased risk of perforation, will make surgeon senior market intelligence consultant aware of case as well. 03/14/17 03:55 Dr. Dubois made aware of pt, will follow along. Agrees with GI's plan for enemas and rectal tube. Pt admitted to hospitalist service. Case discussed in detail with admitting physician including history, physical exam and ancillary studies. Admitting physician has assumed care for the patient and will follow all pending diagnostics and complete the evaluation and treatment. <Lewis Little - Last Filed: 03/14/17 03:56> *DC/Admit/Observation/Transfer - Attestations Scribe Attestion: 03/14/17 01:15 Documentation prepared by Jazmín Jj, acting as front office medical assistant for Lewis Little MD. <Jazmín Jj - Last Filed: 03/14/17 01:56> - Discharge Dispostion Admit: Yes - Attestations Physician Attestion: 03/14/17 03:54 I, Dr. Lewis Little MD, attest that this document has been prepared under my direction and personally reviewed by me in its entirety. I further attest, that it accurately reflects all work, treatment, procedures and medical decision -making performed by me. <Lewis Little - Last Filed: 03/14/17 03:56> Diagnosis at time of Disposition: Penny's syndrome - Referrals Referrals: Ebenezer Farris MD [Primary Care Provider] - - Patient Instructions - Post Discharge Activity
[2017-03-13 21:48] LABS: ALBUMIN 3.4 g/dl (3.4-5.0); ALK PHOS 179 U/L (45-117); ANION GAP 10 (8-16); BILIRUBIN,TOTAL 0.3 mg/dL (0.2-1.0); CO2 24 mmol/L (21-32); CREATININE 1.2 mg/dL (0.55-1.02); GLUCOSE,RANDOM 184 mg/dL (74-106); SGOT/AST 23 U/L (15-37); SGPT/ALT 48 U/L (12-78)
[2017-03-13] MEDS ORDERED: SODIUM PHOSPHATE/NA BIPHOS 133 ML ENEMA PR ONE ×2 (22:24→22:25)
--- NOTE | 2017-03-14 04:37 | HP ---
CHIEF COMPLAINT: Abdominal Distention PCP: Dr Marianna Franks HISTORY OF PRESENT ILLNESS: This is a 86 y/o woman with past medical history of [place] Syndrome, Dementia. Who presents to the ED from [facility] with abdominal distention x 3 days. Patient has Dementia unable to obtain HPI. Per ED record: 3 days of progressively worsening abdominal distention and LLQ pain. Her LLQ pain is sharp and intermittent, non-radiating. Pt currently denies any pain. Per the patient's daughter at bedside, the patient's abdomen was noted to be slighly distended 3 days ago, but it was still soft. Today her abdominal distention and abdominal pain were noted to be significantly worse, prompting the patient's ED visit. Pt endorses nausea with one episode of vomiting earlier today. She does not have normal bowel movements and requires enemas to pass stool. Her last enema was yesterday, and she reports passing a large amount of stool. 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 ER course was notable for: (1) CTAP- Cecum dilated 19.4cm (2) WBC 10.7 (3) Lactic Acid 1.0 Recent Travel: None PAST MEDICAL HISTORY: [place] Syndrome Dementia Afib Aortic Stenosis CAD CHF HTN COPD DM PVD Morbid Obesity PAST SURGICAL HISTORY: R- BKA Social History: Smoking: Never Alcohol: None Drugs: None [facility]ides [facility] Family History: Non-contributory Allergies gluten Allergy (Severe, Verified 11/10/16 19:15) Penicillins Allergy (Verified 11/10/16 19:15) vancomycin Allergy (Verified 11/10/16 19:15) HOME MEDICATIONS: Home Medications Medication Instructions Recorded Carvedilol 3.125 mg PO BID 09/19/15 Cholecalciferol (Vitamin D3) 1,000 unit PO DAILY 09/19/15 [Vitamin D3] Docusate Sodium [Colace -] 300 mg PO HS 09/19/15 Furosemide [Lasix -] 40 mg PO DAILY 09/19/15 Insulin Aspart [Novolog Flexpen] 0 unit SQ ASDIR 09/19/15 Insulin Glargine,Hum.rec.anlog 20 units SQ DAILY 09/19/15 [Lantus Solostar PEN -] Levothyroxine [Synthroid -] 100 mcg PO DAILY 09/19/15 Magnesium Hydrox 2400MG/30Ml [Milk 30 ml PO Q2D 09/19/15 of Magnesia -] Multivitamins [Multivit ([facility] 1 tab PO DAILY 09/19/15 Formulary)] Sennosides [Senna] 2 tab PO HS 09/19/15 Potassium Chloride [K-Dur -] 20 meq PO DAILY #30 tablet.er 09/24/15 Pantoprazole Sodium [Protonix -] 40 mg PO BID #60 tab 10/16/16 Aspirin [Aspirin EC] 81 mg PO DAILY 11/11/16 Clopidogrel Bisulfate [Clopidogrel] 75 mg PO DAILY 11/11/16 Heparin - 5,000 unit SQ BID vial 11/13/16 Polyethylene Glycol 3350 [Miralax 17 gm PO DAILY bottle 11/13/16 119 gm Btl -] REVIEW OF SYSTEMS - Unable to obtain -Dementia hx CONSTITUTIONAL: Absent: fever, chills, diaphoresis, generalized weakness, malaise, loss of appetite, weight change HEENT: Absent: rhinorrhea, nasal congestion, throat pain, throat swelling, difficulty swallowing, mouth swelling, ear pain, eye pain, visual changes CARDIOVASCULAR: Absent: chest pain, syncope, palpitations, irregular heart rate, lightheadedness , peripheral edema RESPIRATORY: Absent: cough, shortness of breath, dyspnea with exertion, orthopnea, wheezing, stridor, hemoptysis GASTROINTESTINAL: Absent: abdominal pain, abdominal distension, nausea, vomiting, diarrhea, constipation, melena, hematochezia GENITOURINARY: Absent: dysuria, frequency, urgency, hesitancy, hematuria, flank pain, genital pain MUSCULOSKELETAL: Absent: myalgia, arthralgia, joint swelling, back pain, neck pain SKIN: Absent: rash, itching, pallor HEMATOLOGIC/IMMUNOLOGIC: Absent: easy bleeding, easy bruising, lymphadenopathy, frequent infections ENDOCRINE: Absent: unexplained weight gain, unexplained weight loss, heat intolerance, cold intolerance NEUROLOGIC: Absent: headache, focal weakness or paresthesias, dizziness, unsteady gait, seizure, mental status changes, bladder or bowel incontinence PSYCHIATRIC: Absent: anxiety, depression, suicidal or homicidal ideation, hallucinations. PHYSICAL EXAMINATION Vital Signs - 24 hr 03/13/17 17:15 Temperature 98.7 F Pulse Rate 75 Respiratory 17 Rate Blood Pressure 119/65 O2 Sat by Pulse 96 Oximetry (%) GENERAL: Awake, alert, at baseline, in no acute distress. HEAD: Normal with no signs of trauma. EYES: Pupils equal, round and reactive to light, extraocular movements intact, sclera anicteric, conjunctiva clear. No lid lag. EARS, NOSE, THROAT: Ears normal, nares patent, oropharynx clear without exudates. Dry mucous membranes. NECK: Normal range of motion, supple without lymphadenopathy, JVD, or masses. LUNGS: Breath sounds equal, clear to auscultation bilaterally. No wheezes, and no crackles. No accessory muscle use. HEART: Regular rate and rhythm, normal S1 and S2 without murmur, rub or gallop. ABDOMEN: Firm, LLQ tenderness, distended, hypoactive bowel sounds, no guarding, no rebound, no masses. No hepatomegaly or splenomegaly. MUSCULOSKELETAL: Normal range of motion at all joints. No bony deformities or tenderness. No CVA tenderness. UPPER EXTREMITIES: 2+ pulses, warm, well-perfused. No cyanosis. No clubbing. No peripheral edema. LOWER EXTREMITIES: 2+ pulses, warm, well-perfused. No calf tenderness. No peripheral edema. R- BKA NEUROLOGICAL: Cranial nerves II-XII intact. Normal speech. Gait not observed. PSYCHIATRIC: Cooperative. Good eye contact. Appropriate mood and affect. SKIN: Warm, dry, normal turgor, no rashes or lesions noted, normal capillary refill. Laboratory Results - last 24 hr 03/13/17 03/13/17 03/13/17 20:24 20:30 20:30 WBC 10.7 H RBC 4.08 Hgb 12.9 D Hct 39.1 MCV 95.8 MCH 31.7 MCHC 33.0 RDW 14.2 Plt Count 187 MPV 11.0 Neutrophils % 79.1 Lymphocytes % 13.1 Monocytes % 5.8 Eosinophils % 1.2 Basophils % 0.8 PT with INR 12.40 H INR 1.10 PTT (Actin FS) Sodium Potassium Chloride Carbon Dioxide Anion Gap BUN Creatinine Creat Clearance w eGFR Random Glucose Lactic Acid 1.0 Calcium Total Bilirubin AST ALT Alkaline Phosphatase Total Protein Albumin Lipase Stool Occult Blood Blood Type Antibody Screen 03/13/17 03/13/17 03/13/17 20:30 20:30 20:30 WBC RBC Hgb Hct MCV MCH MCHC RDW Plt Count MPV Neutrophils % Lymphocytes % Monocytes % Eosinophils % Basophils % PT with INR INR PTT (Actin FS) 33.2 Sodium Cancelled Potassium Cancelled Chloride Cancelled Carbon Dioxide Cancelled Anion Gap Cancelled BUN Cancelled Creatinine Cancelled Creat Clearance w eGFR Cancelled Random Glucose Cancelled Lactic Acid Calcium Cancelled Total Bilirubin Cancelled AST Cancelled ALT Cancelled Alkaline Phosphatase Cancelled Total Protein Cancelled Albumin Cancelled Lipase Cancelled Stool Occult Blood Blood Type AB POSITIVE Antibody Screen Negative 03/13/17 03/13/17 21:14 Unknown WBC RBC Hgb Hct MCV MCH MCHC RDW Plt Count MPV Neutrophils % Lymphocytes % Monocytes % Eosinophils % Basophils % PT with INR INR PTT (Actin FS) Sodium 137 Potassium 4.4 Chloride 103 Carbon Dioxide 24 Anion Gap 10 BUN 41 H D Creatinine 1.2 H D Creat Clearance w eGFR 42.70 Random Glucose 184 H D Lactic Acid Calcium 9.0 Total Bilirubin 0.3 D AST 23 D ALT 48 D Alkaline Phosphatase 179 H D Total Protein 7.0 D Albumin 3.4 D Lipase 239 Stool Occult Blood Negative Blood Type Antibody Screen ASSESSMENT/PLAN: This is a 86 y/o woman with a significant medical history Penny Syndrome, CAD , Afib, CHF, Aortic Valve Disorder, HTN, HLD, DM, Hypothyroid, Dementia. Admitted for Pseudocolonic Distention for further evaluation of their emergent condition. Plan: 1. GI: Pseudocolonic Distention - Abdomen is grossly distended with hypoactive BS, +tympany,+TN to LLQ - Appreciate GI Consult- notified by ED attending - Appreciate Surgery Consult- notified by ED attending - Enemas x2-pending - Labs show mild leukocytosis with no Lactic Acidemia r/o mysentric bowel - NPO - Repeat CBC, BMP in am - Monitor vitals 2. Cardiac: CAD//Afib//CHF//HTN//HLD - EKG ordered - [id number] Score 6 - Continue Coreg, Plavix, Lasix - Monitor renal function - Repeat CBC, BMP in am - Chest Xray ordered-pending 3. Endocrinology: DM// Hypothyroid - BGMs - ISS - Continue Levothyroxine 4. Psych: Dementia - Continue to monitor and treat accordingly - Fall Precautions 5. FEN - NS@42ml/hr - Replete lytes prn - NPO 6. DVT Prophylaxis - OOB - SCDs - Heparin SQ Code Status: Full Code Dispo: Requires Inpatient Care Problem List - Problem (1) DVT prophylaxis Code(s): [id number] - (2) Penny's syndrome Code(s): K59.8 - OTHER SPECIFIED FUNCTIONAL INTESTINAL DISORDERS (3) Abdominal distention Code(s): R14.0 - ABDOMINAL DISTENSION (GASEOUS) (4) Adynamic ileus Code(s): K56.0 - PARALYTIC ILEUS (5) Afib Code(s): I48.91 - UNSPECIFIED ATRIAL FIBRILLATION Qualifiers: Atrial fibrillation type: paroxysmal Qualified Code(s): I48.0 - Paroxysmal atrial fibrillation (6) Anemia Code(s): D64.9 - ANEMIA, UNSPECIFIED Qualifiers: Anemia type: unspecified type Qualified Code(s): D64.9 - Anemia, unspecified (7) Aortic stenosis Code(s): I35.0 - NONRHEUMATIC AORTIC (VALVE) STENOSIS (8) CAD (coronary artery disease) Code(s): I25.10 - ATHSCL HEART DISEASE OF [place] CORONARY ARTERY W/O ANG PCTRS Qualifiers: Coronary Disease-Associated Artery/Lesion type: [place] artery [place] vs. transplanted heart: [place] heart Associated angina: without angina Qualified Code(s): I25.10 - Atherosclerotic heart disease of [place] coronary artery without angina pectoris (9) CHF (congestive heart failure) Code(s): I50.9 - HEART FAILURE, UNSPECIFIED Qualifiers: Congestive heart failure type: diastolic Congestive heart failure chronicity: chronic Qualified Code(s): I50.32 - Chronic diastolic (congestive ) heart failure (10) Chronic atrial fibrillation Code(s): I48.2 - CHRONIC ATRIAL FIBRILLATION (11) Dementia Code(s): F03.90 - UNSPECIFIED DEMENTIA WITHOUT BEHAVIORAL DISTURBANCE Qualifiers: Dementia type: Alzheimer's disease Alzheimer's disease onset: late-onset Dementia behavioral disturbance: without behavioral disturbance Qualified Code (s): G30.1 - Alzheimer's disease with late onset; F02.80 - Dementia in other diseases classified elsewhere without behavioral disturbance; F02.80 - Dementia in other diseases classified elsewhere without behavioral disturbance; F02.80 - Dementia in other diseases classified elsewhere without behavioral disturbance (12) HLD (hyperlipidemia) Code(s): E78.5 - HYPERLIPIDEMIA, UNSPECIFIED (13) HTN (hypertension) Code(s): I10 - ESSENTIAL (PRIMARY) HYPERTENSION (14) Hypokalemia Code(s): E87.6 - HYPOKALEMIA (15) IDDM (insulin dependent diabetes mellitus) Code(s): E11.9 - TYPE 2 DIABETES MELLITUS WITHOUT COMPLICATIONS; 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 - New Patient This patient is new to me today: Yes Date on this admission: 03/14/17 - Critical Care Critical Care patient: No
[2017-03-14] MEDS ORDERED: SODIUM CHLORIDE 1,000 ML IV SCH ×2 (04:45→15:30)
[2017-03-14] MEDS ORDERED: HEPARIN NA (PORCINE) 5,000 UNITS/ML 1ML VIAL SQ SCH (06:00)
[2017-03-14 08:38] LABS: BASOPHIL 0.4 % (0-2.0); EOSINOPHIL 1.6 % (0-4.5); MCH 31.3 pg (25.7-33.7); MCHC 32.4 g/dl (32.0-36.0); MEAN CELL VOLUME 96.5 fl (80-96); MEAN PLT VOLUME 10.8 fl (7.5-11.1); NEUTROPHILS 73.9 % (42.8-82.8); PLATELET COUNT 176 K/MM3 (134-434); RDW 14.2 % (11.6-15.6); WHITE BLOOD COUNT 11.3 K/mm3 (4.0-10.0)
[2017-03-14 09:03] LABS: ANION GAP 9 (8-16); CALCIUM 8.4 mg/dL (8.5-10.1); CO2 25 mmol/L (21-32); CREATININE 1.1 mg/dL (0.55-1.02); GLUCOSE,RANDOM 145 mg/dL (74-106)
[2017-03-14] MEDS ORDERED: SODIUM PHOSPHATE/NA BIPHOS 133 ML ENEMA PR ONE (10:57)
[2017-03-14] MEDS: INSULIN (NOVOLOG) ASPART 100 UNITS/ML 10ML VIAL SQ SCH ×2 (11:49→17:50)
--- NOTE | 2017-03-14 12:23 | CONSULT ---
Consult Consult Specialty:: General Surgery Referred by:: Dr. Franks/Don Reason for Consultation:: Penny's with massive colonic distention - History of Present Illness Chief Complaint: abdominal distention, pain History of Present Illness: 86yo morbidly obese F with HTN, HLD, DM, hypothyroidism, CAD, CHF, aortic stenosis, PVD s/p R BKA, dementia and Spencer's syndrome, who was sent from [facility] with increasing abdominal distention over the last 3 days with associated abdominal pain. She normally requires enemas and a bowel regimen for BMs. Per ER note, she had had an enema with large stool output the day before admission, but also had one episode of n/v. In the ER, she got IV fluids, an AXR which showed significant colonic distention, confirmed on CT with air and liquid stool in colon and in rectum. She was afebrile, with mild leukocytosis. Per the patient's daughter Aurelia, by phone, the patient has an appt with Dr. Autsin Benítez, GI, tomorrow, and is well-known to him. She states Dr. Ramos had previously d/c'd lactulose, as it had been contributing to abdominal gas and distention, but she recently discovered that the pt is back on it at [facility]. The patient denies abdominal pain, but is not very responsive to questions. She is resting comfortably. Per nursing, she had 2 enemas but only some liquid brown stool so far. There is a small amount of liquid brown stool in diaper. 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 morbid obesity - Past Surgical History Past Surgical History: Yes: Amputation (right BKA), Colonoscopy, Hysterectomy - Alcohol/Substance Use Hx Alcohol Use: No History of Substance Use: reports: None - Smoking History Smoking history: Former smoker Have you smoked in the past 12 months: No If you are a former smoker, when did you quit?: 30yrs - Social History Usual Living Arrangement: Detention ADL: Support Services History of Recent Travel: No Home Medications - Allergies Allergies/Adverse Reactions: Allergies Allergy/AdvReac Type Severity Reaction Status Date / Time gluten Allergy Severe Verified 11/10/16 19:15 Penicillins Allergy Verified 11/10/16 19:15 vancomycin Allergy Verified 11/10/16 19:15 - Home Medications Home Medications: Ambulatory Orders Carvedilol 3.125 mg PO BID 09/19/15 Cholecalciferol (Vitamin D3) [Vitamin D3] 1,000 unit PO DAILY 09/19/15 Docusate Sodium [Colace -] 300 mg PO HS 09/19/15 Furosemide [Lasix -] 40 mg PO DAILY 09/19/15 Insulin Aspart [Novolog Flexpen] 0 unit SQ ASDIR 09/19/15 Insulin Glargine,Hum.rec.anlog [Lantus Solostar PEN -] 20 units SQ DAILY Levothyroxine [Synthroid -] 100 mcg PO DAILY 09/19/15 Magnesium Hydrox 2400MG/30Ml [Milk of Magnesia -] 30 ml PO Q2D 09/19/15 Multivitamins [Multivit ([facility] Formulary)] 1 tab PO DAILY 09/19/15 Sennosides [Senna] 2 tab PO HS 09/19/15 Potassium Chloride [K-Dur -] 20 meq PO DAILY #30 tablet.er 09/24/15 Pantoprazole Sodium [Protonix -] 40 mg PO BID #60 tab 10/16/16 Aspirin [Aspirin EC] 81 mg PO DAILY 11/11/16 Clopidogrel Bisulfate [Clopidogrel] 75 mg PO DAILY 11/11/16 Heparin - 5,000 unit SQ BID vial 11/13/16 Polyethylene Glycol 3350 [Miralax 119 gm Btl -] 17 gm PO DAILY bottle 11/13/16 Family Disease History - Family Disease History Family History: Unable to Obtain (dementia) Review of Systems Unable to obtain ROS, reason: dementia/ltd - Review of Systems Gastrointestinal: reports: Abdominal Pain (reported by daughter), Bloating ( worse with lactulose per daughter), Constipation (needs enemas for BMs) Neurological: reports: Confusion, Pre-Existing Deficit (dementia) Physical Exam Vital Signs: Vital Signs Temperature 97.4 F L 03/14/17 10:00 Pulse Rate 75 03/14/17 10:00 Respiratory Rate 20 03/14/17 10:00 Blood Pressure 122/59 03/14/17 10:00 O2 Sat by Pulse Oximetry (%) 93 L 03/14/17 09:00 Constitutional: Yes: No Distress, Calm, Obese (morbidly) Eyes: Yes: Conjunctiva Clear, EOM Intact HENT: Yes: Atraumatic, Normocephalic Neck: Yes: Supple, Trachea Midline Cardiovascular: Yes: Pulse Irregular (difficult to hear heart sounds), Murmur. No: Bradycardia, Tachycardia Respiratory: Yes: Regular, CTA Bilaterally (did not take deep breaths - difficult to hear but clear) Gastrointestinal: Yes: Soft, Abdomen, Obese, Distention (massively (prior to rectal tube, decreased after)). No: Tenderness (denies pain or tenderness) ...Rectal Exam: Yes: Sphincter Tone Normal, Other (few external skin tags, small amount soft/liquid brown stool in vault and in diaper, no gross blood) Renal/: No: CVA Tenderness - Left, CVA Tenderness - Right Musculoskeletal: No: Joint Stiffness, Joint Swelling Extremities: Yes: Amputation (R BKA). No: Cool, Cyanosis Edema: No Peripheral Pulses WNL: No (could not find L DP pulse; s/p R BKA) Integumentary: Yes: Venous Stasis Changes (LLE). No: Jaundice, Rash Neurological: Yes: Alert, Confusion (could or would not answer most questions), Lethargy (somewhat), Pre-Existing Deficit (dementia) Psychiatric: Yes: Alert. No: Oriented (not fully, x1 per nursing) Labs: CBC, BMP 03/14/17 07:49 03/14/17 07:49 CMP Sodium 137 mmol/L (136-145) 03/14/17 07:49 Potassium 4.2 mmol/L (3.5-5.1) 03/14/17 07:49 Chloride 103 mmol/L (98-107) 03/14/17 07:49 Carbon Dioxide 25 mmol/L (21-32) 03/14/17 07:49 Anion Gap 9 (8-16) 03/14/17 07:49 BUN 49 mg/dL (7-18) H 03/14/17 07:49 Creatinine 1.1 mg/dL (0.55-1.02) H 03/14/17 07:49 Creat Clearance w eGFR 42.70 (>60) 03/13/17 21:14 POC Glucometer 133 UNITS (80-120) 03/14/17 11:42 Random Glucose 145 mg/dL (74-106) H D 03/14/17 07:49 Lactic Acid 1.0 mmol/L (0.4-2.0) 03/13/17 20:24 Calcium 8.4 mg/dL (8.5-10.1) L 03/14/17 07:49 Total Bilirubin 0.3 mg/dL (0.2-1.0) D 03/13/17 21:14 AST 23 U/L (15-37) D 03/13/17 21:14 ALT 48 U/L (12-78) D 03/13/17 21:14 Alkaline Phosphatase 179 U/L (45-117) H D 03/13/17 21:14 Total Protein 7.0 g/dl (6.4-8.2) D 03/13/17 21:14 Albumin 3.4 g/dl (3.4-5.0) D 03/13/17 21:14 Lipase 239 U/L (73-393) 03/13/17 21:14 INR, PTT INR 1.10 (0.82-1.09) 03/13/17 20:30 Imaging - Results X-ray: Report Reviewed, Image Reviewed Cat Scan: Report Reviewed (massive colonic distention with air/liquid in colon and rectum), Image Reviewed Problem List - Problems (1) Spencer's syndrome Assessment/Plan: admitted to medicine NPO for now seen by Dr. Neves, GI per daughter, pt is known to Dr. Austin Benítez and has appt with him tomorrow rectal tube inserted at bedside (24Fr red rubber catheter with 2 extra holes cut in tip) without difficulty, with evacuation of large amount of gas secured with silk tape to buttock will get Fleet's enemas through tube to assist with evacuating remaining stool trend labs, watch lytes when back on home meds, would d/c lactulose, as it seems to contribute significantly to gas formation and recurrent distention per daughter pt is DNR by paperwork from MD and per daughter will follow with you Code(s): K59.8 - OTHER SPECIFIED FUNCTIONAL INTESTINAL DISORDERS (2) Secondary chronic pseudo-obstruction of intestine Code(s): K56.0 - PARALYTIC ILEUS (3) Chronic atrial fibrillation Assessment/Plan: Pt on ASA, plavix at [facility] Code(s): I48.2 - CHRONIC ATRIAL FIBRILLATION (4) CAD (coronary artery disease) Code(s): I25.10 - ATHSCL HEART DISEASE OF [place] CORONARY ARTERY W/O ANG PCTRS Qualifiers: Coronary Disease-Associated Artery/Lesion type: [place] artery [place] vs. transplanted heart: [place] heart Associated angina: without angina Qualified Code(s): I25.10 - Atherosclerotic heart disease of [place] coronary artery without angina pectoris (5) CHF (congestive heart failure) Assessment/Plan: Carvedilol at [facility] Code(s): I50.9 - HEART FAILURE, UNSPECIFIED Qualifiers: Congestive heart failure type: diastolic Congestive heart failure chronicity: chronic Qualified Code(s): I50.32 - Chronic diastolic (congestive ) heart failure (6) Aortic stenosis Code(s): I35.0 - NONRHEUMATIC AORTIC (VALVE) STENOSIS Qualifiers: Cardiac valve disease etiology: etiology unspecified Qualified Code(s): I35.0 - Nonrheumatic aortic (valve) stenosis (7) Hypothyroid Assessment/Plan: Synthroid at [facility] Code(s): E03.9 - HYPOTHYROIDISM, UNSPECIFIED Qualifiers: Hypothyroidism type: acquired Qualified Code(s): E03.9 - Hypothyroidism, unspecified (8) Dementia Assessment/Plan: daughter is POA Code(s): F03.90 - UNSPECIFIED DEMENTIA WITHOUT BEHAVIORAL DISTURBANCE Qualifiers: Dementia type: Alzheimer's disease Alzheimer's disease onset: late-onset Dementia behavioral disturbance: without behavioral disturbance Qualified Code (s): G30.1 - Alzheimer's disease with late onset; F02.80 - Dementia in other diseases classified elsewhere without behavioral disturbance; F02.80 - Dementia in other diseases classified elsewhere without behavioral disturbance; F02.80 - Dementia in other diseases classified elsewhere without behavioral disturbance (9) HLD (hyperlipidemia) Code(s): E78.5 - HYPERLIPIDEMIA, UNSPECIFIED Qualifiers: Hyperlipidemia type: unspecified Qualified Code(s): E78.5 - Hyperlipidemia , unspecified (10) HTN (hypertension) Code(s): I10 - ESSENTIAL (PRIMARY) HYPERTENSION Qualifiers: Hypertension type: essential hypertension Qualified Code(s): I10 - Essential (primary) hypertension (11) Morbid obesity Code(s): E66.01 - MORBID (SEVERE) OBESITY DUE TO EXCESS CALORIES
[2017-03-14] MEDS ORDERED: SODIUM CHLORIDE 500 ML IV ONE (13:40)
[2017-03-14] MEDS ORDERED: BISACODYL 10 MG SUPP.RECT RC PRN (13:49)
[2017-03-14] MEDS: LEVOFLOXACIN 500 MG IVPB 500 MG/100 ML BAG IVPB SCH (16:25)
--- NOTE | 2017-03-14 16:35 | CON.GI ---
Consult Consult Specialty:: Gastroenterology Referred by:: hospitalist - History of Present Illness History of Present Illness: 86 y/o F with multiple admissions for colonic pseudo-obstruction was admitted because of worsening abdominal distention.There were no reports of nausea and vomiting. In the ER, the FUA revealed markedly dilated colon. The patient underwent rectal tube insertion by Dr Gipson this morning.Good passage of air was accomplished. 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 morbid obesity - Past Surgical History Past Surgical History: Yes: Amputation (right BKA), Colonoscopy, Hysterectomy - Alcohol/Substance Use Hx Alcohol Use: No History of Substance Use: reports: None - Smoking History Smoking history: Former smoker Have you smoked in the past 12 months: No If you are a former smoker, when did you quit?: 30yrs - Social History Usual Living Arrangement: [facility] ADL: Support Services History of Recent Travel: No Home Medications - Allergies Allergies/Adverse Reactions: Allergies Allergy/AdvReac Type Severity Reaction Status Date / Time gluten Allergy Severe Verified 11/10/16 19:15 Penicillins Allergy Verified 11/10/16 19:15 vancomycin Allergy Verified 11/10/16 19:15 - Home Medications Home Medications: Ambulatory Orders Carvedilol 3.125 mg PO BID 09/19/15 Cholecalciferol (Vitamin D3) [Vitamin D3] 1,000 unit PO DAILY 09/19/15 Docusate Sodium [Colace -] 300 mg PO HS 09/19/15 Furosemide [Lasix -] 40 mg PO DAILY 09/19/15 Insulin Aspart [Novolog Flexpen] 0 unit SQ ASDIR 09/19/15 Insulin Glargine,Hum.rec.anlog [Lantus Solostar PEN -] 20 units SQ DAILY Levothyroxine [Synthroid -] 100 mcg PO DAILY 09/19/15 Magnesium Hydrox 2400MG/30Ml [Milk of Magnesia -] 30 ml PO Q2D 09/19/15 Multivitamins [Multivit ([facility] Formulary)] 1 tab PO DAILY 09/19/15 Sennosides [Senna] 2 tab PO HS 09/19/15 Potassium Chloride [K-Dur -] 20 meq PO DAILY #30 tablet.er 09/24/15 Pantoprazole Sodium [Protonix -] 40 mg PO BID #60 tab 10/16/16 Aspirin [Aspirin EC] 81 mg PO DAILY 11/11/16 Clopidogrel Bisulfate [Clopidogrel] 75 mg PO DAILY 11/11/16 Heparin - 5,000 unit SQ BID vial 11/13/16 Polyethylene Glycol 3350 [Miralax 119 gm Btl -] 17 gm PO DAILY bottle 11/13/16 Review of Systems - Review of Systems Gastrointestinal: reports: Other (distention) Physical Exam-GI Vital Signs: Vital Signs Temperature 97.9 F 03/14/17 14:30 Pulse Rate 60 03/14/17 14:30 Respiratory Rate 20 03/14/17 14:30 Blood Pressure 117/49 03/14/17 14:30 O2 Sat by Pulse Oximetry (%) 93 L 03/14/17 09:00 Constitutional: Yes: Obese Eyes: Yes: Conjunctiva Clear HENT: Yes: Atraumatic Neck: Yes: Trachea Midline Cardiovascular: Yes: Regular Rate and Rhythm Respiratory: Yes: CTA Bilaterally Gastrointestinal Inspection: Yes: Distention ...Auscultate: Yes: Hypoactive Bowel Sounds ...Palpate: Yes: Soft, Tenderness (--diffuse). No: Guarding, Hepatomegaly, Mass , Pulsatile Mass ...Percussion: Yes: Tympanitic Labs: CBC, BMP 03/14/17 07:49 03/14/17 07:49 INR, PTT INR 1.10 (0.82-1.09) 03/13/17 20:30 Home Medications Medication Instructions Recorded Carvedilol 3.125 mg PO BID 09/19/15 Cholecalciferol (Vitamin D3) 1,000 unit PO DAILY 09/19/15 [Vitamin D3] Docusate Sodium [Colace -] 300 mg PO HS 09/19/15 Furosemide [Lasix -] 40 mg PO DAILY 09/19/15 Insulin Aspart [Novolog Flexpen] 0 unit SQ ASDIR 09/19/15 Insulin Glargine,Hum.rec.anlog 20 units SQ DAILY 09/19/15 [Lantus Solostar PEN -] Levothyroxine [Synthroid -] 100 mcg PO DAILY 09/19/15 Magnesium Hydrox 2400MG/30Ml [Milk 30 ml PO Q2D 09/19/15 of Magnesia -] Multivitamins [Multivit ([facility] 1 tab PO DAILY 09/19/15 Formulary)] Sennosides [Senna] 2 tab PO HS 09/19/15 Potassium Chloride [K-Dur -] 20 meq PO DAILY #30 tablet.er 09/24/15 Pantoprazole Sodium [Protonix -] 40 mg PO BID #60 tab 10/16/16 Aspirin [Aspirin EC] 81 mg PO DAILY 11/11/16 Clopidogrel Bisulfate [Clopidogrel] 75 mg PO DAILY 11/11/16 Heparin - 5,000 unit SQ BID vial 11/13/16 Polyethylene Glycol 3350 [Miralax 17 gm PO DAILY bottle 11/13/16 119 gm Btl -] Problem List - Problems (1) Pseudoobstruction of colon Assessment/Plan: R> maintain rectal tube, apply enemas via rectal tube aas ordered repeat FUA Code(s): K59.8 - OTHER SPECIFIED FUNCTIONAL INTESTINAL DISORDERS
[2017-03-14] MEDS: DEXTROSE 5%-NORMAL SALINE 1,000 ML IV SCH (18:30)
[2017-03-14] MEDS: HEPARIN NA (PORCINE) 5,000 UNITS/ML 1ML VIAL SQ SCH (21:21)
[2017-03-15] MEDS: INSULIN (NOVOLOG) ASPART 100 UNITS/ML 10ML VIAL SQ SCH ×3 (06:02→16:30)
[2017-03-15] MEDS: DEXTROSE 5%-NORMAL SALINE 1,000 ML IV SCH ×2 (08:29→12:56)
[2017-03-15] MEDS: HEPARIN NA (PORCINE) 5,000 UNITS/ML 1ML VIAL SQ SCH ×2 (10:12→21:15)
[2017-03-15] MEDS: LEVOFLOXACIN 500 MG IVPB 500 MG/100 ML BAG IVPB SCH (10:12)
--- NOTE | 2017-03-15 12:20 | PN ---
Progress Note, Physician Chief Complaint: Events noted Pt known to me from previous admissions Awake, no distress Has rectal tube - Current Medication List Current Medications: Active Medications Bisacodyl (Dulcolax Suppository -) 10 mg RC DAILY PRN PRN Reason: CONSTIPATION Heparin Sodium (Porcine) (Heparin -) 5,000 unit SQ BID [facility] Last Admin: 03/15/17 10:12 Dose: 5,000 unit Levofloxacin (Levaquin 500 Mg Premixed Ivpb -) 500 mg in 100 mls @ 100 mls/hr IVPB DAILY [facility] Last Admin: 03/15/17 10:12 Dose: 100 mls/hr Insulin Aspart (Novolog Vial) 0 units SQ TIDAC [facility] PRN Reason: Protocol Last Admin: 03/15/17 06:02 Dose: 2 units - Objective Vital Signs: Vital Signs Temperature 97.4 F L 03/15/17 08:34 Pulse Rate 60 03/15/17 08:34 Respiratory Rate 16 03/15/17 08:34 Blood Pressure 104/44 03/15/17 08:34 O2 Sat by Pulse Oximetry (%) 95 03/14/17 21:00 Constitutional: Yes: No Distress Cardiovascular: Yes: Regular Rate and Rhythm Respiratory: Yes: Diminished Gastrointestinal: Yes: Normal Bowel Sounds, Soft, Abdomen, Obese, Distention. No: Tenderness Edema: Yes Labs: CBC, BMP 03/14/17 07:49 03/14/17 07:49 INR, PTT INR 1.10 (0.82-1.09) 03/13/17 20:30 Problem List - Problems (1) Hypothyroid Code(s): E03.9 - HYPOTHYROIDISM, UNSPECIFIED Qualifiers: Hypothyroidism type: acquired Qualified Code(s): E03.9 - Hypothyroidism, unspecified (2) [place]'s syndrome Code(s): K59.8 - OTHER SPECIFIED FUNCTIONAL INTESTINAL DISORDERS (3) Pseudoobstruction of colon Code(s): K59.8 - OTHER SPECIFIED FUNCTIONAL INTESTINAL DISORDERS (4) Abdominal distention Code(s): R14.0 - ABDOMINAL DISTENSION (GASEOUS) (5) Adynamic ileus Code(s): K56.0 - PARALYTIC ILEUS (6) Anemia Code(s): D64.9 - ANEMIA, UNSPECIFIED Qualifiers: Anemia type: unspecified type Qualified Code(s): D64.9 - Anemia, unspecified (7) Aortic stenosis Code(s): I35.0 - NONRHEUMATIC AORTIC (VALVE) STENOSIS Qualifiers: Cardiac valve disease etiology: etiology unspecified Qualified Code(s): I35.0 - Nonrheumatic aortic (valve) stenosis (8) CAD (coronary artery disease) Code(s): I25.10 - ATHSCL HEART DISEASE OF [place] CORONARY ARTERY W/O ANG PCTRS Qualifiers: Coronary Disease-Associated Artery/Lesion type: [place] artery [place] vs. transplanted heart: [place] heart Associated angina: without angina Qualified Code(s): I25.10 - Atherosclerotic heart disease of [place] coronary artery without angina pectoris Assessment/Plan PLAN Pt more awake today will attempts puree diet decrease iv fluids pt's BP is better now on empiric antibiotics as her BP was low yesterday, r/o sepsis cultures pending afebrile CXR does not show infiltrate If cultures negative, will dc antibiotics Pt usually sees Dr Carlos Alberto Ramos while shes here in the hospital-- will consult him continue with current management ' frequent turning
--- NOTE | 2017-03-15 14:21 | EKG ---
Test Reason : Blood Pressure : / mmHG Vent. Rate : 075 BPM Atrial Rate : 075 BPM P-R Int : 196 ms QRS Dur : 150 ms QT Int : 438 ms P-R-T Axes : 095 -48 102 degrees QTc Int : 489 ms NORMAL SINUS RHYTHM LEFT BUNDLE BRANCH BLOCK ABNORMAL ECG WHEN COMPARED WITH ECG OF 10-NOV-2016 23:56, PREMATURE VENTRICULAR COMPLEXES ARE NO LONGER PRESENT Confirmed by HIRO OBRIEN MD ([id number]) on 03/15/2017 2:21:47 PM Referred By: Confirmed By:HIRO OBRIEN MD
--- NOTE | 2017-03-15 18:29 | PN ---
Progress Note, Physician Chief Complaint: abdominal distention History of Present Illness: No overnight events. Not much stool or gas today. Just had AXR. Has tolerated pureed diet. States her belly feels "ok." Not usually quite this big still, but she is not sure. Rectal tube in place. AXR yesterday consistent with somewhat decreased colonic distention but still with dilated loops despite rectal tube. Formal read still pending. No abdominal pain. - Current Medication List Current Medications: Active Medications Aspirin (Ecotrin -) 81 mg PO DAILY [facility] Bisacodyl (Dulcolax Suppository -) 10 mg RC DAILY PRN PRN Reason: CONSTIPATION Carvedilol (Coreg -) 3.125 mg PO BID [facility] Clopidogrel Bisulfate (Plavix -) 75 mg PO DAILY [facility] Heparin Sodium (Porcine) (Heparin -) 5,000 unit SQ BID [facility] Last Admin: 03/15/17 10:12 Dose: 5,000 unit Levofloxacin (Levaquin 500 Mg Premixed Ivpb -) 500 mg in 100 mls @ 100 mls/hr IVPB DAILY [facility] Last Admin: 03/15/17 10:12 Dose: 100 mls/hr Dextrose/Sodium Chloride (D5-Ns -) 1,000 mls @ 60 mls/hr IV ASDIR [facility] Last Admin: 03/15/17 12:56 Dose: 60 mls/hr Insulin Aspart (Novolog Vial) 0 units SQ TIDAC [facility] PRN Reason: Protocol Last Admin: 03/15/17 12:55 Dose: 2 units Levothyroxine Sodium (Synthroid -) 100 mcg PO DAILY@0700 [facility] - Objective Vital Signs: Vital Signs Temperature 98.4 F 03/15/17 14:38 Pulse Rate 68 03/15/17 14:38 Respiratory Rate 20 03/15/17 14:38 Blood Pressure 111/43 03/15/17 14:38 O2 Sat by Pulse Oximetry (%) 95 03/15/17 09:00 Constitutional: Yes: No Distress, Calm, Obese Gastrointestinal: Yes: Soft, Abdomen, Obese, Distention (less than initially, but still with moderate distention). No: Tenderness ...Rectal Exam: Yes: Other (rectal tube in place, no gas evacuation with abdominal palpation in left or right decubitus positions or supine) Genitourinary: Yes: Incontinence (diaper in place). No: CVA Tenderness - Left, CVA Tenderness - Right Musculoskeletal: Yes: Other (moves relatively well, can help with rolling and moving in bed) Extremities: Yes: Amputation (right BKA). No: Cool, Cyanosis Integumentary: Yes: Venous Stasis Changes (LLE). No: Rash Neurological: Yes: Alert (more than yesterday), Oriented (not fully) Labs: no new labs - ....Imaging X-ray: Image Reviewed (still with some dilated colonic loops, rectal tube in place) Problem List - Problems (1) Penny's syndrome Assessment/Plan: Pt without abdominal pain or tenderness tolerating diet continue rectal tube for now trend labs, watch lytes when back on home meds, would d/c lactulose, as it seems to contribute significantly to gas formation and recurrent distention per daughter Code(s): K59.8 - OTHER SPECIFIED FUNCTIONAL INTESTINAL DISORDERS (2) Secondary chronic pseudo-obstruction of intestine Code(s): K56.0 - PARALYTIC ILEUS (3) Chronic atrial fibrillation Assessment/Plan: Pt on ASA, plavix at [facility] Code(s): I48.2 - CHRONIC ATRIAL FIBRILLATION (4) CAD (coronary artery disease) Code(s): I25.10 - ATHSCL HEART DISEASE OF [place] CORONARY ARTERY W/O ANG PCTRS Qualifiers: Coronary Disease-Associated Artery/Lesion type: [place] artery [place] vs. transplanted heart: [place] heart Associated angina: without angina Qualified Code(s): I25.10 - Atherosclerotic heart disease of [place] coronary artery without angina pectoris (5) CHF (congestive heart failure) Assessment/Plan: Carvedilol at [facility] Code(s): I50.9 - HEART FAILURE, UNSPECIFIED Qualifiers: Congestive heart failure type: diastolic Congestive heart failure chronicity: chronic Qualified Code(s): I50.32 - Chronic diastolic (congestive ) heart failure (6) Aortic stenosis Code(s): I35.0 - NONRHEUMATIC AORTIC (VALVE) STENOSIS Qualifiers: Cardiac valve disease etiology: etiology unspecified Qualified Code(s): I35.0 - Nonrheumatic aortic (valve) stenosis (7) Hypothyroid Assessment/Plan: Synthroid at [facility] Code(s): E03.9 - HYPOTHYROIDISM, UNSPECIFIED Qualifiers: Hypothyroidism type: acquired Qualified Code(s): E03.9 - Hypothyroidism, unspecified (8) Dementia Assessment/Plan: daughter is POA Code(s): F03.90 - UNSPECIFIED DEMENTIA WITHOUT BEHAVIORAL DISTURBANCE Qualifiers: Dementia type: Alzheimer's disease Alzheimer's disease onset: late-onset Dementia behavioral disturbance: without behavioral disturbance Qualified Code (s): G30.1 - Alzheimer's disease with late onset; F02.80 - Dementia in other diseases classified elsewhere without behavioral disturbance; F02.80 - Dementia in other diseases classified elsewhere without behavioral disturbance; F02.80 - Dementia in other diseases classified elsewhere without behavioral disturbance (9) HLD (hyperlipidemia) Code(s): E78.5 - HYPERLIPIDEMIA, UNSPECIFIED Qualifiers: Hyperlipidemia type: unspecified Qualified Code(s): E78.5 - Hyperlipidemia , unspecified (10) HTN (hypertension) Code(s): I10 - ESSENTIAL (PRIMARY) HYPERTENSION Qualifiers: Hypertension type: essential hypertension Qualified Code(s): I10 - Essential (primary) hypertension (11) Morbid obesity Code(s): E66.01 - MORBID (SEVERE) OBESITY DUE TO EXCESS CALORIES
[2017-03-15] MEDS: CARVEDILOL 3.125 MG TABLET (FP) PO SCH (21:15)
[2017-03-16] MEDS: DEXTROSE 5%-NORMAL SALINE 1,000 ML IV SCH (04:20)
[2017-03-16] MEDS: INSULIN (NOVOLOG) ASPART 100 UNITS/ML 10ML VIAL SQ SCH ×3 (06:06→17:34)
[2017-03-16] MEDS: LEVOTHYROXINE NA 100 MCG TABLET (FP) PO SCH (06:06)
[2017-03-16] MEDS ORDERED: INSULIN (NOVOLOG) ASPART 100 UNITS/ML 10ML VIAL ONE (07:03)
[2017-03-16] MEDS: CLOPIDOGREL BISULFATE 75 MG TABLET (FP) PO SCH (09:58)
[2017-03-16] MEDS: CARVEDILOL 3.125 MG TABLET (FP) PO SCH ×4 (09:58→22:48)
[2017-03-16] MEDS: HEPARIN NA (PORCINE) 5,000 UNITS/ML 1ML VIAL SQ SCH ×2 (09:58→22:48)
[2017-03-16] MEDS: ASPIRIN COATED 81 MG TABLET.EC PO SCH (09:58)
[2017-03-16] MEDS: LEVOFLOXACIN 500 MG IVPB 500 MG/100 ML BAG IVPB SCH (09:58)
--- NOTE | 2017-03-16 11:04 | PN ---
Progress Note, Physician Chief Complaint: abdominal distention History of Present Illness: No overnight events. Small amount of soft brown stool just around tube. Has tolerated pureed diet. States her belly feels "ok." No abdominal pain. Rectal tube in place. AXR yesterday still with dilated colon loops despite rectal tube , though sigmoid is somewhat decompressed. - Current Medication List Current Medications: Active Medications Aspirin (Ecotrin -) 81 mg PO DAILY [facility] Last Admin: 03/16/17 09:58 Dose: 81 mg Bisacodyl (Dulcolax Suppository -) 10 mg RC DAILY PRN PRN Reason: CONSTIPATION Carvedilol (Coreg -) 3.125 mg PO BID [facility] Last Admin: 03/16/17 10:04 Dose: Not Given Clopidogrel Bisulfate (Plavix -) 75 mg PO DAILY [facility] Last Admin: 03/16/17 09:58 Dose: 75 mg Heparin Sodium (Porcine) (Heparin -) 5,000 unit SQ BID [facility] Last Admin: 03/16/17 09:58 Dose: 5,000 unit Levofloxacin (Levaquin 500 Mg Premixed Ivpb -) 500 mg in 100 mls @ 100 mls/hr IVPB DAILY [facility] Last Admin: 03/16/17 09:58 Dose: 100 mls/hr Dextrose/Sodium Chloride (D5-Ns -) 1,000 mls @ 60 mls/hr IV ASDIR [facility] Last Admin: 03/16/17 04:20 Dose: 60 mls/hr Insulin Aspart (Novolog Vial) 0 units SQ TIDAC [facility] PRN Reason: Protocol Last Admin: 03/16/17 06:06 Dose: 4 units Levothyroxine Sodium (Synthroid -) 100 mcg PO DAILY@0700 [facility] Last Admin: 03/16/17 06:06 Dose: 100 mcg - Objective Vital Signs: Vital Signs Temperature 97.5 F L 03/16/17 06:00 Pulse Rate 55 L 03/16/17 10:05 Respiratory Rate 18 03/16/17 10:05 Blood Pressure 136/70 03/16/17 10:05 O2 Sat by Pulse Oximetry (%) 98 03/15/17 21:00 Constitutional: Yes: No Distress, Calm, Obese Gastrointestinal: Yes: Soft, Abdomen, Obese, Distention. No: Tenderness ...Rectal Exam: Yes: Other (rectal tube in place, small amt soft brown stool present but no sig BM, no gas evacuating with abdominal palpation in supine or left lat decub positions) Genitourinary: Yes: Incontinence. No: Hematuria Extremities: Yes: Amputation (R BKA). No: Cool Integumentary: Yes: Venous Stasis Changes (LLE). No: Rash Neurological: Yes: Alert, Confusion (baseline dementia) Labs: no new labs - ....Imaging X-ray: Report Reviewed (from last 2 days), Image Reviewed Problem List - Problems (1) [place]'s syndrome Assessment/Plan: Pt without abdominal pain or tenderness tolerating diet continue rectal tube for now Dr. Benítez to see ? decompressive colonoscopy for residual colonic distention? trend labs, watch lytes when back on home meds, would d/c lactulose, as it seems to contribute significantly to gas formation and recurrent distention per daughter Code(s): K59.8 - OTHER SPECIFIED FUNCTIONAL INTESTINAL DISORDERS (2) Secondary chronic pseudo-obstruction of intestine Code(s): K56.0 - PARALYTIC ILEUS (3) Chronic atrial fibrillation Assessment/Plan: Pt on ASA, plavix at [facility] Code(s): I48.2 - CHRONIC ATRIAL FIBRILLATION (4) CAD (coronary artery disease) Code(s): I25.10 - ATHSCL HEART DISEASE OF [place] CORONARY ARTERY W/O ANG PCTRS Qualifiers: Coronary Disease-Associated Artery/Lesion type: [place] artery [place] vs. transplanted heart: [place] heart Associated angina: without angina Qualified Code(s): I25.10 - Atherosclerotic heart disease of [place] coronary artery without angina pectoris (5) CHF (congestive heart failure) Assessment/Plan: Carvedilol at [facility] Code(s): I50.9 - HEART FAILURE, UNSPECIFIED Qualifiers: Congestive heart failure type: diastolic Congestive heart failure chronicity: chronic Qualified Code(s): I50.32 - Chronic diastolic (congestive ) heart failure (6) Aortic stenosis Code(s): I35.0 - NONRHEUMATIC AORTIC (VALVE) STENOSIS Qualifiers: Cardiac valve disease etiology: etiology unspecified Qualified Code(s): I35.0 - Nonrheumatic aortic (valve) stenosis (7) Hypothyroid Assessment/Plan: Synthroid at [facility] Code(s): E03.9 - HYPOTHYROIDISM, UNSPECIFIED Qualifiers: Hypothyroidism type: acquired Qualified Code(s): E03.9 - Hypothyroidism, unspecified (8) Dementia Assessment/Plan: daughter is POA Code(s): F03.90 - UNSPECIFIED DEMENTIA WITHOUT BEHAVIORAL DISTURBANCE Qualifiers: Dementia type: Alzheimer's disease Alzheimer's disease onset: late-onset Dementia behavioral disturbance: without behavioral disturbance Qualified Code (s): G30.1 - Alzheimer's disease with late onset; F02.80 - Dementia in other diseases classified elsewhere without behavioral disturbance; F02.80 - Dementia in other diseases classified elsewhere without behavioral disturbance; F02.80 - Dementia in other diseases classified elsewhere without behavioral disturbance (9) HLD (hyperlipidemia) Code(s): E78.5 - HYPERLIPIDEMIA, UNSPECIFIED Qualifiers: Hyperlipidemia type: unspecified Qualified Code(s): E78.5 - Hyperlipidemia , unspecified (10) HTN (hypertension) Code(s): I10 - ESSENTIAL (PRIMARY) HYPERTENSION Qualifiers: Hypertension type: essential hypertension Qualified Code(s): I10 - Essential (primary) hypertension (11) Morbid obesity Code(s): E66.01 - MORBID (SEVERE) OBESITY DUE TO EXCESS CALORIES
--- NOTE | 2017-03-16 11:44 | PN ---
Progress Note, Physician Chief Complaint: pt more awake today eats with assistance no complaints she pulled out her iv line - Current Medication List Current Medications: Active Medications Aspirin (Ecotrin -) 81 mg PO DAILY [facility] Last Admin: 03/16/17 09:58 Dose: 81 mg Bisacodyl (Dulcolax Suppository -) 10 mg RC DAILY PRN PRN Reason: CONSTIPATION Carvedilol (Coreg -) 3.125 mg PO BID [facility] Last Admin: 03/16/17 10:04 Dose: Not Given Clopidogrel Bisulfate (Plavix -) 75 mg PO DAILY [facility] Last Admin: 03/16/17 09:58 Dose: 75 mg Heparin Sodium (Porcine) (Heparin -) 5,000 unit SQ BID [facility] Last Admin: 03/16/17 09:58 Dose: 5,000 unit Levofloxacin (Levaquin 500 Mg Premixed Ivpb -) 500 mg in 100 mls @ 100 mls/hr IVPB DAILY [facility] Last Admin: 03/16/17 09:58 Dose: 100 mls/hr Dextrose/Sodium Chloride (D5-Ns -) 1,000 mls @ 60 mls/hr IV ASDIR [facility] Last Admin: 03/16/17 04:20 Dose: 60 mls/hr Insulin Aspart (Novolog Vial) 0 units SQ TIDAC [facility] PRN Reason: Protocol Last Admin: 03/16/17 06:06 Dose: 4 units Levothyroxine Sodium (Synthroid -) 100 mcg PO DAILY@0700 [facility] Last Admin: 03/16/17 06:06 Dose: 100 mcg - Objective Vital Signs: Vital Signs Temperature 97.5 F L 03/16/17 06:00 Pulse Rate 55 L 03/16/17 10:05 Respiratory Rate 18 03/16/17 10:05 Blood Pressure 136/70 03/16/17 10:05 O2 Sat by Pulse Oximetry (%) 98 03/16/17 09:00 Constitutional: Yes: No Distress, Calm Cardiovascular: Yes: Pulse Irregular Respiratory: Yes: Diminished Gastrointestinal: Yes: Normal Bowel Sounds, Soft, Abdomen, Obese, Distention. No: Tenderness Edema: Yes Edema: LLE: Trace, RLE: Trace Labs: CBC, BMP 03/14/17 07:49 03/14/17 07:49 INR, PTT INR 1.10 (0.82-1.09) 03/13/17 20:30 Problem List - Problems (1) Hypothyroid Code(s): E03.9 - HYPOTHYROIDISM, UNSPECIFIED Qualifiers: Hypothyroidism type: acquired Qualified Code(s): E03.9 - Hypothyroidism, unspecified (2) [place]'s syndrome Code(s): K59.8 - OTHER SPECIFIED FUNCTIONAL INTESTINAL DISORDERS (3) Pseudoobstruction of colon Code(s): K59.8 - OTHER SPECIFIED FUNCTIONAL INTESTINAL DISORDERS (4) Abdominal distention Code(s): R14.0 - ABDOMINAL DISTENSION (GASEOUS) (5) Adynamic ileus Code(s): K56.0 - PARALYTIC ILEUS (6) Anemia Code(s): D64.9 - ANEMIA, UNSPECIFIED Qualifiers: Anemia type: unspecified type Qualified Code(s): D64.9 - Anemia, unspecified (7) Aortic stenosis Code(s): I35.0 - NONRHEUMATIC AORTIC (VALVE) STENOSIS Qualifiers: Cardiac valve disease etiology: etiology unspecified Qualified Code(s): I35.0 - Nonrheumatic aortic (valve) stenosis (8) CAD (coronary artery disease) Code(s): I25.10 - ATHSCL HEART DISEASE OF [place] CORONARY ARTERY W/O ANG PCTRS Qualifiers: Coronary Disease-Associated Artery/Lesion type: [place] artery [place] vs. transplanted heart: [place] heart Associated angina: without angina Qualified Code(s): I25.10 - Atherosclerotic heart disease of [place] coronary artery without angina pectoris Assessment/Plan PLAN Pt more awake tolerating puree diet dc iv fluids Urine culture noted-- will continue with Levaquin blood cultures negative afebrile CXR does not show infiltrate GI follow up, DR Carlos Alberto Ramos away continue with current management ' frequent turning spoke with surgeon
--- NOTE | 2017-03-16 14:48 | PN ---
GI Progress Note Subjective: asked to the patient because persistent abdominal distention, patient deemed not a surgical candidate but will continue, to have the same problem with no surgical option. Her abdomen is much improved compared to three days ago. - Objective Vital Signs: Vital Signs Temperature 97.5 F L 03/16/17 06:00 Pulse Rate 55 L 03/16/17 10:05 Respiratory Rate 18 03/16/17 10:05 Blood Pressure 136/70 03/16/17 10:05 O2 Sat by Pulse Oximetry (%) 98 03/16/17 09:00 Constitutional: Obese Eyes: Yes: Conjunctiva Clear HENT: Yes: Normocephalic Neck: Yes: Trachea Midline Cardiovascular: Yes: Regular Rate and Rhythm Respiratory: Yes: CTA Bilaterally Gastrointestinal Inspection: Yes: Distention (--less) ...Auscultate: Yes: Hypoactive Bowel Sounds ...Palpate: Yes: Soft. No: Firm/Rigid, Guarding, Hepatomegaly, Splenomegaly, Tenderness, Epigastium ...Rectal Exam: Yes: Other (old rectal tube removed, empty rectal vault, a new rectal tube was inserted, two enemas appled) Labs: CBC, BMP 03/14/17 07:49 03/14/17 07:49 INR, PTT INR 1.10 (0.82-1.09) 03/13/17 20:30 Problem List - Problems (1) Pseudoobstruction of colon Assessment/Plan: R> will need second surgical opinion will need to flush the rectal tube every 4 hours to avoid reaccumulation of air case discussed with Aurelia her daughter and made aware that spontaneous perforation can occur. There is no role for colonoscopy athis tiome as patients abdomen is markedly improved. Code(s): K59.8 - OTHER SPECIFIED FUNCTIONAL INTESTINAL DISORDERS
--- NOTE | 2017-03-16 19:09 | CONSULT ---
Consult Consult Specialty:: Surgery Referred by:: Katelin Ochoa Reason for Consultation:: Chronic pseudoobstruction of the colon. - History of Present Illness History of Present Illness: Patient is referred for a second opinion on this 82 year old woman , with known [place]'s syndrome, and admitted with nonobstructive dialtation of the colon. Patient is not in pain. 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 morbid obesity - Past Surgical History Past Surgical History: Yes: Amputation (right BKA), Colonoscopy, Hysterectomy - Alcohol/Substance Use Hx Alcohol Use: No History of Substance Use: reports: None - Smoking History Smoking history: Former smoker Have you smoked in the past 12 months: No If you are a former smoker, when did you quit?: 30yrs - Social History Usual Living Arrangement: [facility] ADL: Support Services History of Recent Travel: No Home Medications - Allergies Allergies/Adverse Reactions: Allergies Allergy/AdvReac Type Severity Reaction Status Date / Time gluten Allergy Severe Verified 11/10/16 19:15 Penicillins Allergy Verified 11/10/16 19:15 vancomycin Allergy Verified 11/10/16 19:15 - Home Medications Home Medications: Ambulatory Orders Carvedilol 3.125 mg PO BID 09/19/15 Cholecalciferol (Vitamin D3) [Vitamin D3] 1,000 unit PO DAILY 09/19/15 Docusate Sodium [Colace -] 300 mg PO HS 09/19/15 Furosemide [Lasix -] 40 mg PO DAILY 09/19/15 Insulin Aspart [Novolog Flexpen] 0 unit SQ ASDIR 09/19/15 Insulin Glargine,Hum.rec.anlog [Lantus Solostar PEN -] 20 units SQ DAILY Levothyroxine [Synthroid -] 100 mcg PO DAILY 09/19/15 Magnesium Hydrox 2400MG/30Ml [Milk of Magnesia -] 30 ml PO Q2D 09/19/15 Multivitamins [Multivit ([facility])] 1 tab PO DAILY 09/19/15 Sennosides [Senna] 2 tab PO HS 09/19/15 Potassium Chloride [K-Dur -] 20 meq PO DAILY #30 tablet.er 09/24/15 Pantoprazole Sodium [Protonix -] 40 mg PO BID #60 tab 10/16/16 Aspirin [Aspirin EC] 81 mg PO DAILY 11/11/16 Clopidogrel Bisulfate [Clopidogrel] 75 mg PO DAILY 11/11/16 Heparin - 5,000 unit SQ BID vial 11/13/16 Polyethylene Glycol 3350 [Miralax 119 gm Btl -] 17 gm PO DAILY bottle 11/13/16 Review of Systems - Review of Systems Constitutional: reports: No Symptoms Eyes: reports: No Symptoms HENT: reports: No Symptoms Neck: reports: No Symptoms Cardiovascular: reports: No Symptoms Respiratory: reports: No Symptoms Gastrointestinal: reports: No Symptoms Genitourinary: reports: No Symptoms Breasts: reports: No Symptoms Reported, Pain Musculoskeletal: reports: No Symptoms Integumentary: reports: No Symptoms, Incision Neurological: reports: No Symptoms Endocrine: reports: No Symptoms Hematology/Lymphatic: reports: No Symptoms Psychiatric: reports: No Symptoms Physical Exam Vital Signs: Vital Signs Temperature 97.7 F 03/16/17 14:55 Pulse Rate 57 L 03/16/17 14:55 Respiratory Rate 18 03/16/17 14:55 Blood Pressure 135/64 03/16/17 14:55 O2 Sat by Pulse Oximetry (%) 98 03/16/17 09:00 Gastrointestinal: Yes: Other (Abdomen is soft , not tender. rectal tube is in place. She is obese.) ...Rectal Exam: Yes: WNL Labs: CBC, BMP 03/14/17 07:49 03/14/17 07:49 Imaging - Results X-ray: Report Reviewed, Image Reviewed Cat Scan: Report Reviewed, Image Reviewed Problem List - Problems (1) Pseudoobstruction of colon Code(s): K59.8 - OTHER SPECIFIED FUNCTIONAL INTESTINAL DISORDERS (2) Adynamic ileus Code(s): K56.0 - PARALYTIC ILEUS (3) Pseudoobstruction of colon Code(s): K59.8 - OTHER SPECIFIED FUNCTIONAL INTESTINAL DISORDERS (4) H/O: hypothyroidism Code(s): Z86.39 - PERSONAL HISTORY OF ENDO, NUTRITIONAL AND METABOLIC DISEASE (5) Morbid obesity Code(s): E66.01 - MORBID (SEVERE) OBESITY DUE TO EXCESS CALORIES (6) Penny's syndrome Code(s): K59.8 - OTHER SPECIFIED FUNCTIONAL INTESTINAL DISORDERS (7) Afib Code(s): I48.91 - UNSPECIFIED ATRIAL FIBRILLATION Qualifiers: Atrial fibrillation type: paroxysmal Qualified Code(s): I48.0 - Paroxysmal atrial fibrillation (8) Anemia Code(s): D64.9 - ANEMIA, UNSPECIFIED Qualifiers: Anemia type: unspecified type Qualified Code(s): D64.9 - Anemia, unspecified (9) Aortic stenosis Code(s): I35.0 - NONRHEUMATIC AORTIC (VALVE) STENOSIS Qualifiers: Cardiac valve disease etiology: etiology unspecified Qualified Code(s): I35.0 - Nonrheumatic aortic (valve) stenosis (10) CAD (coronary artery disease) Code(s): I25.10 - ATHSCL HEART DISEASE OF [place] CORONARY ARTERY W/O ANG PCTRS Qualifiers: Coronary Disease-Associated Artery/Lesion type: [place] artery [place] vs. transplanted heart: [place] heart Associated angina: without angina Qualified Code(s): I25.10 - Atherosclerotic heart disease of [place] coronary artery without angina pectoris (11) CHF (congestive heart failure) Code(s): I50.9 - HEART FAILURE, UNSPECIFIED Qualifiers: Congestive heart failure type: diastolic Congestive heart failure chronicity: chronic Qualified Code(s): I50.32 - Chronic diastolic (congestive ) heart failure (12) Chronic atrial fibrillation Code(s): I48.2 - CHRONIC ATRIAL FIBRILLATION (13) Dementia Code(s): F03.90 - UNSPECIFIED DEMENTIA WITHOUT BEHAVIORAL DISTURBANCE Qualifiers: Dementia type: Alzheimer's disease Alzheimer's disease onset: late-onset Dementia behavioral disturbance: without behavioral disturbance Qualified Code (s): G30.1 - Alzheimer's disease with late onset; F02.80 - Dementia in other diseases classified elsewhere without behavioral disturbance; F02.80 - Dementia in other diseases classified elsewhere without behavioral disturbance; F02.80 - Dementia in other diseases classified elsewhere without behavioral disturbance Assessment/Plan Patient does not have mechanical small obstruction, and does not need emergency surgical procedure for this condition . Continue efforts to improve stool motility , rectal tube , correct any metabolic and elecrolyte imbalance. Measure TSH and T3 and T4. Continue current measures.
[2017-03-16] MEDS ORDERED: SODIUM CHLORIDE 0.9% RC SCH (22:00)
[2017-03-17] MEDS: DEXTROSE 5%-NORMAL SALINE 1,000 ML IV SCH (03:44)
[2017-03-17] MEDS: INSULIN (NOVOLOG) ASPART 100 UNITS/ML 10ML VIAL SQ SCH ×3 (06:44→17:57)
[2017-03-17] MEDS: LEVOFLOXACIN 500 MG TABLET (FP) PO SCH (06:45)
[2017-03-17] MEDS: LEVOTHYROXINE NA 100 MCG TABLET (FP) PO SCH (06:45)
[2017-03-17] MEDS ORDERED: SODIUM PHOSPHATE/NA BIPHOS 133 ML ENEMA PR ONE (07:57)
[2017-03-17 08:40] LABS: FREE T4 1.05 ng/dl (0.76-1.46); THYROID STIMULATING HORMONE 3.19 uIU/ml (0.358-3.74)
[2017-03-17] MEDS: CARVEDILOL 3.125 MG TABLET (FP) PO SCH ×2 (10:31→22:53)
[2017-03-17] MEDS: ASPIRIN COATED 81 MG TABLET.EC PO SCH (10:31)
[2017-03-17] MEDS: CLOPIDOGREL BISULFATE 75 MG TABLET (FP) PO SCH (10:32)
[2017-03-17] MEDS: HEPARIN NA (PORCINE) 5,000 UNITS/ML 1ML VIAL SQ SCH ×2 (10:32→22:54)
--- NOTE | 2017-03-17 11:59 | PN ---
Progress Note, Physician Chief Complaint: pt more awake today eats well no complaints of abdominal pain as per nurse, pt is having BM rectal tube in place - Current Medication List Current Medications: Active Medications Aspirin (Ecotrin -) 81 mg PO DAILY [facility] Last Admin: 03/17/17 10:31 Dose: 81 mg Bisacodyl (Dulcolax Suppository -) 10 mg RC DAILY PRN PRN Reason: CONSTIPATION Carvedilol (Coreg -) 3.125 mg PO BID [facility] Last Admin: 03/17/17 10:31 Dose: 3.125 mg Clopidogrel Bisulfate (Plavix -) 75 mg PO DAILY [facility] Last Admin: 03/17/17 10:32 Dose: 75 mg Heparin Sodium (Porcine) (Heparin -) 5,000 unit SQ BID [facility] Last Admin: 03/17/17 10:32 Dose: 5,000 unit Insulin Aspart (Novolog Vial) 0 units SQ TIDAC [facility] PRN Reason: Protocol Last Admin: 03/17/17 06:44 Dose: 2 units Levofloxacin (Levaquin -) 500 mg PO DAILY@0600 [facility] Last Admin: 03/17/17 06:45 Dose: 500 mg Levothyroxine Sodium (Synthroid -) 100 mcg PO DAILY@0700 [facility] Last Admin: 03/17/17 06:45 Dose: 100 mcg - Objective Vital Signs: Vital Signs Temperature 98 F 03/17/17 10:45 Pulse Rate 93 H 03/17/17 10:45 Respiratory Rate 18 03/17/17 10:45 Blood Pressure 139/80 03/17/17 10:45 O2 Sat by Pulse Oximetry (%) 96 03/16/17 21:00 Constitutional: Yes: No Distress Cardiovascular: Yes: Regular Rate and Rhythm Respiratory: Yes: Diminished Gastrointestinal: Yes: Normal Bowel Sounds, Soft, Abdomen, Obese, Distention. 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 - OTHER SPECIFIED FUNCTIONAL INTESTINAL DISORDERS (3) Pseudoobstruction of colon Code(s): K59.8 - OTHER SPECIFIED FUNCTIONAL INTESTINAL DISORDERS (4) Abdominal distention Code(s): R14.0 - ABDOMINAL DISTENSION (GASEOUS) (5) Adynamic ileus Code(s): K56.0 - PARALYTIC ILEUS (6) Anemia Code(s): D64.9 - ANEMIA, UNSPECIFIED Qualifiers: Anemia type: unspecified type Qualified Code(s): D64.9 - Anemia, unspecified (7) Aortic stenosis Code(s): I35.0 - NONRHEUMATIC AORTIC (VALVE) STENOSIS Qualifiers: Cardiac valve disease etiology: etiology unspecified Qualified Code(s): I35.0 - Nonrheumatic aortic (valve) stenosis (8) CAD (coronary artery disease) Code(s): I25.10 - ATHSCL HEART DISEASE OF [place] CORONARY ARTERY W/O ANG PCTRS Qualifiers: Coronary Disease-Associated Artery/Lesion type: [place] artery [place] vs. transplanted heart: [place] heart Associated angina: without angina Qualified Code(s): I25.10 - Atherosclerotic heart disease of [place] coronary artery without angina pectoris Assessment/Plan PLAN Pt more awake , more at her baseline tolerating puree diet -- advance to soft diet dc iv fluids Urine culture noted-- will continue with Levaquin blood cultures negative afebrile CXR does not show infiltrate spoke with Dr Palomino -- second opinion-- pt is high risk for surgery -- daughter is apprehensive about surgery As per DR Neves-- possible chance with loop colostomy and Dr Bowman is consulted-- pending frequent turning
[2017-03-17] MEDS ORDERED: INSULIN (NOVOLOG) ASPART 100 UNITS/ML 10ML VIAL ONE ×2 (12:54→21:28)
--- NOTE | 2017-03-17 14:06 | PN ---
Progress Note, Physician - Current Medication List Current Medications: Active Medications Aspirin (Ecotrin -) 81 mg PO DAILY [facility] Last Admin: 03/17/17 10:31 Dose: 81 mg Bisacodyl (Dulcolax Suppository -) 10 mg RC DAILY PRN PRN Reason: CONSTIPATION Carvedilol (Coreg -) 3.125 mg PO BID [facility] Last Admin: 03/17/17 10:31 Dose: 3.125 mg Clopidogrel Bisulfate (Plavix -) 75 mg PO DAILY [facility] Last Admin: 03/17/17 10:32 Dose: 75 mg Heparin Sodium (Porcine) (Heparin -) 5,000 unit SQ BID [facility] Last Admin: 03/17/17 10:32 Dose: 5,000 unit Insulin Aspart (Novolog Vial) 0 units SQ TIDAC [facility] PRN Reason: Protocol Last Admin: 03/17/17 12:57 Dose: 2 units Levofloxacin (Levaquin -) 500 mg PO DAILY@0600 [facility] Last Admin: 03/17/17 06:45 Dose: 500 mg Levothyroxine Sodium (Synthroid -) 100 mcg PO DAILY@0700 [facility] Last Admin: 03/17/17 06:45 Dose: 100 mcg - Objective Vital Signs: Vital Signs Temperature 97.9 F 03/17/17 13:49 Pulse Rate 65 03/17/17 13:49 Respiratory Rate 20 03/17/17 13:49 Blood Pressure 161/59 03/17/17 13:49 O2 Sat by Pulse Oximetry (%) 96 03/16/17 21:00 Labs: CBC, BMP 03/14/17 07:49 03/14/17 07:49 INR, PTT INR 1.10 (0.82-1.09) 03/13/17 20:30 Problem List - Problems (1) Pseudoobstruction of colon Code(s): K59.8 - OTHER SPECIFIED FUNCTIONAL INTESTINAL DISORDERS (2) Adynamic ileus Code(s): K56.0 - PARALYTIC ILEUS (3) Pseudoobstruction of colon Code(s): K59.8 - OTHER SPECIFIED FUNCTIONAL INTESTINAL DISORDERS (4) H/O: hypothyroidism Code(s): Z86.39 - PERSONAL HISTORY OF ENDO, NUTRITIONAL AND METABOLIC DISEASE (5) Morbid obesity Code(s): E66.01 - MORBID (SEVERE) OBESITY DUE TO EXCESS CALORIES (6) Penny's syndrome Code(s): K59.8 - OTHER SPECIFIED FUNCTIONAL INTESTINAL DISORDERS (7) Afib Code(s): I48.91 - UNSPECIFIED ATRIAL FIBRILLATION Qualifiers: Atrial fibrillation type: paroxysmal Qualified Code(s): I48.0 - Paroxysmal atrial fibrillation (8) Anemia Code(s): D64.9 - ANEMIA, UNSPECIFIED Qualifiers: Anemia type: unspecified type Qualified Code(s): D64.9 - Anemia, unspecified (9) Aortic stenosis Code(s): I35.0 - NONRHEUMATIC AORTIC (VALVE) STENOSIS Qualifiers: Cardiac valve disease etiology: etiology unspecified Qualified Code(s): I35.0 - Nonrheumatic aortic (valve) stenosis (10) CAD (coronary artery disease) Code(s): I25.10 - ATHSCL HEART DISEASE OF [place] CORONARY ARTERY W/O ANG PCTRS Qualifiers: Coronary Disease-Associated Artery/Lesion type: [place] artery [place] vs. transplanted heart: [place] heart Associated angina: without angina Qualified Code(s): I25.10 - Atherosclerotic heart disease of [place] coronary artery without angina pectoris (11) CHF (congestive heart failure) Code(s): I50.9 - HEART FAILURE, UNSPECIFIED Qualifiers: Congestive heart failure type: diastolic Congestive heart failure chronicity: chronic Qualified Code(s): I50.32 - Chronic diastolic (congestive ) heart failure (12) Chronic atrial fibrillation Code(s): I48.2 - CHRONIC ATRIAL FIBRILLATION (13) Dementia Code(s): F03.90 - UNSPECIFIED DEMENTIA WITHOUT BEHAVIORAL DISTURBANCE Qualifiers: Dementia type: Alzheimer's disease Alzheimer's disease onset: late-onset Dementia behavioral disturbance: without behavioral disturbance Qualified Code (s): G30.1 - Alzheimer's disease with late onset; F02.80 - Dementia in other diseases classified elsewhere without behavioral disturbance; F02.80 - Dementia in other diseases classified elsewhere without behavioral disturbance; F02.80 - Dementia in other diseases classified elsewhere without behavioral disturbance Assessment/Plan Follow up : Patient is comfortable. Abdomen is soft , not tender. I have disscussed my opinion with Dr. Ochoa and . Intestinal pseudo-obstruction . Continue medical management.
[2017-03-17] MEDS: MINERAL OIL ENEMA 133 ML ENEMA PR ONE ×2 (16:50)
--- NOTE | 2017-03-17 18:08 | PN ---
Progress Note, Physician Chief Complaint: abdominal distention History of Present Illness: No overnight events. Rectal tube was changed yesterday, getting enemas through it with liquid stool from tube and around tube. Tolerating pureed diet. Pt appears comfortable, eating dinner in bed. Daughter Aurelia at bedside. Second surgical consult noted, spoke with Dr. Palomino. No complaints, pt states abdomen feels "ok." - Current Medication List Current Medications: Active Medications Aspirin (Ecotrin -) 81 mg PO DAILY [facility] Last Admin: 03/17/17 10:31 Dose: 81 mg Bisacodyl (Dulcolax Suppository -) 10 mg RC DAILY PRN PRN Reason: CONSTIPATION Carvedilol (Coreg -) 3.125 mg PO BID [facility] Last Admin: 03/17/17 10:31 Dose: 3.125 mg Clopidogrel Bisulfate (Plavix -) 75 mg PO DAILY [facility] Last Admin: 03/17/17 10:32 Dose: 75 mg Heparin Sodium (Porcine) (Heparin -) 5,000 unit SQ BID [facility] Last Admin: 03/17/17 10:32 Dose: 5,000 unit Insulin Aspart (Novolog Vial) 0 units SQ TIDAC [facility] PRN Reason: Protocol Last Admin: 03/17/17 12:57 Dose: 2 units Levofloxacin (Levaquin -) 500 mg PO DAILY@0600 [facility] Last Admin: 03/17/17 06:45 Dose: 500 mg Levothyroxine Sodium (Synthroid -) 100 mcg PO DAILY@0700 [facility] Last Admin: 03/17/17 06:45 Dose: 100 mcg - Objective Vital Signs: Vital Signs Temperature 97.9 F 03/17/17 13:49 Pulse Rate 65 03/17/17 13:49 Respiratory Rate 20 03/17/17 13:49 Blood Pressure 161/59 03/17/17 13:49 O2 Sat by Pulse Oximetry (%) 96 03/17/17 09:00 Constitutional: Yes: No Distress, Calm, Obese Eyes: Yes: Conjunctiva Clear, EOM Intact Gastrointestinal: Yes: Soft, Abdomen, Obese, Distention (with some tympany, not quite at baseline per daughter, but much less than on presentation). No: Tenderness ...Rectal Exam: Yes: Deferred (pt eating dinner - rectal tube not inspected) Genitourinary: Yes: Incontinence (in diaper). No: Hematuria Extremities: Yes: Amputation (R BKA). No: Cool, Cyanosis Neurological: Yes: Alert, Confusion, Pre-Existing Deficit (baseline dementia). No: Oriented Psychiatric: Yes: Alert. No: Agitated Labs: no new labs - ....Imaging X-ray: Report Reviewed (persistently dilated colonic loops, but appear slightly less than previously), Image Reviewed Problem List - Problems (1) [place]'s syndrome Assessment/Plan: Pt without abdominal pain or tenderness tolerating diet continue rectal tube for now GI following ensure lytes in normal range when back on home meds, would d/c lactulose and not resume (inpatient or outpatient), as it contributes to gas formation and recurrent distention pt will need enemas on daily basis at least for stool evacuation daughter is concerned that in future, she would like to see her mother able to be transferred to inpatient status in hospital when this problem reoccurs, rather than going through ER, since the problem is known. i explained that objective testing, including labs and imaging, are usually required to justify admission. she could discuss with patient's PMD and/or senior care regarding whether they are able to have an accepting admitting medical physician for this problem in the future, but that ultimately that would be up to her medical providers. Code(s): K59.8 - OTHER SPECIFIED FUNCTIONAL INTESTINAL DISORDERS (2) Secondary chronic pseudo-obstruction of intestine Code(s): K56.0 - PARALYTIC ILEUS (3) Chronic atrial fibrillation Assessment/Plan: Pt on ASA, plavix at [facility] Code(s): I48.2 - CHRONIC ATRIAL FIBRILLATION (4) CAD (coronary artery disease) Code(s): I25.10 - ATHSCL HEART DISEASE OF [place] CORONARY ARTERY W/O ANG PCTRS Qualifiers: Coronary Disease-Associated Artery/Lesion type: [place] artery [place] vs. transplanted heart: [place] heart Associated angina: without angina Qualified Code(s): I25.10 - Atherosclerotic heart disease of [place] coronary artery without angina pectoris (5) CHF (congestive heart failure) Assessment/Plan: Carvedilol at [facility] Code(s): I50.9 - HEART FAILURE, UNSPECIFIED Qualifiers: Congestive heart failure type: diastolic Congestive heart failure chronicity: chronic Qualified Code(s): I50.32 - Chronic diastolic (congestive ) heart failure (6) Aortic stenosis Code(s): I35.0 - NONRHEUMATIC AORTIC (VALVE) STENOSIS Qualifiers: Cardiac valve disease etiology: etiology unspecified Qualified Code(s): I35.0 - Nonrheumatic aortic (valve) stenosis (7) Hypothyroid Assessment/Plan: Synthroid at [facility] thyroid labs checked, TSH in normal range but up a bit from May (2.79 to 3.19) Code(s): E03.9 - HYPOTHYROIDISM, UNSPECIFIED Qualifiers: Hypothyroidism type: acquired Qualified Code(s): E03.9 - Hypothyroidism, unspecified (8) Dementia Assessment/Plan: daughter is POA Code(s): F03.90 - UNSPECIFIED DEMENTIA WITHOUT BEHAVIORAL DISTURBANCE Qualifiers: Dementia type: Alzheimer's disease Alzheimer's disease onset: late-onset Dementia behavioral disturbance: without behavioral disturbance Qualified Code (s): G30.1 - Alzheimer's disease with late onset; F02.80 - Dementia in other diseases classified elsewhere without behavioral disturbance; F02.80 - Dementia in other diseases classified elsewhere without behavioral disturbance; F02.80 - Dementia in other diseases classified elsewhere without behavioral disturbance (9) HLD (hyperlipidemia) Code(s): E78.5 - HYPERLIPIDEMIA, UNSPECIFIED Qualifiers: Hyperlipidemia type: unspecified Qualified Code(s): E78.5 - Hyperlipidemia , unspecified (10) HTN (hypertension) Code(s): I10 - ESSENTIAL (PRIMARY) HYPERTENSION Qualifiers: Hypertension type: essential hypertension Qualified Code(s): I10 - Essential (primary) hypertension (11) Morbid obesity Code(s): E66.01 - MORBID (SEVERE) OBESITY DUE TO EXCESS CALORIES
--- NOTE | 2017-03-17 22:08 | CONSULT ---
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 She was admitted 4 days ago and treated conservatively with rectal tube decompression. She was evaluated by 2 surgeons and Gi all of whom recommended conservative manage.ment. 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 morbid obesity - Past Surgical History Past Surgical History: Yes: Amputation (right BKA), Colonoscopy, Hysterectomy - Alcohol/Substance Use Hx Alcohol Use: No History of Substance Use: reports: None - Smoking History Smoking history: Former smoker Have you smoked in the past 12 months: No If you are a former smoker, when did you quit?: 30yrs - Social History Usual Living Arrangement: [facility] ADL: Support Services History of Recent Travel: No Home Medications - Allergies Allergies/Adverse Reactions: Allergies Allergy/AdvReac Type Severity Reaction Status Date / Time gluten Allergy Severe Verified 11/10/16 19:15 Penicillins Allergy Verified 11/10/16 19:15 vancomycin Allergy Verified 11/10/16 19:15 - Home Medications Home Medications: Ambulatory Orders Carvedilol 3.125 mg PO BID 09/19/15 Cholecalciferol (Vitamin D3) [Vitamin D3] 1,000 unit PO DAILY 09/19/15 Docusate Sodium [Colace -] 300 mg PO HS 09/19/15 Furosemide [Lasix -] 40 mg PO DAILY 09/19/15 Insulin Aspart [Novolog Flexpen] 0 unit SQ ASDIR 09/19/15 Insulin Glargine,Hum.rec.anlog [Lantus Solostar PEN -] 20 units SQ DAILY Levothyroxine [Synthroid -] 100 mcg PO DAILY 09/19/15 Magnesium Hydrox 2400MG/30Ml [Milk of Magnesia -] 30 ml PO Q2D 09/19/15 Multivitamins [Multivit ([facility] Formulary)] 1 tab PO DAILY 09/19/15 Sennosides [Senna] 2 tab PO HS 09/19/15 Potassium Chloride [K-Dur -] 20 meq PO DAILY #30 tablet.er 09/24/15 Pantoprazole Sodium [Protonix -] 40 mg PO BID #60 tab 10/16/16 Aspirin [Aspirin EC] 81 mg PO DAILY 11/11/16 Clopidogrel Bisulfate [Clopidogrel] 75 mg PO DAILY 11/11/16 Heparin - 5,000 unit SQ BID vial 11/13/16 Polyethylene Glycol 3350 [Miralax 119 gm Btl -] 17 gm PO DAILY bottle 11/13/16 Physical Exam Vital Signs: Vital Signs Temperature 97.4 F L 03/17/17 18:21 Pulse Rate 61 03/17/17 18:21 Respiratory Rate 18 03/17/17 18:21 Blood Pressure 129/60 03/17/17 18:21 O2 Sat by Pulse Oximetry (%) 96 03/17/17 09:00 Labs: CBC, BMP 03/14/17 07:49 03/14/17 07:49 Imaging - Results X-ray: Report Reviewed, Image Reviewed Cat Scan: Report Reviewed, Image Reviewed Problem List - Problems (1) Penny's syndrome Code(s): K59.8 - OTHER SPECIFIED FUNCTIONAL INTESTINAL DISORDERS Assessment/Plan 86 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 She is a relatively high risk patient given the history of CAD/CHF/ and thus ideally conservative therapy would be preferred. She would be a poor candidate for subtotal colectomy . Alternatively if medical team and family is willing to consider a loop colostomy is an alternative that can be performed with minimal anesthesia , even local with sedation, and would allow for a more effective management of colonic hygiene and hopefully avoid these recurrent episodes of pseudo-obstruction. The decision to consider transverse loop colostomy would need to be made in concert with family, primary care, cardiology and Gi Team
[2017-03-18 06:06] LABS: FREE T3 1.3 pg/mL (2.0-4.4)
[2017-03-18] MEDS: INSULIN (NOVOLOG) ASPART 100 UNITS/ML 10ML VIAL SQ SCH ×3 (06:13→17:11)
[2017-03-18] MEDS: LEVOTHYROXINE NA 100 MCG TABLET (FP) PO SCH (06:13)
[2017-03-18] MEDS: LEVOFLOXACIN 500 MG TABLET (FP) PO SCH (06:13)
[2017-03-18] MEDS ORDERED: INSULIN (NOVOLOG) ASPART 100 UNITS/ML 10ML VIAL ONE (06:36)
[2017-03-18] MEDS: HEPARIN NA (PORCINE) 5,000 UNITS/ML 1ML VIAL SQ SCH (10:33)
[2017-03-18] MEDS: CLOPIDOGREL BISULFATE 75 MG TABLET (FP) PO SCH (10:33)
[2017-03-18] MEDS: CARVEDILOL 3.125 MG TABLET (FP) PO SCH ×2 (10:33→21:27)
[2017-03-18] MEDS: ASPIRIN COATED 81 MG TABLET.EC PO SCH (10:33)
--- NOTE | 2017-03-18 11:08 | PN ---
Progress Note, Physician Chief Complaint: abdominal distention History of Present Illness: No overnight events. Rectal tube in place. Tolerating pureed diet. Pt appears comfortable, resting in bed. Dr. Bowman's consult noted. No complaints, pt states abdomen feels "ok." - Current Medication List Current Medications: Active Medications Aspirin (Ecotrin -) 81 mg PO DAILY [facility] Last Admin: 03/18/17 10:33 Dose: 81 mg Bisacodyl (Dulcolax Suppository -) 10 mg RC DAILY PRN PRN Reason: CONSTIPATION Carvedilol (Coreg -) 3.125 mg PO BID [facility] Last Admin: 03/18/17 10:33 Dose: 3.125 mg Clopidogrel Bisulfate (Plavix -) 75 mg PO DAILY [facility] Last Admin: 03/18/17 10:33 Dose: 75 mg Heparin Sodium (Porcine) (Heparin -) 5,000 unit SQ BID [facility] Last Admin: 03/18/17 10:33 Dose: 5,000 unit Insulin Aspart (Novolog Vial) 0 units SQ TIDAC [facility] PRN Reason: Protocol Last Admin: 03/18/17 06:13 Dose: 2 units Levofloxacin (Levaquin -) 500 mg PO DAILY@0600 [facility] Last Admin: 03/18/17 06:13 Dose: 500 mg Levothyroxine Sodium (Synthroid -) 100 mcg PO DAILY@0700 [facility] Last Admin: 03/18/17 06:13 Dose: 100 mcg - Objective Vital Signs: Vital Signs Temperature 98.5 F 03/18/17 10:00 Pulse Rate 65 03/18/17 10:00 Respiratory Rate 18 03/18/17 10:00 Blood Pressure 112/50 03/18/17 10:00 O2 Sat by Pulse Oximetry (%) 96 03/17/17 21:00 Constitutional: Yes: No Distress, Calm, Obese Eyes: Yes: Conjunctiva Clear, EOM Intact Gastrointestinal: Yes: Soft, Abdomen, Obese, Distention. No: Tenderness ...Rectal Exam: Yes: Deferred (no assistance present at the moment) Genitourinary: Yes: Incontinence (in diaper). No: Hematuria Extremities: Yes: Amputation (R BKA). No: Cool, Cyanosis Integumentary: No: Jaundice, Rash Neurological: Yes: Alert, Confusion (baseline dementia) Psychiatric: Yes: Alert. No: Agitated Labs: Microbiology 03/14/17 17:00 Urine Culture - Final Urine - Urine - Catheterized Klebsiella Pneumoniae Escherichia Coli Esbl Career Placement Services Counselor 03/14/17 14:40 Blood Culture - Preliminary Blood - Peripheral Venous NO GROWTH OBTAINED AFTER 72 HOURS, INCUBATION TO CONTINUE FOR 2 DAYS. 03/14/17 14:40 Blood Culture - Preliminary Blood - Peripheral Venous NO GROWTH OBTAINED AFTER 72 HOURS, INCUBATION TO CONTINUE FOR 2 DAYS. E. coli resistant to levofloxacin - ....Imaging X-ray: Report Reviewed, Image Reviewed Problem List - Problems (1) [place]'s syndrome Assessment/Plan: Pt without abdominal pain or tenderness tolerating diet continuing rectal tube for now GI following additional surgical opinions noted ensure lytes in normal range when back on home meds, would d/c lactulose and not resume (inpatient or outpatient), as it contributes to gas formation and recurrent distention pt will need enemas on daily basis at least for stool evacuation Code(s): K59.8 - OTHER SPECIFIED FUNCTIONAL INTESTINAL DISORDERS (2) Secondary chronic pseudo-obstruction of intestine Code(s): K56.0 - PARALYTIC ILEUS (3) Chronic atrial fibrillation Assessment/Plan: Pt on ASA, plavix Code(s): I48.2 - CHRONIC ATRIAL FIBRILLATION (4) CAD (coronary artery disease) Code(s): I25.10 - ATHSCL HEART DISEASE OF [place] CORONARY ARTERY W/O ANG PCTRS Qualifiers: Coronary Disease-Associated Artery/Lesion type: [place] artery [place] vs. transplanted heart: [place] heart Associated angina: without angina Qualified Code(s): I25.10 - Atherosclerotic heart disease of [place] coronary artery without angina pectoris (5) CHF (congestive heart failure) Assessment/Plan: on Carvedilol Code(s): I50.9 - HEART FAILURE, UNSPECIFIED Qualifiers: Congestive heart failure type: diastolic Congestive heart failure chronicity: chronic Qualified Code(s): I50.32 - Chronic diastolic (congestive ) heart failure (6) Aortic stenosis Code(s): I35.0 - NONRHEUMATIC AORTIC (VALVE) STENOSIS Qualifiers: Cardiac valve disease etiology: etiology unspecified Qualified Code(s): I35.0 - Nonrheumatic aortic (valve) stenosis (7) Hypothyroid Assessment/Plan: on Synthroid Code(s): E03.9 - HYPOTHYROIDISM, UNSPECIFIED Qualifiers: Hypothyroidism type: acquired Qualified Code(s): E03.9 - Hypothyroidism, unspecified (8) Dementia Assessment/Plan: daughter is POA Code(s): F03.90 - UNSPECIFIED DEMENTIA WITHOUT BEHAVIORAL DISTURBANCE Qualifiers: Dementia type: Alzheimer's disease Alzheimer's disease onset: late-onset Dementia behavioral disturbance: without behavioral disturbance Qualified Code (s): G30.1 - Alzheimer's disease with late onset; F02.80 - Dementia in other diseases classified elsewhere without behavioral disturbance; F02.80 - Dementia in other diseases classified elsewhere without behavioral disturbance; F02.80 - Dementia in other diseases classified elsewhere without behavioral disturbance (9) HLD (hyperlipidemia) Code(s): E78.5 - HYPERLIPIDEMIA, UNSPECIFIED Qualifiers: Hyperlipidemia type: unspecified Qualified Code(s): E78.5 - Hyperlipidemia , unspecified (10) HTN (hypertension) Code(s): I10 - ESSENTIAL (PRIMARY) HYPERTENSION Qualifiers: Hypertension type: essential hypertension Qualified Code(s): I10 - Essential (primary) hypertension (11) Morbid obesity Code(s): E66.01 - MORBID (SEVERE) OBESITY DUE TO EXCESS CALORIES (12) UTI due to extended-spectrum beta lactamase (ESBL) producing Escherichia coli Assessment/Plan: and non ESBL Klebsiella antibiotics per primary team/ID Code(s): N39.0 - URINARY TRACT INFECTION, SITE NOT SPECIFIED; A49.8 - OTHER BACTERIAL INFECTIONS OF UNSPECIFIED SITE; Z16.12 - EXTENDED SPECTRUM BETA LACTAMASE (ESBL) RESISTANCE
--- NOTE | 2017-03-18 11:39 | PN ---
Progress Note, Physician Chief Complaint: patient seen in the room less abdominal distention tolerating diet surgical consult- third opinion noted PCN allergy UC- resistant to levaquin- will d/c - Current Medication List Current Medications: Active Medications Aspirin (Ecotrin -) 81 mg PO DAILY [facility] Last Admin: 03/18/17 10:33 Dose: 81 mg Bisacodyl (Dulcolax Suppository -) 10 mg RC DAILY PRN PRN Reason: CONSTIPATION Carvedilol (Coreg -) 3.125 mg PO BID [facility] Last Admin: 03/18/17 10:33 Dose: 3.125 mg Clopidogrel Bisulfate (Plavix -) 75 mg PO DAILY [facility] Last Admin: 03/18/17 10:33 Dose: 75 mg Heparin Sodium (Porcine) (Heparin -) 5,000 unit SQ BID [facility] Last Admin: 03/18/17 10:33 Dose: 5,000 unit Insulin Aspart (Novolog Vial) 0 units SQ TIDAC [facility] PRN Reason: Protocol Last Admin: 03/18/17 06:13 Dose: 2 units Levofloxacin (Levaquin -) 500 mg PO DAILY@0600 [facility] Last Admin: 03/18/17 06:13 Dose: 500 mg Levothyroxine Sodium (Synthroid -) 100 mcg PO DAILY@0700 [facility] Last Admin: 03/18/17 06:13 Dose: 100 mcg - Objective Vital Signs: Vital Signs Temperature 98.5 F 03/18/17 10:00 Pulse Rate 65 03/18/17 10:00 Respiratory Rate 18 03/18/17 10:00 Blood Pressure 112/50 03/18/17 10:00 O2 Sat by Pulse Oximetry (%) 96 03/17/17 21:00 Constitutional: Yes: No Distress, Calm Cardiovascular: Yes: Regular Rate and Rhythm, S1, S2 Respiratory: Yes: Regular, CTA Bilaterally. No: Rhonchi, Tachypnea Gastrointestinal: Yes: Soft, Abdomen, Obese, Distention, Other (rectal tube) Extremities: Yes: Other (right bka) Edema: No (LLE- Stasis changes) Neurological: Yes: Alert, Oriented, Other (oriented x2) Psychiatric: Yes: Alert, Other (calm) Labs: CBC, BMP 03/14/17 07:49 03/14/17 07:49 INR, PTT INR 1.10 (0.82-1.09) 03/13/17 20:30 - ....Imaging X-ray: Report Reviewed Problem List - Problems (1) Penny's syndrome Code(s): K59.8 - OTHER SPECIFIED FUNCTIONAL INTESTINAL DISORDERS (2) Pseudoobstruction of colon Code(s): K59.8 - OTHER SPECIFIED FUNCTIONAL INTESTINAL DISORDERS (3) Paroxysmal atrial fibrillation Code(s): I48.0 - PAROXYSMAL ATRIAL FIBRILLATION (4) Abdominal distention Code(s): R14.0 - ABDOMINAL DISTENSION (GASEOUS) (5) Aortic stenosis Code(s): I35.0 - NONRHEUMATIC AORTIC (VALVE) STENOSIS Qualifiers: Cardiac valve disease etiology: etiology unspecified Qualified Code(s): I35.0 - Nonrheumatic aortic (valve) stenosis (6) CAD (coronary artery disease) Code(s): I25.10 - ATHSCL HEART DISEASE OF [place] CORONARY ARTERY W/O ANG PCTRS Qualifiers: Coronary Disease-Associated Artery/Lesion type: [place] artery [place] vs. transplanted heart: [place] heart Associated angina: without angina Qualified Code(s): I25.10 - Atherosclerotic heart disease of [place] coronary artery without angina pectoris (7) Urinary tract infection Code(s): N39.0 - URINARY TRACT INFECTION, SITE NOT SPECIFIED Assessment/Plan Pt more awake , more at her baseline tolerating diet blood cultures negative spoke with Dr Palomino - pt is high risk for surgery Dr Doan- consult noted rectal tube in place frequent turning enema daily avoid lactulose/avoid oral laxatives ID consult d/c russell
--- NOTE | 2017-03-18 12:16 | PN ---
Progress Note (short form) - Note Progress Note: Pt examined alongside with SO[employer] HAND ENGRAVER Tona Awake and alert SHe ate her breakfast fine No c/o abdominal pain Vital Signs - 24 hr 03/17/17 03/17/17 03/17/17 13:49 18:21 21:00 Temperature 97.9 F 97.4 F L Pulse Rate 65 61 Respiratory 20 18 18 Rate Blood Pressure 161/59 129/60 O2 Sat by Pulse 96 Oximetry (%) 03/17/17 03/18/17 03/18/17 22:00 06:00 09:00 Temperature 98.4 F 98.4 F Pulse Rate 70 60 Respiratory 18 18 Rate Blood Pressure 135/72 100/38 O2 Sat by Pulse 96 Oximetry (%) 03/18/17 10:00 Temperature 98.5 F Pulse Rate 65 Respiratory 18 Rate Blood Pressure 112/50 O2 Sat by Pulse Oximetry (%) Current Medications Generic Name Dose Route Start Last Admin Trade Name Freq PRN Reason Stop Dose Admin Aspirin 81 mg 03/16/17 10:00 03/18/17 10:33 Ecotrin - PO 81 mg DAILY CINDI Administration Bisacodyl 10 mg 03/14/17 13:49 Dulcolax Suppository - RC DAILY PRN CONSTIPATION Carvedilol 3.125 mg 03/15/17 22:00 03/18/17 10:33 Coreg - PO 3.125 mg BID CINDI Administration Clopidogrel Bisulfate 75 mg 03/16/17 10:00 03/18/17 10:33 Plavix - PO 75 mg DAILY CINDI Administration Heparin Sodium (Porcine) 5,000 unit 03/14/17 22:00 03/18/17 10:33 Heparin - SQ 5,000 unit BID CINDI Administration Insulin Aspart 0 units 03/14/17 11:00 03/18/17 11:59 Novolog Vial SQ 4 units TIDAC CINDI Administration Protocol Levothyroxine Sodium 100 mcg 03/16/17 07:00 03/18/17 06:13 Synthroid - PO 100 mcg DAILY@0700 C[facility]I Administration Laboratory Results - last 24 hr 03/17/17 03/17/17 03/17/17 06:00 16:46 21:21 POC Glucometer 175 237 Free T4 1.06 Free T3 1.3 L Total T3 49.00 L 03/18/17 03/18/17 06:12 11:27 POC Glucometer 165 218 Free T4 Free T3 Total T3 S1 S2 RRR Lungs clear Abd- soft, decreased distension, NT Rt amputation Left leg- no edema PLAN -- noted third surgical opinion -- option of loop colostomy noted but when I spoke with both DR Palomino and DR Gipson today, pt does not have good intestinal motility for the colostomy to function. -- pt is indeed high risk to undergo procedures and if colostomy is ultimately not going to benefit the pt, then I am hesitant to clear her for the surgery. -- She has CAD and Afib paroxysmal -- spoke with DR Carlos Alberto Ramos today who knows the pt from previous admissions - agrees she is high risk, feels that pt would benefit from non invasive procedures like occasional decompression with rectal tube and fleet enemas daily . -- ID eval for ESBL in urine -- dc Levaquin -- had ESBL in urine in previous cultures - possibly a colonizer Problem List - Problems (1) Hypothyroid Code(s): E03.9 - HYPOTHYROIDISM, UNSPECIFIED Qualifiers: Hypothyroidism type: acquired Qualified Code(s): E03.9 - Hypothyroidism, unspecified (2) [place]'s syndrome Code(s): K59.8 - OTHER SPECIFIED FUNCTIONAL INTESTINAL DISORDERS (3) Pseudoobstruction of colon Code(s): K59.8 - OTHER SPECIFIED FUNCTIONAL INTESTINAL DISORDERS (4) Abdominal distention Code(s): R14.0 - ABDOMINAL DISTENSION (GASEOUS) (5) Adynamic ileus Code(s): K56.0 - PARALYTIC ILEUS (6) Anemia Code(s): D64.9 - ANEMIA, UNSPECIFIED Qualifiers: Anemia type: unspecified type Qualified Code(s): D64.9 - Anemia, unspecified (7) Aortic stenosis Code(s): I35.0 - NONRHEUMATIC AORTIC (VALVE) STENOSIS Qualifiers: Cardiac valve disease etiology: etiology unspecified Qualified Code(s): I35.0 - Nonrheumatic aortic (valve) stenosis (8) CAD (coronary artery disease) Code(s): I25.10 - ATHSCL HEART DISEASE OF [place] CORONARY ARTERY W/O ANG PCTRS Qualifiers: Coronary Disease-Associated Artery/Lesion type: [place] artery [place] vs. transplanted heart: [place] heart Associated angina: without angina Qualified Code(s): I25.10 - Atherosclerotic heart disease of [place] coronary artery without angina pectoris
--- NOTE | 2017-03-18 12:51 | PN ---
Physical Exam: SUBJECTIVE: Patient seen and examined OBJECTIVE: Vital Signs Period Temp Pulse Resp BP Sys/Hernandez Pulse Ox Last 24 Hr 97.4 F-98.5 F 60-70 18-20 100-161/38-72 96-96 GENERAL: The patient is awake, alert, and fully oriented, in no acute distress. HEAD: Normal with no signs of trauma. EYES: PERRL, extraocular movements intact, sclera anicteric, conjunctiva clear. No ptosis. ENT: Ears normal, nares patent, oropharynx clear without exudates, moist mucous membranes. NECK: Trachea midline, full range of motion, supple. LUNGS: Breath sounds equal, clear to auscultation bilaterally, no wheezes, no crackles, no accessory muscle use. HEART: Regular rate and rhythm, S1, S2 without murmur, rub or gallop. ABDOMEN: Soft, nontender, nondistended, normoactive bowel sounds, no guarding, no rebound, no hepatosplenomegaly, no masses. EXTREMITIES: 2+ pulses, warm, well-perfused, no edema. NEUROLOGICAL: Cranial nerves II through XII grossly intact. Normal speech, gait not observed. PSYCH: Normal mood, normal affect. SKIN: Warm, dry, normal turgor, no rashes or lesions noted Laboratory Results - last 24 hr 03/17/17 03/17/17 03/17/17 06:00 16:46 21:21 POC Glucometer 175 237 Free T4 [place] 1.06 Free T3 1.3 L Total T3 49.00 L 03/18/17 03/18/17 06:12 11:27 POC Glucometer 165 218 Free T4 [place] Free T3 Total T3 Active Medications Generic Name Dose Route Start Last Admin Trade Name Freq PRN Reason Stop Dose Admin Aspirin 81 mg 03/16/17 10:00 03/18/17 10:33 Ecotrin - PO 81 mg DAILY CINDI Administration Bisacodyl 10 mg 03/14/17 13:49 Dulcolax Suppository - RC DAILY PRN CONSTIPATION Carvedilol 3.125 mg 03/15/17 22:00 03/18/17 10:33 Coreg - PO 3.125 mg BID CINDI Administration Clopidogrel Bisulfate 75 mg 03/16/17 10:00 03/18/17 10:33 Plavix - PO 75 mg DAILY CINDI Administration Insulin Aspart 0 units 03/14/17 11:00 03/18/17 11:59 Novolog Vial SQ 4 units TIDAC CINDI Administration Protocol Levothyroxine Sodium 100 mcg 03/16/17 07:00 03/18/17 06:13 Synthroid - PO 100 mcg DAILY@0700 CINDI Administration ASSESSMENT/PLAN:
--- NOTE | 2017-03-18 13:28 | PN ---
Progress Note, Physician Chief Complaint: ID Symptomatic afebrile wit no urinary complaints - Current Medication List Current Medications: Active Medications Aspirin (Ecotrin -) 81 mg PO DAILY [facility] Last Admin: 03/18/17 10:33 Dose: 81 mg Bisacodyl (Dulcolax Suppository -) 10 mg RC DAILY PRN PRN Reason: CONSTIPATION Carvedilol (Coreg -) 3.125 mg PO BID [facility] Last Admin: 03/18/17 10:33 Dose: 3.125 mg Clopidogrel Bisulfate (Plavix -) 75 mg PO DAILY [facility] Last Admin: 03/18/17 10:33 Dose: 75 mg Insulin Aspart (Novolog Vial) 0 units SQ TIDAC [facility] PRN Reason: Protocol Last Admin: 03/18/17 11:59 Dose: 4 units Levothyroxine Sodium (Synthroid -) 100 mcg PO DAILY@0700 [facility] Last Admin: 03/18/17 06:13 Dose: 100 mcg - Objective Vital Signs: Vital Signs Temperature 98.5 F 03/18/17 10:00 Pulse Rate 65 03/18/17 10:00 Respiratory Rate 18 03/18/17 10:00 Blood Pressure 112/50 03/18/17 10:00 O2 Sat by Pulse Oximetry (%) 96 03/18/17 09:00 Gastrointestinal: Yes: Soft. No: Tenderness Labs: CBC, BMP 03/14/17 07:49 03/14/17 07:49 INR, PTT INR 1.10 (0.82-1.09) 03/13/17 20:30 Problem List - Problems (1) UTI due to extended-spectrum beta lactamase (ESBL) producing Escherichia coli Code(s): N39.0 - URINARY TRACT INFECTION, SITE NOT SPECIFIED; A49.8 - OTHER BACTERIAL INFECTIONS OF UNSPECIFIED SITE; Z16.12 - EXTENDED SPECTRUM BETA LACTAMASE (ESBL) RESISTANCE Assessment/Plan Microbiology 03/14/17 17:00 Urine - Urine - Catheterized Urine Culture - Final Klebsiella Pneumoniae Escherichia Coli Esbl Topology Professor 03/14/17 14:40 Blood - Peripheral Venous Blood Culture - Preliminary NO GROWTH OBTAINED AFTER 72 HOURS, INCUBATION TO CONTINUE FOR 2 DAYS. 03/14/17 14:40 Blood - Peripheral Venous Blood Culture - Preliminary NO GROWTH OBTAINED AFTER 72 HOURS, INCUBATION TO CONTINUE FOR 2 DAYS. Selected Entries 03/18/17 10:00 Temperature 98.5 F Laboratory Tests 03/14/17 03/14/17 07:49 07:49 WBC 11.3 H Hgb 11.9 Plt Count 176 BUN 49 H Creatinine 1.1 H Assessment Asymptomatic bacteruria Multidrug resistant organism Plan I see no reason for antibiotic treatment at the current time ALready on contact isolation Mauricio BARTON
--- NOTE | 2017-03-18 14:27 | CONS ---
DATE OF CONSULTATION: DATE OF DICTATION: 03/18/2017 This is an 86-year-old morbidly obese female who I am asked to comment on a positive urine culture for an ESBL organism. She has a history of hypertension, diabetes, morbid obesity, hypothyroidism, coronary artery disease, CHF, aortic stenosis, and peripheral vascular disease, dementia, and [place] syndrome. She was sent from [facility] with abdominal distention over 3 days, and here was found to have colonic distention confirmed with CAT scan and air and liquid in the colon and rectum. She was afebrile at the time of admission and had a mild leukocytosis. A rectal tube was placed, which apparently was helpful in resolving her abdominal distention. A urine culture was obtained on admission which has 2 organisms, and ESBL E. coli and klebsiella. I am asked to see her for further evaluation, noting that she is on no antibiotics, has been afebrile throughout her admission, and has absolutely no urinary complaints. PAST MEDICAL HISTORY: As noted above. CURRENT MEDICATIONS: Include Coreg, insulin, Ecotrin, Plavix, Synthroid. ALLERGIES: PENICILLIN and VANCOMYCIN, the nature of which I am unclear. SOCIAL HISTORY: Lives in a custodial, former smoker, gave this up many years ago. No history of alcohol use. FAMILY HISTORY: Reviewed, noncontributory. REVIEW OF SYSTEMS: Respiratory: No cough, shortness of breath. Cardiac: No chest pain, palpitations. Gastrointestinal: Currently no abdominal pain, vomiting, diarrhea, blood per rectum. Genitourinary: No dysuria, hematuria, urinary frequency. PHYSICAL EXAMINATION: General: Physical examination revealed a heavy-set woman weighing 252 pounds, temperature 98.5, blood pressure 112/50, respirations 18.Neck: Supple, without adenopathy. Lungs: Clear to percussion, auscultation. Heart: S1, S2. Regular rhythm without audible murmur. Abdomen: Obese, soft, nontender. Extremities: Reveal efcdb-[id number] amputation. LABORATORY: White count 11.3, hemoglobin 11.9, platelets of 176. BUN 49, creatinine 1.1. No urinalysis available. Urine culture with ESBL E. coli, Klebsiella pneumoniae sensitive. 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 At this point she is on contact isolation. I did not see any indication for antibiotic treatment. DENIZ LOVELACE M.D. [facility]/[id number]
[2017-03-19] MEDS: INSULIN (NOVOLOG) ASPART 100 UNITS/ML 10ML VIAL SQ SCH ×3 (06:46→17:24)
[2017-03-19] MEDS: LEVOTHYROXINE NA 100 MCG TABLET (FP) PO SCH (06:47)
[2017-03-19] MEDS: CLOPIDOGREL BISULFATE 75 MG TABLET (FP) PO SCH (10:18)
[2017-03-19] MEDS: ASPIRIN COATED 81 MG TABLET.EC PO SCH (10:18)
[2017-03-19] MEDS: CARVEDILOL 3.125 MG TABLET (FP) PO SCH ×2 (10:18→22:48)
--- NOTE | 2017-03-19 10:52 | PN ---
Progress Note, Physician Chief Complaint: abdominal distention History of Present Illness: No overnight events. Rectal tube in place. Tolerating soft diet. Pt appears comfortable, resting in bed. No complaints, belly feels "ok." No abdominal pain. - Current Medication List Current Medications: Active Medications Aspirin (Ecotrin -) 81 mg PO DAILY REPLACED BY [facility] Last Admin: 03/19/17 10:18 Dose: 81 mg Bisacodyl (Dulcolax Suppository -) 10 mg RC DAILY PRN PRN Reason: CONSTIPATION Carvedilol (Coreg -) 3.125 mg PO BID REPLACED BY [facility] Last Admin: 03/19/17 10:18 Dose: 3.125 mg Clopidogrel Bisulfate (Plavix -) 75 mg PO DAILY REPLACED BY [facility] Last Admin: 03/19/17 10:18 Dose: 75 mg Insulin Aspart (Novolog Vial) 0 units SQ TIDAC REPLACED BY [facility] PRN Reason: Protocol Last Admin: 03/19/17 06:46 Dose: 2 units Levothyroxine Sodium (Synthroid -) 100 mcg PO DAILY@0700 REPLACED BY [facility] Last Admin: 03/19/17 06:47 Dose: 100 mcg - Objective Vital Signs: Vital Signs Temperature 97.6 F 03/19/17 09:08 Pulse Rate 64 03/19/17 09:08 Respiratory Rate 20 03/19/17 09:08 Blood Pressure 115/75 03/19/17 09:08 O2 Sat by Pulse Oximetry (%) 96 03/18/17 21:00 Constitutional: Yes: No Distress, Calm, Obese Eyes: Yes: Conjunctiva Clear, EOM Intact Gastrointestinal: Yes: Soft, Abdomen, Obese, Distention (moderate). No: Tenderness ...Rectal Exam: Yes: Other (rectal tube with soft brown stool evident at lumen, removed. Rectal exam after reveals no formed stool in vault, thin/soft brown stool present. Small mobile, pedunculated, likely internal hemorrhoid palpable just inside anus. Sphincter tone slightly loose.) Genitourinary: Yes: Incontinence (in diaper) Extremities: Yes: Amputation (R BKA). No: Cool, Cyanosis Integumentary: Yes: Venous Stasis Changes (LLE). No: Rash Neurological: Yes: Alert, Confusion (baseline dementia), Other (can feed self) Psychiatric: Yes: Alert. No: Agitated Labs: no labs since 11/26 Problem List - Problems (1) [place]'s syndrome Assessment/Plan: Pt without abdominal pain or tenderness tolerating diet rectal tube removed GI following additional surgical opinions noted, but pt high risk for surgical intervention, and without adequate colon motility, colostomy would still require at least daily enemas for stool evacuation ensure lytes in normal range when back on home meds, would d/c lactulose and not resume (inpatient or outpatient), as it contributes to gas formation and recurrent distention pt will continue to need enemas on at least daily basis for stool evacuation Code(s): K59.8 - OTHER SPECIFIED FUNCTIONAL INTESTINAL DISORDERS (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 transplanted heart: [place] heart Associated angina: without angina Qualified Code(s): I25.10 - Atherosclerotic heart disease of [place] coronary artery without angina pectoris (5) CHF (congestive heart failure) Assessment/Plan: on Carvedilol Code(s): I50.9 - HEART FAILURE, UNSPECIFIED Qualifiers: Congestive heart failure type: diastolic Congestive heart failure chronicity: chronic Qualified Code(s): I50.32 - Chronic diastolic (congestive ) heart failure (6) Aortic stenosis Code(s): I35.0 - NONRHEUMATIC AORTIC (VALVE) STENOSIS Qualifiers: Cardiac valve disease etiology: etiology unspecified Qualified Code(s): I35.0 - Nonrheumatic aortic (valve) stenosis (7) Hypothyroid Assessment/Plan: on Synthroid Code(s): E03.9 - HYPOTHYROIDISM, UNSPECIFIED Qualifiers: Hypothyroidism type: acquired Qualified Code(s): E03.9 - Hypothyroidism, unspecified (8) Dementia Assessment/Plan: daughter is POA Code(s): F03.90 - UNSPECIFIED DEMENTIA WITHOUT BEHAVIORAL DISTURBANCE Qualifiers: Dementia type: Alzheimer's disease Alzheimer's disease onset: late-onset Dementia behavioral disturbance: without behavioral disturbance Qualified Code (s): G30.1 - Alzheimer's disease with late onset; F02.80 - Dementia in other diseases classified elsewhere without behavioral disturbance; F02.80 - Dementia in other diseases classified elsewhere without behavioral disturbance; F02.80 - Dementia in other diseases classified elsewhere without behavioral disturbance (9) HLD (hyperlipidemia) Code(s): E78.5 - HYPERLIPIDEMIA, UNSPECIFIED Qualifiers: Hyperlipidemia type: unspecified Qualified Code(s): E78.5 - Hyperlipidemia , unspecified (10) HTN (hypertension) Code(s): I10 - ESSENTIAL (PRIMARY) HYPERTENSION Qualifiers: Hypertension type: essential hypertension Qualified Code(s): I10 - Essential (primary) hypertension (11) Morbid obesity Code(s): E66.01 - MORBID (SEVERE) OBESITY DUE TO EXCESS CALORIES (12) UTI due to extended-spectrum beta lactamase (ESBL) producing Escherichia coli Assessment/Plan: and non ESBL Klebsiella had been on Levofloxacin, but E. coli resistant no antibiotics per ID Code(s): N39.0 - URINARY TRACT INFECTION, SITE NOT SPECIFIED; A49.8 - OTHER BACTERIAL INFECTIONS OF UNSPECIFIED SITE; Z16.12 - EXTENDED SPECTRUM BETA LACTAMASE (ESBL) RESISTANCE
[2017-03-19 12:14] LABS: ANION GAP 10 (8-16); CALCIUM 8.3 mg/dL (8.5-10.1); CO2 33 mmol/L (21-32); CREATININE 0.8 mg/dL (0.55-1.02); GLUCOSE,RANDOM 220 mg/dL (74-106); MAGNESIUM 1.8 mg/dL (1.8-2.4)
[2017-03-19] MEDS ORDERED: POTASSIUM CHLORIDE ORAL LIQUID 20 MEQ/15 ML PO ONE (12:23)
--- NOTE | 2017-03-19 12:23 | PN ---
Progress Note, Physician Chief Complaint: pt awake today eats well no complaints of abdominal pain as per nurse, pt is having BM rectal tube removed - Current Medication List Current Medications: Active Medications Aspirin (Ecotrin -) 81 mg PO DAILY [facility] Last Admin: 03/19/17 10:18 Dose: 81 mg Bisacodyl (Dulcolax Suppository -) 10 mg RC DAILY PRN PRN Reason: CONSTIPATION Carvedilol (Coreg -) 3.125 mg PO BID [facility] Last Admin: 03/19/17 10:18 Dose: 3.125 mg Clopidogrel Bisulfate (Plavix -) 75 mg PO DAILY [facility] Last Admin: 03/19/17 10:18 Dose: 75 mg Insulin Aspart (Novolog Vial) 0 units SQ TIDAC [facility] PRN Reason: Protocol Last Admin: 03/19/17 12:01 Dose: 2 units Levothyroxine Sodium (Synthroid -) 100 mcg PO DAILY@0700 [facility] Last Admin: 03/19/17 06:47 Dose: 100 mcg - Objective Vital Signs: Vital Signs Temperature 97.6 F 03/19/17 09:08 Pulse Rate 64 03/19/17 09:08 Respiratory Rate 20 03/19/17 09:08 Blood Pressure 115/75 03/19/17 09:08 O2 Sat by Pulse Oximetry (%) 96 03/18/17 21:00 Constitutional: Yes: No Distress, Calm Cardiovascular: Yes: Pulse Irregular Respiratory: Yes: CTA Bilaterally Gastrointestinal: Yes: Normal Bowel Sounds, Soft. 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 - OTHER SPECIFIED FUNCTIONAL INTESTINAL DISORDERS (3) Pseudoobstruction of colon Code(s): K59.8 - OTHER SPECIFIED FUNCTIONAL INTESTINAL DISORDERS (4) Abdominal distention Code(s): R14.0 - ABDOMINAL DISTENSION (GASEOUS) (5) Adynamic ileus Code(s): K56.0 - PARALYTIC ILEUS (6) Anemia Code(s): D64.9 - ANEMIA, UNSPECIFIED Qualifiers: Anemia type: unspecified type Qualified Code(s): D64.9 - Anemia, unspecified (7) Aortic stenosis Code(s): I35.0 - NONRHEUMATIC AORTIC (VALVE) STENOSIS Qualifiers: Cardiac valve disease etiology: etiology unspecified Qualified Code(s): I35.0 - Nonrheumatic aortic (valve) stenosis (8) CAD (coronary artery disease) Code(s): I25.10 - ATHSCL HEART DISEASE OF [place] CORONARY ARTERY W/O ANG PCTRS Qualifiers: Coronary Disease-Associated Artery/Lesion type: [place] artery [place] vs. transplanted heart: [place] heart Associated angina: without angina Qualified Code(s): I25.10 - Atherosclerotic heart disease of [place] coronary artery without angina pectoris Assessment/Plan PLAN Pt at her baseline tolerating diet ID eval noted no antibiotics rectal tube removed labs noted- replace lytes recommend enemas daily, anna crump planning to [place]
--- NOTE | 2017-03-19 15:17 | PN ---
Progress Note, Physician History of Present Illness: Awake, alert No complaints Denies dysuria No suprapubic pain - Current Medication List Current Medications: Active Medications Aspirin (Ecotrin -) 81 mg PO DAILY [facility] Last Admin: 03/19/17 10:18 Dose: 81 mg Bisacodyl (Dulcolax Suppository -) 10 mg RC DAILY PRN PRN Reason: CONSTIPATION Carvedilol (Coreg -) 3.125 mg PO BID [facility] Last Admin: 03/19/17 10:18 Dose: 3.125 mg Clopidogrel Bisulfate (Plavix -) 75 mg PO DAILY [facility] Last Admin: 03/19/17 10:18 Dose: 75 mg Insulin Aspart (Novolog Vial) 0 units SQ TIDAC [facility] PRN Reason: Protocol Last Admin: 03/19/17 12:01 Dose: 2 units Levothyroxine Sodium (Synthroid -) 100 mcg PO DAILY@0700 [facility] Last Admin: 03/19/17 06:47 Dose: 100 mcg - Objective Vital Signs: Vital Signs Temperature 97.6 F 03/19/17 09:08 Pulse Rate 64 03/19/17 09:08 Respiratory Rate 20 03/19/17 09:08 Blood Pressure 115/75 03/19/17 09:08 O2 Sat by Pulse Oximetry (%) 98 03/19/17 09:00 Constitutional: Yes: No Distress Eyes: Yes: Conjunctiva Clear Cardiovascular: Yes: Regular Rate and Rhythm, S1, S2 Respiratory: Yes: Diminished Gastrointestinal: Yes: Normal Bowel Sounds, Soft, Abdomen, Obese. No: Tenderness Edema: Yes Labs: CBC, BMP 03/14/17 07:49 03/19/17 11:35 INR, PTT INR 1.10 (0.82-1.09) 03/13/17 20:30 Assessment/Plan Asymptomatic bacteruria No treatment Contact precautions
[2017-03-19] MEDS: SENNOSIDES 8.6MG TABLET (FP) PO SCH ×2 (17:22→22:48)
[2017-03-20] MEDS: INSULIN (NOVOLOG) ASPART 100 UNITS/ML 10ML VIAL SQ SCH ×2 (06:50→12:10)
[2017-03-20] MEDS: LEVOTHYROXINE NA 100 MCG TABLET (FP) PO SCH (06:51)
[2017-03-20] MEDS: ASPIRIN COATED 81 MG TABLET.EC PO SCH (09:32)
[2017-03-20] MEDS: CLOPIDOGREL BISULFATE 75 MG TABLET (FP) PO SCH (09:32)
[2017-03-20] MEDS: CARVEDILOL 3.125 MG TABLET (FP) PO SCH (09:34)
[2017-03-20 10:03] VITALS: TEMP 98.1
[2017-03-20] MEDS ORDERED: INSULIN (NOVOLOG) ASPART 100 UNITS/ML 10ML VIAL ONE (12:08)
--- NOTE | 2017-03-20 12:39 | DS ---
Physical Examination Vital Signs: Vital Signs Temperature 98.1 F 03/20/17 10:00 Pulse Rate 63 03/20/17 10:00 Respiratory Rate 20 03/20/17 10:00 Blood Pressure 100/46 03/20/17 10:00 O2 Sat by Pulse Oximetry (%) 98 03/20/17 10:00 Findings/Remarks: pt seen examined . chart reviewed. eating lunch no complains denies pain. Constitutional: Yes: No Distress, Calm Eyes: Yes: Conjunctiva Clear Neck: Yes: Supple Cardiovascular: Yes: Regular Rate and Rhythm Respiratory: Yes: Diminished Gastrointestinal: Yes: Soft Edema: No Neurological: Yes: Alert Labs: CBC, BMP 03/14/17 07:49 03/19/17 11:35 Discharge Summary Reason For Visit: ACUTE PSEUDO-OBSTRUCTION OF COLON Current Active Problems DVT prophylaxis (Acute) H/O: hypothyroidism (Acute) Hypothyroid (Acute) Penny's syndrome (Acute) Pseudoobstruction of colon (Acute) Secondary chronic pseudo-obstruction of intestine (Acute) UTI due to extended-spectrum beta lactamase (ESBL) producing Escherichia coli ( Acute) Hospital Course: pt with extensive pmhx is admitted for abdominal distension treated conservatively gi and surgery followed treated conservatively. better/ rectal tube removed will d/c today need rectal tube prn in assisted. no lactulose discussed with Dr. Chan also Meds reconcilled. discussed with nursing staff also. d/c time 35 min in examining/ reviewing chart and coordating care. Condition: Improved - Instructions Diet, Activity, Other Instructions: frequent turning, check lytes weekly, enemas daily or at least every other day . No Lactulose, miralax, colace, MOM Referrals: Ebenezer Farris MD [Primary Care Provider] - Disposition: [facility] - Home Medications Comprehensive Discharge Medication List: Ambulatory Orders Carvedilol 3.125 mg PO BID 09/19/15 Cholecalciferol (Vitamin D3) [Vitamin D3] 1,000 unit PO DAILY 09/19/15 Furosemide [Lasix -] 40 mg PO DAILY 09/19/15 Insulin Aspart [Novolog Flexpen] 0 unit SQ ASDIR 09/19/15 Insulin Glargine,Hum.rec.anlog [Lantus Solostar PEN -] 20 units SQ DAILY Levothyroxine [Synthroid -] 100 mcg PO DAILY 09/19/15 Multivitamins [Multivit ([facility] Formulary)] 1 tab PO DAILY 09/19/15 Sennosides [Senna] 2 tab PO HS 09/19/15 Potassium Chloride [K-Dur -] 20 meq PO DAILY #30 tablet.er 09/24/15 Pantoprazole Sodium [Protonix -] 40 mg PO BID #60 tab 10/16/16 Aspirin [Aspirin EC] 81 mg PO DAILY 11/11/16 Clopidogrel Bisulfate [Clopidogrel] 75 mg PO DAILY 11/11/16 Heparin - 5,000 unit SQ BID vial 11/13/16 Bisacodyl Suppository [Dulcolax Suppository -] 10 mg RC DAILY PRN #30 supp.rect 03/19/17 Mineral Oil Enema [Fleet Mineral Oil Rectal Enema -] 133 ml RC Q2D #30 enema 05/05 Sennosides [Senna -] 2 tab PO HS #90 tablet 03/19/17 Insulin (Novolog) [Novolog -] 0 units SQ TIDAC units 03/20/17 Na Phos,M-B/Na Phos,Di-Ba [Fleet Enema] 133 ml RC DAILY PRN #30 enema 03/20/17 No lactulose
[2017-03-20 15:08] VITALS: BP 112/52; PULSE 60
== END 2017-03-20 15:14 | DRG 391 ==
LOC: JER 17:09 → JERBED 03-14 03:53 → J7W 03-14 05:37
PROVIDERS: ADMIT Internal Medicine; ATTEND Internal Medicine
DX: K59.8 Other specified functional intestinal disorders (principal); G93.41 Metabolic encephalopathy; I50.32 Chronic diastolic (congestive) heart failure; Z68.41 Body mass index [BMI] 40.0-44.9, adult; N39.0 Urinary tract infection, site not specified; K56.0 Paralytic ileus; I11.0 Hypertensive heart disease with heart failure; I48.91 Unspecified atrial fibrillation; I25.10 Atherosclerotic heart disease of native coronary artery without angina pectoris; Z89.511 Acquired absence of right leg below knee; F03.90 Unspecified dementia, unspecified severity, without behavioral disturbance, psychotic disturbance, mood disturbance, and anxiety; E78.5 Hyperlipidemia, unspecified; E66.01 Morbid (severe) obesity due to excess calories; E03.9 Hypothyroidism, unspecified; Z87.891 Personal history of nicotine dependence; I35.0 Nonrheumatic aortic (valve) stenosis; I73.9 Peripheral vascular disease, unspecified; Z88.0 Allergy status to penicillin; E11.40 Type 2 diabetes mellitus with diabetic neuropathy, unspecified; Z66 Do not resuscitate; B96.1 Klebsiella pneumoniae [K. pneumoniae] as the cause of diseases classified elsewhere; B96.20 Unspecified Escherichia coli [E. coli] as the cause of diseases classified elsewhere; Z51.89 Encounter for other specified aftercare; Z79.4 Long term (current) use of insulin
CPT/HCPCS: 36415; 71010-TC; 74000-TC; 74020-TC; 74177-TC; 80048; 80053; 82272; 83605; 83690; 83735; 84439; 84443; 84480; 84481; 85025; 85610; 85730; 86850; 86900; 86901; 87040; 87086; 87186; 93005; 93010; 99283-25; J1644